=== PATIENT | male | born 1930 | race Caucasian/White ===

== ENCOUNTER 2016-06-29 11:18 | Observation (INO) ==
--- NOTE | 2016-06-29 11:38 | Emergency Department Note ---
Disposition Clinical Impression: REMEDIOS (acute kidney injury), Dizziness Disposition: Admitted As Inpatient Forms: ED Satisfaction Letter Time of Disposition: 14:41 Dizziness HPI - General Chief Complaint: ED Fall Stated Complaint: DIZZY/NEAR SYNCOPE. Time Seen by Provider: 06/29/16 11:21 Source: patient Mode of arrival: EMS Limitations: no limitations Nursing Notes Reviewed: Yes Vital Signs Reviewed: Yes - History of Present Illness HPI Narrative: 85-year-old male history of hypertension, hyperlipidemia, CAD status post CABG 1979 presents to the ED via EMS for fall secondary to dizziness. Reports getting up from his commode turning around to brush his teeth when he felt dizzy like the room is spinning and fell back landing in the top instructing the back of his head on the tube. Reports generalized weakness in his legs and was unable to get himself up from the tub. Reports taking a baby aspirin and states Eliquis sounds like a familiar drug. He has multiple abrasions to the upper extremity mostly on the right. No obvious signs of trauma to the head. He reports feeling dizzy like this a few days ago. He follows with a routing machine operator Dr. Ralph in [place]. Denies any loss of consciousness. Patient was alert through the entire event. Denies any prodromal symptoms such as chest pain, shortness of breath, nausea or vomiting. Denies any sudden headache. Denies history of seizures. Pt Subjective Complaint: dizziness, weakness - Related Data Home Medications Medication Instructions Recorded Confirmed Alprazolam [Xanax 0.25 MG Tablet] 0.25 mg PO DAILY PRN 02/18/16 06/29/16 Amiodarone HCl [Pacerone] 200 mg PO DAILY 02/18/16 06/29/16 Aspirin [Lo-Dose Aspirin EC] 81 mg PO DAILY 02/18/16 06/29/16 Atorvastatin Calcium [Lipitor] 80 mg PO HS 02/18/16 06/29/16 Finasteride [Proscar] 5 mg PO DAILY 02/18/16 06/29/16 Furosemide [Lasix] 40 mg PO DAILY 02/18/16 06/29/16 Levothyroxine Sodium [Levoxyl] 50 mcg PO QAM 02/18/16 06/29/16 Lisinopril [Zestril] 40 mg PO DAILY 02/18/16 06/29/16 Nitroglycerin [Nitrostat] 0.4 mg SL Q5M PRN 02/18/16 06/29/16 Oxybutynin Chloride [Ditropan Xl] 10 mg PO HS 02/18/16 06/29/16 Potassium Chloride [Klor-Con 10 meq PO TID 02/18/16 06/29/16 Sprinkle] TraMADol [Ultram] 50 mg PO TID 02/18/16 06/29/16 Cholecalciferol (Vitamin D3) 2,000 unit PO DAILY 06/29/16 06/29/16 [Vitamin D] Galantamine HBr [Razadyne] 4 mg PO QAM 06/29/16 06/29/16 Isosorbide MONOnitrate (24 HR) 60 mg PO BID 06/29/16 06/29/16 [Imdur] Vitamin E (Dl,Tocopheryl Acet) 400 unit PO DAILY 06/29/16 06/29/16 [Vitamin E] Allergies Allergy/AdvReac Type Severity Reaction Status Date / Time acetaminophen [From Percocet] AdvReac Hallucinati Verified 06/29/16 11:29 ng Oxycodone [From Percocet] AdvReac Hallucinati Verified 06/29/16 11:29 ng All systems ED: reviewed and negative except as stated. Constitutional: Denies: fever, chills Eyes: Denies: vision change Cardiovascular: Denies: chest pain, palpitations, dyspnea on exertion Respiratory: Denies: cough, dyspnea Gastrointestinal: Denies: abdominal pain, nausea, vomiting Musculoskeletal: Denies: neck pain Integumentary: Reports: abrasion. Denies: rash Neurological: Reports: weakness, vertigo. Denies: headache Past Medical History - Past Medical History Attestation: Yes The following information was validated with the patient. Source: patient Medical history: Reports: hyperlipidemia, hypertension Surgical history: Reports: coronary bypass (CABG) (1979) Psychiatric history: Reports: no psych history - Social History Smoking Status: Never smoker Smokeless Tobacco Status: No Alcohol use: Reports: none Drug use: Reports: none Physical Exam - General Limitations: no limitations General appearance: alert, in no apparent distress - Head Head exam: atraumatic, normocephalic, normal inspection - Expanded Head Exam Head exam physicial: Absent: laceration, contusion, hematoma, raccoon eyes, De La Cruz's sign - Eye Eye exam: Present: normal appearance, PERRL, EOMI. Absent: nystagmus - ENT ENT exam: normal exam, normal oropharynx, mucous membranes moist, TM's normal bilaterally - Neck Neck exam: Present: normal inspection, full ROM, trachea midline. Absent: tenderness - Expanded Neck Exam Neck exam focused ED: Absent: midline tenderness, paraspinal tenderness, anterior neck swelling - Chest Chest inspection: Present: normal inspection, symmetric chest wall rise, other ( midline stenotomy scar). Absent: tenderness, rash - Respiratory Respiratory exam: Present: normal lung sounds bilaterally. Absent: respiratory distress, wheezes - Cardiovascular Cardiovascular exam: Present: regular rate, normal rhythm, normal heart sounds, other (NO MURMUR ON VALSALVA). Absent: systolic murmur, diastolic murmur - Abdominal Exam Abdominal exam: Present: soft, Non-Tender, normal bowel sounds. Absent: tenderness, distention, guarding, rebound, rigidity - Extremities Exam Extremities exam: Present: full ROM, pedal edema (NON-PITTING, VENOUS STASIS), other (ABRASIONS TO RIGHT UPPER EXTREMITY (ELBOW AND HAND) AND LEFT ELBOW). Absent: tenderness - Back Exam Back exam: Present: normal inspection, full ROM. Absent: tenderness, vertebral tenderness - Neurological Exam Neurological exam: Present: alert, oriented X3, CN II-XII intact - Expanded Neurological Exam Patient oriented to: Present: person, place, time (SATURDAY, , INCORRECT = 2015, NOVEMBER) Speech: Present: fluid speech Cranial nerves: EOM function (II, III, IV, ): Normal, facial sensation (V): Normal, facial palsy (VII): Normal, gag reflex (IX): Normal, spinal accessory function (XI): Normal, tongue deviation (XII): Normal Motor strength - LUE: 5/5 Motor strength - RUE: 5/5 Motor strength - LLE: 5/5 Motor strength - RLE: 5/5 Upper motor neuron exam: nuno neglect: Absent bilaterally, pronator drift: Absent bilaterally Sensory exam upper extremity: light touch: Normal Sensory exam lower extremity: light touch: Normal - Psychiatric Psychiatric exam: Present: normal affect, normal mood - Skin Skin exam: Present: warm, dry, intact, normal color - Expanded Skin Exam Type of lesion: Present: abrasion (UPPER EXTREMITY) Course Course Narrative: 85-year-old male history of cardiac disease presents to the ED for dizziness and fall. Patient was unable to get up after falling due to weakness in his legs. This was after feeling dizzy while preparing to brush his teeth he felt back landing in the top. Denies any prodromal symptoms such a chest pain or shortness of breath. He is hypertensive on initial BP, will recheck. Patient appears in no acute distress. He is alert and oriented to person place and time. He does not have any neck tenderness. No acute signs of trauma to the head or face. There are no abrasions or contusions to the head. No hematomas or signs for basilar skull fracture. No facial instability. Neurologic exam is normal without any focal neural deficits. He has multiple abrasions to the upper extremity that do not need repair. Heart's regular rate and rhythm. He has of midline scar consistent with the bypass. Lungs are clear to auscultation bilaterally. Abdomen is soft nontender nondistended. We will get a cardiac workup and image his head and neck. Patient reports no pain at this time. Disposition pending results. May likely need admission as he lives alone at home. Reports his son is on his way. - Reevaluation(s) Reevaluation #1: His glucose is low at 66. He appears dehydrated on his labs. His creatinine functions 1.7. Will give him a meal to eat and reevaluate. His son Suhail is in the room and reports he has been told he has low blood sugars in the past. Confirms that patient does not take Eliquis and only a baby aspirin. Patient reports the medication Eliquis sounded familiar from the commercials. Time: 12:42 Reevaluation #2: Patient was able to tolerate a meal tray. He continues to report some dizziness but does feel much better than before. Orthostatics are negative. Repeat blood pressure 170/90. He has not had any active nausea or vomiting. He was able to keep everything down. EKG does not reveal any acute ischemic changes. Troponin is negative. CT images do not reveal any acute intracranial abnormality or fracture. Chest x-ray appears normal. Does appear dehydrated on labs with elevated BUN. Discussion with his son Suhail, would appreciate if he was admitted. Patient only eats frozen meals at home. Daughter lives in the same apartment complex as him and son lives 20 minutes away and prepares his medications. Has frequent episodes of dizziness but also low blood sugars they report. Would likely benefit with admission as he lives by himself. Impression is dizziness and REMEDIOS. Time: 14:35 - Consultations Consultation #1: Spoke with on-call hospitalist libertad Devi to admit for dizziness and REMEDIOS. No further orders at this time Time: 14:40 Vital Signs Temperature 97.4 F L 06/29/16 11:21 Pulse Rate 80 06/29/16 11:21 Respiratory Rate 16 06/29/16 11:21 Blood Pressure 201/98 06/29/16 11:21 O2 Sat by Pulse Oximetry 97 06/29/16 11:21 Temperature 98.5 F 06/29/16 15:56 Pulse Rate 58 06/29/16 15:56 Respiratory Rate 18 06/29/16 15:56 Blood Pressure 161/86 06/29/16 15:56 O2 Sat by Pulse Oximetry 98 06/29/16 15:56 Oxygen Delivery Oxygen Delivery Room Air Dizziness - Medical Records Medical records reviewed: Yes I reviewed the patient's medical records. - Lab Data Lab results reviewed: Yes I reviewed the patient's lab results. Result diagrams: 06/29/16 11:47 06/29/16 11:47 Lab Results 06/29/16 06/29/16 06/29/16 Range/Units 11:47 11:47 11:47 WBC 14.2 H (4.3-11.1) K/mcL RBC 4.21 (4.19-5.50) M/mcL Hgb 13.7 (12.9-16.9) g/dL Hct 42.9 (37.5-50.1) % MCV 101.9 H (83.0-100.0) fL MCH 32.5 (28.0-33.3) pg MCHC 31.9 (31.6-35.5) g/dL RDW 14.5 (11.5-14.5) % Plt Count 198 (140-400) K/mcL MPV 11.2 (9.4-12.4) fL Immature Gran % 0.6 (0-4) % Seg Neutrophils % 82.9 % Lymphocytes % 6.9 % Monocytes % 9.5 % Eosinophils % 0.0 % Basophils % 0.1 % Neutrophils # 11.8 H (1.6-8.9) K/mcL Lymphocytes # 1.0 (0.6-4.6) K/mcL Monocytes # 1.4 H (0.0-1.3) K/mcL Eosinophils # 0.0 (0.0-0.6) K/mcL Basophils # 0.0 (0.0-0.2) K/mcL Sodium 144 (136-145) mEq/L Potassium 3.3 L (3.5-4.5) mEq/L Chloride 104 (98-109) mEq/L Carbon Dioxide 31 H (19-29) mEq/L BUN 51 H (8-26) mg/dL Creatinine 1.70 H (0.72-1.25) mg/dL Est GFR ( Amer) 46 L (> 60) Est GFR (Non-Af Amer) 38 L (> 60) BUN/Creatinine Ratio 30 H (6-26) Glucose 66 L (70-99) mg/dL POC Glucose (58-89) Calculated Osmolality 310 H (280-300) Calcium 9.3 (8.6-10.8) mg/dL Troponin I 0.03 (0-0.03) ng/mL 06/29/16 Range/Units 15:58 WBC (4.3-11.1) K/mcL RBC (4.19-5.50) M/mcL Hgb (12.9-16.9) g/dL Hct (37.5-50.1) % MCV (83.0-100.0) fL MCH (28.0-33.3) pg MCHC (31.6-35.5) g/dL RDW (11.5-14.5) % Plt Count (140-400) K/mcL MPV (9.4-12.4) fL Immature Gran % (0-4) % Seg Neutrophils % % Lymphocytes % % Monocytes % % Eosinophils % % Basophils % % Neutrophils # (1.6-8.9) K/mcL Lymphocytes # (0.6-4.6) K/mcL Monocytes # (0.0-1.3) K/mcL Eosinophils # (0.0-0.6) K/mcL Basophils # (0.0-0.2) K/mcL Sodium (136-145) mEq/L Potassium (3.5-4.5) mEq/L Chloride (98-109) mEq/L Carbon Dioxide (19-29) mEq/L BUN (8-26) mg/dL Creatinine (0.72-1.25) mg/dL Est GFR ( Amer) (> 60) Est GFR (Non-Af Amer) (> 60) BUN/Creatinine Ratio (6-26) Glucose (70-99) mg/dL POC Glucose 90 H (58-89) Calculated Osmolality (280-300) Calcium (8.6-10.8) mg/dL Troponin I (0-0.03) ng/mL - Radiology Data Radiology results reviewed: Yes I reviewed the patient's radiology results. Chest X-Ray 06/29/16 11:33 IMPRESSION: Negative portable chest x-ray. No evidence of acute cardiopulmonary disease. D/ / Jorge Luis New MD / Jorge Luis New MD Interpreting Provider: Jorge Luis New MD Head CT 06/29/16 11:33 IMPRESSION: 1. No acute intracranial process identified. 2. Diffuse cerebral volume loss and chronic small vessel ischemic changes. D/ / Stu Rojas MD / Stu Rojas MD Interpreting Provider: Stu Rojas MD Cervical Spine CT 06/29/16 11:44 IMPRESSION: No acute abnormality of the cervical spine. Osteopenia with multilevel degenerative disc disease and facet arthropathy as outlined above. D/ / Yossi Hernandez MD / Yossi Hernandez MD Interpreting Provider: Yossi Hernandez MD - EKG Data EKG attestation: Yes I reviewed and interpreted this EKG. EKG results narrative: EKG performed 1123 normal sinus rhythm with first-degree AV block 69 bpm MD interval 228, left axis deviation, possible LVH from voltage in aVL >14 mm, there are no ST elevations or depressions, T-wave inversions seen in V2. Otherwise other intervals are within normal limits QRS 124 QT QTC 448 467. Compared to old EKG performed 02/18/2016 shows consistent findings T wave is upright in V2. No acute ischemic changes. Attestation Statement - Attestation Attestation: I examined this patient and my medical decision-making was reviewed with the RICE FARMWORKER/PA/Advanced Practice Nurse/Resident Physician. I agree with the documented findings, disposition and treatment plan as described except to the extent set forth below. Patient to the emergency department with a chief complaint of dizziness. Patient states he was brushing his teeth and he got dizzy. He fell backwards into the tub. Denies injury and states he feels better. History of similar episodes. He does have a history of heart disease. On exam he sitting up in bed awake alert in no distress. He has a few scattered abrasions. Lungs clear. Plan. Cardiac workup with imaging of the head and C-spine. Patient admitted for acute kidney injury and safety concerns.
[2016-06-29 12:05] LABS: Basophils % 0.1 %; Hematocrit 42.9 % (37.5-50.1); Hemoglobin 13.7 g/dL (12.9-16.9); Immature Granulocytes % 0.6 % (0-4); Lymphocytes % 6.9 %; Mean Corpuscular HGB Conc 31.9 g/dL (31.6-35.5); Mean Corpuscular Hemoglobin 32.5 pg (28.0-33.3); Mean Corpuscular Volume 101.9 fL (83.0-100.0); Mean Platelet Volume 11.2 fL (9.4-12.4); Monocytes # 1.4 K/mcL (0.0-1.3); Monocytes % 9.5 %; Neutrophils # 11.8 K/mcL (1.6-8.9); Platelet Count 198 K/mcL (140-400); Red Blood Count 4.21 M/mcL (4.19-5.50); Red Cell Distribution Width 14.5 % (11.5-14.5); Segmented Neutrophils % 82.9 %
[2016-06-29 12:16] LABS: Calcium 9.3 mg/dL (8.6-10.8); Potassium 3.3 mEq/L (3.5-4.5)
--- NOTE | 2016-06-29 15:08 | Electrocardiograph Report ---
[place] [id number] Test Date: 2016-06-29 Pat Name: Kelvin Ralph Department: 103 Room: 3B Gender: M Underwriting Account Representative: : 1930 Requested By: Ahmet Rivera Order Number: [id number] Reading MD: Rachel Medley Measurements Intervals [place] Rate: 69 P: 96 MA: 228 QRS: -48 QRSD: 124 T: 81 QT: 448 QTc: 467 Interpretive Statements SINUS RHYTHM WITH FIRST DEGREE AV BLOCK LEFT ANTERIOR FASCICULAR BLOCK LEFT VENTRICULAR HYPERTROPHY AND ST-T CHANGE POSSIBLE LATERAL MYOCARDIAL INFARCTION, OF INDETERMINATE AGE Electronically Signed On 06-29-2016 15:06:25 EDT by Rachel Medley
[2016-06-29] MEDS ORDERED: Ondansetron 4 MG/2 ML VIAL IVP PRN (15:44)
[2016-06-29] MEDS ORDERED: Naloxone 0.4 MG/ML INJ IVP PRN (15:44)
--- NOTE | 2016-06-29 16:01 | Internal Med History&Physical ---
<Enoc Santiago - Last Filed: 06/29/16 17:16> Date of Encounter: 06/29/16 Time of Encounter: 15:52 Assessment and Plan (1) Dizziness Current visit: Yes Status: Acute Patient is an 85 year old male with history of hypertension, hyperlipidemia, CAD s/p CABG, and OA who presented with complaint of dizziness resulting in fall. Family members reports history of low blood sugars and dehydration. EKG report revealed normal sinus rhythm with first degree AV block, left anterior fascicular block, LVH and st-t change, possible lateral NH or indeterminate age. Troponin at 11:47am was 0.03. CXR revealed no acute cardiopulomonary processes. CT head revealed no acute intracranial process, diffuse cerebral volume loss and chronic small vessel ischemic changes. CT cervical spine revealed no acute abnormality of cerval spine, osteopenia with multilevel degenerative disc disease and facet arthropathy. Calculated osmolality 310. Glucose 66. Orthostatic vitals: Lying Pulse 60, bp 177/78. Sitting Pulse 61, bp 183/93. Standing P63, bp 173/82. In the absence of current neurologic findings, dizziness may be secondary to mild dehydration with presence of REMEDIOS vs mild hypoglycemia vs possible infection with a leukocytosis of unknown origin vs due to polypharmacy vs cardiac related with a history of CAD s/p CABG. Though TIA is a possibility considering the reported history of lower extremity weakness and dizziness. Continue to monitor vitals IVF normal saline 125mL/hr Monitor I/O Encourage oral hydration. Continue following labs. UA pending. MRI head wo contrast. Echo ordered Hold tramadol, oxybutynin, lasix home medications. Fall precautions. Social work consulted for living situation (lives alone, no lifealert). (2) Leukocytosis Current visit: Yes Status: Acute Elevated WBC at 14.2. Vitals upon arrival to ED: Temp 97.4, Pulse 80, Resp 16, bp 201/98, 97% on room air. Repeat bp was 156/84. CXR revealed no acute cardiopulmonary processes. UA pending Qualifiers: Leukocytosis type: unspecified Qualified Code(s): D72.829 - Elevated white blood cell count, unspecified (3) REMEDIOS (acute kidney injury) Current visit: Yes Status: Acute Patient with no known history of kidney problems was determined to have a Cr of 1.70 and estimated GFR 38. IVF normal saline 125mL/hr Encourage oral hydration. UA pending. Hold Lasix. (4) Hypokalemia Current visit: Yes Status: Acute Potassium 3.3 Continue home medication Additional 40mEQ potassium chloride ordered. Continue to monitor labs. (5) Hypothyroid Current visit: Yes Status: Chronic Continue home medications for chronic disease management. Thyroid cascade ordered. Qualifiers: Hypothyroidism type: unspecified Qualified Code(s): E03.9 - Hypothyroidism , unspecified (6) Hypertension Current visit: Yes Status: Chronic Continue home medications for chronic disease management. Continue monitoring vitals. Qualifiers: Hypertension type: essential hypertension Qualified Code(s): I10 - Essential (primary) hypertension (7) CAD (coronary artery disease) Current visit: Yes Status: Chronic Continue per plan in assessments above. Qualifiers: Coronary Disease-Associated Artery/Lesion type: unspecified vessel or lesion type [place] vs. transplanted heart: unspecified whether [place] or transplanted heart Associated angina: without angina Qualified Code(s): I25.10 - Atherosclerotic heart disease of [place] coronary artery without angina pectoris (8) Hyperlipidemia Current visit: Yes Status: Chronic Continue home medications for chronic disease management. Lipid cascade ordered. Qualifiers: Hyperlipidemia type: unspecified Qualified Code(s): E78.5 - Hyperlipidemia , unspecified (9) DVT prophylaxis Current visit: Yes Status: Acute Lovenox sq for dvt ppx. Internal Medicine - H&P: HPI Chief complaint: Dizziness, REMEDIOS Admitted From: Emergency Dept History of present illness: Mr. 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 Patient reports that at about 0830am this morning he woke up and was doing his normal morning routine. He stood up from the commode, turned around to brush his teeth, and developed some dizziness further explained as the room spinning before falling backwards into his tub. Patient reported some bilateral lower extremity weakness when episode occurred and initially wasn't able to get out of the tub himself. Patient reports he did not hit his head and was conscious/aware throughout entire episode. Patient eventually regained his strength and crawled out of the tub to call his daughter who lives in the same apartment complex before EMS was called. Dizziness resolved within a couple seconds. Has had several episodes of similar dizziness without falls in the past week. Patient takes a daily baby aspirin, no other blood thinners. Patient denies fevers, chills, sweats, changes in vision or hearing, headaches, nausea, vomiting, changes in appetite, chest pain or pressure, shortness of breath, abdominal pain, changes in bowels or bladder, or loss of sensation. Patient reports he lives alone in an apartment and uses a walker for ambulation. Patient notes that he recently had a right hip steroid injection for his OA two days ago with much improvement in pain and mobility of his lower extremity. Review of ER notes indicates family members also report patient was told he has had previous low blood sugars and dehydration in the past. Past Med Surg Social Fam HX - Past Medical History Medical history: coronary artery disease (s/p CABG ), hyperlipidemia, hypertension Psychiatric history: no psych history - Past Surgical History Surgical History: coronary bypass (CABG), hip replacement - Social History Smoking Status: Never smoker Smokeless Tobacco Status: No Alcohol use: none Drug use: none Occupational status: retired Current living situation: Home - Independent Activity Level: Uses cane/walker Recent Out of Country Travel Within the Last 8 Weeks: No Exposure or Possible Exposure to Illness During Travel: No - Family History Mother Age at : 108 Hx Family Cardiac Disorders: No Hx Family Respiratory Disorders: No Hx Family Cancer: No Hx Family GI Disorders: Yes (stomach acid) Hx Family Genitourinary Disorders: No Hx Family Endocrine Disorder: No Hx Family Musculoskeletal Disorders: No Hx Family Neuromuscular Disorders: No Hx Family Neurologic Disorders: No Hx Family HEENT Disorders: No Hx Family Autoimmune Disorders: No Hx Family Reproductive Disorders: No Hx Family Psychosocial Disorders: No Hx Family Medical Disorders: No Father Age at : 67 Cause of : NH Hx Family Cardiac Disorders: Yes (NH) Hx Family Respiratory Disorders: No Hx Family Cancer: No Hx Family GI Disorders: No Hx Family Genitourinary Disorders: No Hx Family Endocrine Disorder: No Hx Family Musculoskeletal Disorders: No Hx Family Neuromuscular Disorders: No Hx Family Neurologic Disorders: No Hx Family HEENT Disorders: No Hx Family Autoimmune Disorders: No Hx Family Reproductive Disorders: No Hx Family Psychosocial Disorders: No Hx Family Medical Disorders: No Internal Medicine - H&P: Meds Alprazolam [Xanax 0.25 MG Tablet] 0.25 mg PO DAILY PRN 02/18/16 [History] Amiodarone HCl [Pacerone] 200 mg PO DAILY 02/18/16 [History] Aspirin [Lo-Dose Aspirin EC] 81 mg PO DAILY 02/18/16 [History] Atorvastatin Calcium [Lipitor] 80 mg PO HS 02/18/16 [History] Finasteride [Proscar] 5 mg PO DAILY 02/18/16 [History] Furosemide [Lasix] 40 mg PO DAILY 02/18/16 [History] Levothyroxine Sodium [Levoxyl] 50 mcg PO QAM 02/18/16 [History] Lisinopril [Zestril] 40 mg PO DAILY 02/18/16 [History] Nitroglycerin [Nitrostat] 0.4 mg SL Q5M PRN 02/18/16 [History] Oxybutynin Chloride [Ditropan Xl] 10 mg PO HS 02/18/16 [History] Potassium Chloride [Klor-Con Sprinkle] 10 meq PO TID 02/18/16 [History] TraMADol [Ultram] 50 mg PO TID 02/18/16 [History] Cholecalciferol (Vitamin D3) [Vitamin D] 2,000 unit PO DAILY 06/29/16 [History] Galantamine HBr [Razadyne] 4 mg PO QAM 06/29/16 [History] Isosorbide MONOnitrate (24 HR) [Imdur] 60 mg PO BID 06/29/16 [History] Vitamin E (Dl,Tocopheryl Acet) [Vitamin E] 400 unit PO DAILY 06/29/16 [History] Allergies acetaminophen [From Percocet] Adverse Reaction (Verified 06/29/16 11:29) Hallucinating Oxycodone [From Percocet] Adverse Reaction (Verified 06/29/16 11:29) Hallucinating All Systems PM: A 10-system review of systems was performed and is negative for pertinent findings except as documented above in the HPI. - Constitutional Constitutional: as per HPI, weakness, no chills, no excessive sweating, no fatigue, no fever(s) - EENT Eyes: as per HPI, no change in vision Ears: as per HPI Nose, mouth and throat: as per HPI, no dry mouth, no neck pain, no sore throat - Cardiovascular Cardiovascular ROS IM: as per HPI, no chest pain, no diaphoresis, no dyspnea, no dyspnea on exertion, no edema, no irregular heart rhythm, no palpitations, no syncope - Respiratory Respiratory: as per HPI, no cough, no dyspnea, no wheezing - Gastrointestinal Gastrointestinal: as per HPI, no abdominal pain, no change in bowel habits, no constipation, no diarrhea, no dysphagia, no heartburn, no nausea, no vomiting - Genitourinary Genitourinary ROS male: as per HPI, no dysuria, no flank pain, no hematuria - Musculoskeletal Musculoskeletal ROS IM: as per HPI, no back pain, no muscle cramps, no neck pain , no numbness, no tingling - Integumentary Integumentary IM: as per HPI, no erythema, no rash, no unusual bruising - Neurological Neurological ROS: as per HPI, dizziness, weakness, no abnormal speech, no behavioral changes, no confusion, no frequent falls, no headache(s), no lack of coordination, no numbness, no tingling - Constitutional Vitals: Temp Pulse Resp BP Pulse Ox 97.4 F L 65 16 173/82 97 06/29/16 11:21 06/29/16 13:43 06/29/16 15:09 06/29/16 15:09 06/29/16 13:43 General appearance: Present: cooperative, A&O X 3, pleasant, no acute distress, answers questions appropriately - Head Head exam: Present: atraumatic, normal inspection, normocephalic - Eye Eye exam: Present: EOMI, normal appearance, PERRL - ENT ENT exam: Present: mucous membranes moist, normal exam, normal external ear exam , normal oropharynx - Neck Neck exam general surgery: Present: full ROM, normal inspection, supple, trachea midline. Absent: tenderness - Respiratory Respiratory exam: Present: CTAB. Absent: rales, rhonchi, wheezes Additional comments: midline chest scar - Cardiovascular Cardiovascular exam: Present: RRR, +S1, +S2. Absent: diastolic murmur, JVD, systolic murmur - GI/Abdominal GI/Abdominal exam: Present: normal bowel sounds, soft. Absent: distended, guarding, tenderness - Extremities Exam Extremities exam: Present: full ROM, warm, radial pulses palpable and symetrical. Absent: calf tenderness, pedal edema, tenderness - Back Exam Back exam: Present: full ROM, normal inspection. Absent: paraspinal tenderness , tenderness, vertebral tenderness - Neurological Exam Neurological exam: Present: alert, CN II-XII intact, oriented X3, reflexes normal, no focal deficits, strengths equal and symetr throughout. Absent: motor sensory deficit, facial droop, speech deficit - Psychiatric Psychiatric exam: Present: normal affect, normal mood - Skin Skin exam: Present: abrasion (bilateral R>L upper extremity, and ecchymosis), dry, intact, normal color, warm. Absent: diaphoretic, erythema, pallor Internal Med - H&P Results - Labs CBC & Chem 7: 06/29/16 11:47 06/29/16 11:47 <Davon Graham - Last Filed: 06/29/16 17:47> Internal Medicine - H&P: HPI History of present illness: Mr. Ralph is a 85 year old male All Systems PM: A 10-system review of systems was performed and is negative for pertinent findings except as documented above in the HPI. - Constitutional Vitals: Temp Pulse Resp BP Pulse Ox 98.5 F 58 18 161/86 98 06/29/16 15:56 06/29/16 15:56 06/29/16 15:56 06/29/16 15:56 06/29/16 15:56 Internal Med - H&P Results - Labs CBC & Chem 7: 06/29/16 11:47 06/29/16 11:47 - Attending Attestation I examined this patient and my medical decision-making was reviewed with the SQE/PA/Advanced Practice Nurse/Resident Physician. I agree with the documented findings, disposition and treatment plan as described except to the extent set forth below. Patient seen at bedside independently 85-year-old M with hypertension , CAD s/p CABG in the past, HLD, hypothyroid Presented with presyncope and fall without head trauma patient denied preceding or current CP, SOB, Palpitations, dysuria, cough, abdominal discomfort, nausea/vomiting/diarrhea Physical exam revealed an elderly man AAOX3, not in distress, VSS. NO neurologic deficits, no speech or motor deficit, moves all limbs equally, chest is clear, HS S1, S2 only. Abdomen is bening, extremity with chronic venous stasis changes, and trace edema Labs and Imaging reviewed Leukocytosis with left shift, normal HB, Chem with hypokalemia and REMEDIOS. Head/C- spine CT and CXR unremarkable. EKG with sinus rhythm, 1st dgeree AV block and LAFB, LVH Initial trop negative A/P: Presyncope, REMEDIOS, Leukocytosis. R/O TIA, Obtain Brain MRI, Send UA, Hydrate patient, hole ACEI/Lasix/Sedating medications for now. Obtain ECHO. IVF hydration, Renal USS, monitor Chem. Check TSH. Fall precautions. Telemetry. Replace potassium Rest of details as in resident's documentation *
[2016-06-29] MEDS: 0.9 % Sodium Chloride 1,000 ML IVC SCH (16:30)
[2016-06-29] MEDS ORDERED: Nitroglycerin 0.4 MG TAB.SUBL SL PRN (17:08)
[2016-06-29] MEDS ORDERED: ALPRAZolam 0.25 MG TABLET PO PRN (17:08)
[2016-06-29] MEDS: Isosorbide MONOnitrate (24 HR) 60 MG TAB.ER.24H PO SCH (22:48)
[2016-06-30] MEDS: Loratadine 10 MG TABLET PO SCH ×2 (00:50→09:15)
[2016-06-30 01:58] LABS: Basophils % 0.2 %; Eosinophils # 0.1 K/mcL (0.0-0.6); Eosinophils % 0.5 %; Hemoglobin 14.9 g/dL (12.9-16.9); Immature Granulocytes % 0.5 % (0-4); Lymphocytes # 2.1 K/mcL (0.6-4.6); Lymphocytes % 16.7 %; Mean Corpuscular HGB Conc 32.4 g/dL (31.6-35.5); Mean Corpuscular Hemoglobin 32.7 pg (28.0-33.3); Mean Corpuscular Volume 100.9 fL (83.0-100.0); Mean Platelet Volume 11.2 fL (9.4-12.4); Monocytes # 1.1 K/mcL (0.0-1.3); Monocytes % 8.6 %; Neutrophils # 9.5 K/mcL (1.6-8.9); Platelet Count 190 K/mcL (140-400); Red Blood Count 4.56 M/mcL (4.19-5.50); Red Cell Distribution Width 14.1 % (11.5-14.5); Segmented Neutrophils % 73.5 %
[2016-06-30 02:03] LABS: Prothrombin Time 11.3 Seconds (9.4-12.1)
[2016-06-30 02:06] LABS: Activated Partial Thrombo Time 25.1 Seconds (26.0-36.0)
[2016-06-30 02:17] LABS: Calcium 8.8 mg/dL (8.6-10.8); Chol/HDL Ratio 3.7 (0-4.9); Potassium 3.8 mEq/L (3.5-4.5)
[2016-06-30] MEDS: 0.9 % Sodium Chloride 1,000 ML IVC SCH ×2 (03:14→09:13)
[2016-06-30 04:57] LABS: Bilirubin,Urine Negative (Negative); Blood,Urine Negative (Negative); Clarity,Urine Clear (Clear); Color,Urine Yellow (Yellow); Glucose,Urine (UA) Normal (Normal); Ketones,Urine Negative (Negative); Leukocyte Esterase,Urine Negative (Negative); Nitrite,Urine Negative (Negative); PH,Urine 6.5 pH Units (5.0-8.0); Protein,Urine Negative (Neg-Trace); Specific Gravity,Urine 1.011 (1.010-1.025); Urobilinogen,Urine Normal (Normal)
[2016-06-30] MEDS: *HR* Enoxaparin 40 MG/0.4 ML SYRINGE SQ SCH (06:50)
[2016-06-30] MEDS ORDERED: Lisinopril 20 MG TABLET PO SCH (09:00)
[2016-06-30] MEDS: Cholecalciferol (D-3) 1,000 UNIT TABLET PO SCH (09:14)
[2016-06-30] MEDS: Finasteride 5 MG TABLET PO SCH (09:14)
[2016-06-30] MEDS: amLODIPine 5 MG TABLET PO SCH (09:15)
[2016-06-30] MEDS: Isosorbide MONOnitrate (24 HR) 60 MG TAB.ER.24H PO SCH ×2 (09:15→22:09)
[2016-06-30] MEDS: *HR* Amiodarone 200 MG TABLET PO SCH (09:15)
[2016-06-30] MEDS: Aspirin Enteric Coated 81 MG Tablet PO SCH (09:15)
[2016-06-30] MEDS: Azelastine 0.1% Nasal Spray 30 ML BOTTLE NS SCH ×2 (09:16→22:09)
--- NOTE | 2016-06-30 09:26 | Internal Med Progress Note ---
Date of Encounter: 06/30/16 Time of Encounter: 09:25 - Assessment and plan (1) REMEDIOS (acute kidney injury) Current Visit: Yes Status: Acute Assessment and plan: Improving with hydration REMEDIOS is post-renal from Bladder USS findings Bedside bladder scan was 360cc [facility] [place] catheter eval prior to d/c (2) Dizziness Current Visit: Yes Status: Acute Assessment and plan: Possibly due to dehydration and REMEDIOS EKG report revealed normal sinus rhythm with first degree AV block, left anterior fascicular block, LVH and st-t change, possible lateral [place] or indeterminate age. Troponin 0.03/0.04/0.06. CXR revealed no acute cardiopulomonary processes. CT head revealed no acute intracranial process, diffuse cerebral volume loss and chronic small vessel ischemic changes. Brain MRI unremarkable CT cervical spine revealed no acute abnormality of cerval spine, osteopenia with multilevel degenerative disc disease and facet arthropathy. Orthostatics negative Continue to monitor vitals D/C IVF Monitor I/O Encourage oral hydration. Continue following labs. Hold tramadol, oxybutynin, lasix home medications. Fall precautions. Social work consult (3) DVT prophylaxis Current Visit: Yes Status: Acute Assessment and plan: Enoxaparin (4) Leukocytosis Current Visit: Yes Status: Acute Assessment and plan: Imrpoved slightly from 1 to 12 UA unremarkable No evidence of UTI Continue to monitor Qualifiers: Leukocytosis type: unspecified Qualified Code(s): D72.829 - Elevated white blood cell count, unspecified (5) Hypokalemia Current Visit: Yes Status: Acute Assessment and plan: Improved (6) Hypothyroid Current Visit: Yes Status: Chronic Assessment and plan: Chronic, stable, continue home meds Qualifiers: Hypothyroidism type: unspecified Qualified Code(s): E03.9 - Hypothyroidism , unspecified (7) Hypertension Current Visit: Yes Status: Chronic Assessment and plan: Uncontrolled BP this a.m Add Norvasc Will resume lasix and Lisinopril when renal function returns to baseline Qualifiers: Hypertension type: essential hypertension Qualified Code(s): I10 - Essential (primary) hypertension (8) Hyperlipidemia Current Visit: Yes Status: Chronic Assessment and plan: Chronic stable, continue home meds Qualifiers: Hyperlipidemia type: unspecified Qualified Code(s): E78.5 - Hyperlipidemia , unspecified (9) CAD (coronary artery disease) Current Visit: Yes Status: Chronic Assessment and plan: Chronic stable Elevated troponins are adynamic, EKG non-ischemic, ECHO with no WMA Continue home meds Qualifiers: Coronary Disease-Associated Artery/Lesion type: unspecified vessel or lesion type [place] vs. transplanted heart: unspecified whether [place] or transplanted heart Associated angina: without angina Qualified Code(s): I25.10 - Atherosclerotic heart disease of [place] coronary artery without angina pectoris - Subjective Interval history: 85 Y/O M on admission and being managed for presyncope and REMEDIOS He is seen at bedside with RN at the bedside He denies new complains, he denies CP, SOB, nausea, or abdominal symptoms Lab and Imaging reviewed: ECHO noted for LVEF 50-55%, mild LVDD, atypical septal motion, no significant valvular dysfunction, no pulm HTN, no WMA. Renal USS revealed evidence of MCGUIRE and post-void urine of 555cc Brain MRI -no acute abnormality, troponin slightly elevated - Constitutional Vitals: Temp Pulse Resp BP Pulse Ox 97.9 F 69 16 174/91 95 06/30/16 07:21 06/30/16 07:21 06/30/16 07:21 06/30/16 07:21 06/30/16 07:21 General appearance: Present: cooperative, A&O X 3, pleasant, no acute distress, answers questions appropriately - Head Head exam: Present: atraumatic, normocephalic - Eye Eye exam: Present: PERRL, conjuntiva pink, sclera anicteric Pupils: Present: PERRL - Neck Neck exam general surgery: Present: supple, trachea midline. Absent: lymphadenopathy - Respiratory Respiratory exam: Present: CTAB. Absent: accessory muscle use, rales, rhonchi, wheezes - Cardiovascular Cardiovascular exam: Present: RRR, +S1, +S2. Absent: diastolic murmur, gallop, rubs, systolic murmur - GI/Abdominal GI/Abdominal exam: Present: normal bowel sounds, soft, no peritoneal signs. Absent: distended, tenderness - Extremities Exam Extremities exam: Present: warm, radial pulses palpable and symetrical. Absent : calf tenderness, cyanotic, pedal edema - Neurological Exam Neurological exam: Present: CN II-XII intact, oriented X3, no focal deficits. Absent: pronater drift, facial droop, speech deficit - Skin Skin exam: Present: dry Internal Medicine: Result - Labs CBC & Chem 7: 06/30/16 01:40 06/30/16 01:40 Labs: Short CBC 06/30/16 Range/Units 01:40 WBC 12.9 H (4.3-11.1) K/mcL Hgb 14.9 (12.9-16.9) g/dL Hct 46.0 (37.5-50.1) % Plt Count 190 (140-400) K/mcL Neutrophils # 9.5 H (1.6-8.9) K/mcL BMP 06/30/16 01:40 Sodium 142 Potassium 3.8 Chloride 105 Carbon Dioxide 26 BUN 39 H D Creatinine 1.59 H Glucose 82 Calcium 8.8 Cardiac Enzymes 06/29/16 06/30/16 Range/Units 17:22 01:40 Troponin I 0.03 0.06 H* (0-0.03) ng/mL Urine 06/30/16 Range/Units 04:35 Urine Color Yellow (Yellow) Urine Clarity Clear (Clear) Urine pH 6.5 (5.0-8.0) pH Units Ur Specific [place] 1.011 (1.010-1.025) Urine Protein Negative (Neg-Trace) mg/dL Urine Glucose (UA) Normal (Normal) mg/dL - ABG Interpretation ABG results: PT/INR, D-dimer PT 11.3 Seconds (9.4-12.1) 06/30/16 01:40 - Impressions Impressions Brain MRI 06/29/16 17:04 IMPRESSION: Cerebral atrophy. Chronic small vessel ischemic changes. Stable findings when compared to 2011. No new or acute process appreciated. D/ / 06/29/2016 18:14:19 Yudelka Ralph MD / arlen Interpreting Provider: Yudelka Ralph MD Retroperitoneum Ultrasound 06/29/16 20:30 IMPRESSION: 1. Unremarkable ultrasound of the kidneys without hydronephrosis. 2. Increased postvoid bladder volume. Correlate for bladder outlet obstruction. D/ / 06/30/2016 07:05:37 Owen Hernandez MD / radha Interpreting Provider: Owen Hernandez MD Consult Discharge Plan - Plan Referrals: NO,PCP [Primary Care Provider] -
--- NOTE | 2016-06-30 15:21 | ECHO - Doppler Report ---
Echocardiogram Name: Kelvin Ralph Date of Study: 06/30/2016 Date: 1930 Ht: 60.0 in Medical Record#: [id number] Age: 85 Wt: 190.0 lb Gender: Male BSA: 1.83 Order #: [id number] Location: [facility] Room #: [id number] Reading Physician: Marylu Tena DO [employer] Apprentice: Aranza Thompson RVT, [facility] Ordering Physician: Enoc Santiago DO Primary Physician: None Indications: dizziness Impressions: LVEF 50-55%. There is evidence of mild diastolic dysfunction of the left ventricle. Atypical septal motion. Normal right ventricular size and function. No significant valvular dysfunction. No pulmonary hypertension. Left Ventricular Wall Motion: Rest Echo Findings All wall segments showed normal motion. Findings: Study Quality * Technically adequate exam. ECG Findings * Normal sinus rhythm. Left Ventricle * Atypical septal motion consistent with post-operative status. * LVEF 50-55%. * Mild left ventricular diastolic dysfunction. Left Atrium * Mildly dilated left atrium. Mitral Valve * No mitral stenosis. * Trace mitral regurgitation. * Mildly thickened mitral valve leaflets. Aortic Valve * No aortic regurgitation. * Trileaflet aortic valve. * No aortic stenosis. * Mildly thickened aortic valve leaflets. Tricuspid Valve * Tricuspid valve not well visualized. * Trace tricuspid regurgitation. Right Ventricle * Normal right ventricular structure and function. Right Atrium * Normal right atrial size. Pulmonary Artery * Pulmonary artery not well visualized. Pulmonic Valve * Pulmonic valve is not well visualized. * No pulmonic stenosis. * No pulmonic regurgitation. Interatrial Septum * No evidence of PFO by color Doppler. Pericardium * There is no pericardial effusion present. IVC * The IVC is not well evaluated. Aorta * Normally sized aortic root. History Hypertension Hypercholesteremia Family History of CAD History of CAD/PTCA Coronary Artery Bypass Graft 04/09/2012 a Previous Echo was performed. Measurements: BP: 174/ 91 2D Normal Values RVIDd: 2.91 cm <2.7 cm IVSd: 1.10 cm 0.6 - 1.0 cm LVIDd: 4.80 cm 3.7 - 5.6 cm LVPWd: 1.07 cm 0.6 - 1.1 cm LVIDs: 3.23 cm 1.5 - 3.6 cm AO: 3.30 cm < 4.0 cm LA: 3.90 cm 2.0 - 4.0cm %FS: 32.70 cm >25 % LVOT Diam: 2.20 cm LA volume: 63 Mitral Valve Peak E:.42 m/sec Peak A:.69 m/sec E/A Ratio:0.6 Peak E' Lat Jeremy:6.53 cm/s Peak E' Med Jeremy:4.46 cm/s E/E' Lat Ratio:6.4 E/E' Med Ratio:9.3 Tricuspid Valve TV Regurg Peak Grad: 20.00mmHg TV Regurg Peak Jeremy: 2.21m/sec Updated by Marylu Tena on 06/30/2016 3:16:46 PM electronically signed on 06/30/2016 3:17:28 PM with status of Final Wall Motion [place]: 1=Normal, 2=Hypokinesis, 3=Akinesis, 4=Dyskinesis, 5=Aneurysmal, 6=Hyperkinetic, X=Not Visualized (Blank)=Missing
[2016-06-30] MEDS ORDERED: Gabapentin 100 MG CAPSULE PO ONE (17:40)
[2016-06-30] MEDS: Fluticasone Propionate Nasal 50 MCG/SPRAY BOTTLE NS SCH (22:07)
[2016-07-01] MEDS: *HR* Enoxaparin 40 MG/0.4 ML SYRINGE SQ SCH (05:51)
[2016-07-01 08:46] LABS: Basophils % 0.3 %; Eosinophils # 0.3 K/mcL (0.0-0.6); Eosinophils % 2.5 %; Hematocrit 46.5 % (37.5-50.1); Hemoglobin 15.2 g/dL (12.9-16.9); Immature Granulocytes % 0.5 % (0-4); Lymphocytes # 1.8 K/mcL (0.6-4.6); Lymphocytes % 17.3 %; Mean Corpuscular HGB Conc 32.7 g/dL (31.6-35.5); Mean Corpuscular Hemoglobin 32.6 pg (28.0-33.3); Mean Corpuscular Volume 99.8 fL (83.0-100.0); Monocytes # 1.2 K/mcL (0.0-1.3); Neutrophils # 7.3 K/mcL (1.6-8.9); Platelet Count 186 K/mcL (140-400); Red Blood Count 4.66 M/mcL (4.19-5.50); Segmented Neutrophils % 68.4 %
[2016-07-01 08:57] LABS: BUN/Creatinine Ratio 19 (6-26); Calcium 8.6 mg/dL (8.6-10.8); Carbon Dioxide 31 mEq/L (19-29); Chloride 105 mEq/L (98-109); Glucose 112 mg/dL (70-99); Osmolality,Calculated 303 (280-300); Potassium 3.9 mEq/L (3.5-4.5); Sodium 144 mEq/L (136-145); eGFR For African Americans > 60 (> 60); eGFR For Non-African Americans 53 (> 60)
[2016-07-01 08:59] LABS: Blood Urea Nitrogen 25 mg/dL (8-26)
[2016-07-01] MEDS: Aspirin Enteric Coated 81 MG Tablet PO SCH (09:15)
[2016-07-01] MEDS: Finasteride 5 MG TABLET PO SCH (09:15)
[2016-07-01] MEDS: Cholecalciferol (D-3) 1,000 UNIT TABLET PO SCH (09:15)
[2016-07-01] MEDS: amLODIPine 5 MG TABLET PO SCH (09:15)
[2016-07-01] MEDS: *HR* Amiodarone 200 MG TABLET PO SCH (09:15)
[2016-07-01] MEDS: Loratadine 10 MG TABLET PO SCH (09:15)
[2016-07-01] MEDS: Isosorbide MONOnitrate (24 HR) 60 MG TAB.ER.24H PO SCH ×2 (09:15→21:05)
[2016-07-01] MEDS: Azelastine 0.1% Nasal Spray 30 ML BOTTLE NS SCH ×2 (09:20→21:06)
--- NOTE | 2016-07-01 10:53 | Discharge Summary ---
Date of Encounter: 07/01/16 Time of Encounter: 10:53 - Discharge Diagnosis (1) REMEDIOS (acute kidney injury) Status: Acute (2) Dizziness Status: Acute (3) DVT prophylaxis Status: Acute (4) Leukocytosis Status: Acute Qualifiers: Leukocytosis type: unspecified Qualified Code(s): D72.829 - Elevated white blood cell count, unspecified (5) Hypokalemia Status: Acute (6) Hypothyroid Status: Chronic Qualifiers: Hypothyroidism type: unspecified Qualified Code(s): E03.9 - Hypothyroidism , unspecified (7) Hypertension Status: Chronic Qualifiers: Hypertension type: essential hypertension Qualified Code(s): I10 - Essential (primary) hypertension (8) Hyperlipidemia Status: Chronic Qualifiers: Hyperlipidemia type: unspecified Qualified Code(s): E78.5 - Hyperlipidemia , unspecified (9) CAD (coronary artery disease) Status: Chronic Qualifiers: Coronary Disease-Associated Artery/Lesion type: unspecified vessel or lesion type [place] vs. transplanted heart: unspecified whether [place] or transplanted heart Associated angina: without angina Qualified Code(s): I25.10 - Atherosclerotic heart disease of [place] coronary artery without angina pectoris - Discharge Medications Prescriptions: Loratadine [Claritin] 10 mg PO DAILY #30 tablet Home Medications: Alprazolam [Xanax 0.25 MG Tablet] 0.25 mg PO DAILY PRN 02/18/16 [History] Amiodarone HCl [Pacerone] 200 mg PO DAILY 02/18/16 [History] Aspirin [Lo-Dose Aspirin EC] 81 mg PO DAILY 02/18/16 [History] Atorvastatin Calcium [Lipitor] 80 mg PO HS 02/18/16 [History] Finasteride [Proscar] 5 mg PO DAILY 02/18/16 [History] Furosemide [Lasix] 40 mg PO DAILY 02/18/16 [History] Levothyroxine Sodium [Levoxyl] 50 mcg PO QAM 02/18/16 [History] Lisinopril [Zestril] 40 mg PO DAILY 02/18/16 [History] Nitroglycerin [Nitrostat] 0.4 mg SL Q5M PRN 02/18/16 [History] Oxybutynin Chloride [Ditropan Xl] 10 mg PO HS 02/18/16 [History] Potassium Chloride [Klor-Con Sprinkle] 10 meq PO TID 02/18/16 [History] TraMADol [Ultram] 50 mg PO TID 02/18/16 [History] Cholecalciferol (Vitamin D3) [Vitamin D3] 2,000 unit PO DAILY 06/29/16 [History] Galantamine HBr [Razadyne] 4 mg PO QAM 06/29/16 [History] Isosorbide MONOnitrate (24 HR) [Imdur] 60 mg PO BID 06/29/16 [History] Vitamin E (Dl,Tocopheryl Acet) [Vitamin E] 400 unit PO DAILY 06/29/16 [History] Loratadine [Claritin] 10 mg PO DAILY #30 tablet 07/01/16 [Rx] Allergies/Adverse Reactions: Allergies acetaminophen [From Percocet] Adverse Reaction (Verified 06/29/16 11:29) Hallucinating Oxycodone [From Percocet] Adverse Reaction (Verified 06/29/16 11:29) Hallucinating Procedures/tests Complete & Pending: Procedures Performed prior 72 hours Category Date Time Status Retroperitoneal Ultrasound - Complete [US Exams 06/29/16 20:30 Draft retroperitoneal comp] [US] Routine MR head/brain wo con [MR] Stat MRI 06/29/16 17:04 Completed EV echocardiogram Routine Y 06/30/16 17:07 Completed Date of admission: 06/29/16 15:01 Primary care physician: PCP NO Consults: 06/29/16 15:51 Consult to Patient Resource Specialist [CONS] Routine Reason for SW Consult: lives at home alone, fell today - Patient Status Condition: Good - Discharge Instructions Follow Up With: NO,PCP [Primary Care Provider] - Forms: ED Satisfaction Letter Hospital course: Mr. Ralph is a 85 year old male - Time Spent with Patient Total time spent providing and/or coordinating discharge services: - Constitutional Vitals: Temp Pulse Resp BP Pulse Ox 98.3 F 78 16 148/96 98 07/01/16 08:14 07/01/16 08:14 07/01/16 08:14 07/01/16 08:14 07/01/16 08:14 General appearance: Present: cooperative, A&O X 3, pleasant, no acute distress, answers questions appropriately
--- NOTE | 2016-07-01 11:52 | Internal Med Progress Note ---
Date of Encounter: 07/01/16 Time of Encounter: 11:00 - Assessment and plan (1) REMEDIOS (acute kidney injury) Current Visit: Yes Status: Acute Assessment and plan: Resolved REMEDIOS is post-renal from Bladder USS findings Bedside bladder scan was 360cc Will be discharged home on Martin Spoke with Dr. Mendiola, will follow in clinic for voiding trial (2) Dizziness Current Visit: Yes Status: Acute Assessment and plan: Possibly due to dehydration and REMEDIOS EKG report revealed normal sinus rhythm with first degree AV block, left anterior fascicular block, LVH and st-t change, possible lateral DC or indeterminate age. Troponin 0.03/0.04/0.06. CXR revealed no acute cardiopulomonary processes. CT head revealed no acute intracranial process, diffuse cerebral volume loss and chronic small vessel ischemic changes. Brain MRI unremarkable CT cervical spine revealed no acute abnormality of cerval spine, osteopenia with multilevel degenerative disc disease and facet arthropathy. Orthostatics negative Work up negative PT/OT eval (3) DVT prophylaxis Current Visit: Yes Status: Acute Assessment and plan: Enoxaparin (4) Leukocytosis Current Visit: Yes Status: Acute Assessment and plan: Resolved Qualifiers: Leukocytosis type: unspecified Qualified Code(s): D72.829 - Elevated white blood cell count, unspecified (5) Hypokalemia Current Visit: Yes Status: Acute Assessment and plan: Improved (6) Hypothyroid Current Visit: Yes Status: Chronic Assessment and plan: Chronic, stable, continue home meds Qualifiers: Hypothyroidism type: unspecified Qualified Code(s): E03.9 - Hypothyroidism , unspecified (7) Hypertension Current Visit: Yes Status: Chronic Assessment and plan: Uncontrolled BP this a.m Resume home meds, renal function is normal now Qualifiers: Hypertension type: essential hypertension Qualified Code(s): I10 - Essential (primary) hypertension (8) Hyperlipidemia Current Visit: Yes Status: Chronic Assessment and plan: Chronic stable, continue home meds Qualifiers: Hyperlipidemia type: unspecified Qualified Code(s): E78.5 - Hyperlipidemia , unspecified (9) CAD (coronary artery disease) Current Visit: Yes Status: Chronic Assessment and plan: Chronic stable Elevated troponins are adynamic, EKG non-ischemic, ECHO with no WMA Continue home meds Qualifiers: Coronary Disease-Associated Artery/Lesion type: unspecified vessel or lesion type [place] vs. transplanted heart: unspecified whether [place] or transplanted heart Associated angina: without angina Qualified Code(s): I25.10 - Atherosclerotic heart disease of [place] coronary artery without angina pectoris - Subjective Interval history: 85 Y/O M on admission and being managed for presyncope and REMEDIOS He is seen at bedside No new complains CBC, Chem WNL, REMEDIOS resolved, troponin negative patient is yet to be seen by PT ECHO noted for LVEF 50-55%, mild LVDD, atypical septal motion, no significant valvular dysfunction, no pulm HTN, no WMA. Renal USS revealed evidence of MCGUIRE and post-void urine of 555cc Brain MRI -no acute abnormality, - Constitutional Vitals: Temp Pulse Resp BP Pulse Ox 98.3 F 78 16 148/96 98 07/01/16 08:14 07/01/16 08:14 07/01/16 08:14 07/01/16 08:14 07/01/16 08:14 General appearance: Present: cooperative, A&O X 3, pleasant, no acute distress, answers questions appropriately - Head Head exam: Present: atraumatic, normocephalic - Eye Eye exam: Present: PERRL, conjuntiva pink, sclera anicteric Pupils: Present: PERRL - Neck Neck exam general surgery: Present: supple, trachea midline. Absent: lymphadenopathy - Respiratory Respiratory exam: Present: CTAB. Absent: accessory muscle use, rales, rhonchi, wheezes - Cardiovascular Cardiovascular exam: Present: RRR, +S1, +S2. Absent: diastolic murmur, gallop, rubs, systolic murmur - GI/Abdominal GI/Abdominal exam: Present: normal bowel sounds, soft, no peritoneal signs. Absent: distended, tenderness - Additional comments: Martin draining clear urine - Extremities Exam Extremities exam: Present: warm, radial pulses palpable and symetrical. Absent : calf tenderness, cyanotic, pedal edema - Neurological Exam Neurological exam: Present: alert, CN II-XII intact, oriented X3, no focal deficits. Absent: pronater drift, facial droop, speech deficit - Skin Skin exam: Present: dry, intact Internal Medicine: Result - Labs CBC & Chem 7: 07/01/16 08:35 07/01/16 08:35 Labs: Short CBC 07/01/16 Range/Units 08:35 WBC 10.6 (4.3-11.1) K/mcL Hgb 15.2 (12.9-16.9) g/dL Hct 46.5 (37.5-50.1) % Plt Count 186 (140-400) K/mcL Neutrophils # 7.3 (1.6-8.9) K/mcL BMP 07/01/16 08:35 Sodium 144 Potassium 3.9 Chloride 105 Carbon Dioxide 31 H BUN 25 D Creatinine 1.29 H Glucose 112 H Calcium 8.6 Cardiac Enzymes 07/01/16 Range/Units 08:35 Troponin I 0.03 (0-0.03) ng/mL - ABG Interpretation ABG results: PT/INR, D-dimer PT 11.3 Seconds (9.4-12.1) 06/30/16 01:40 Consult Discharge Plan - Plan Referrals: NO,PCP [Primary Care Provider] - Prescriptions: Loratadine [Claritin] 10 mg PO DAILY #30 tablet
[2016-07-01] MEDS: Fluticasone Propionate Nasal 50 MCG/SPRAY BOTTLE NS SCH (21:05)
[2016-07-02] MEDS: *HR* Enoxaparin 40 MG/0.4 ML SYRINGE SQ SCH (05:56)
[2016-07-02 08:50] LABS: BUN/Creatinine Ratio 20 (6-26); Blood Urea Nitrogen 23 mg/dL (8-26); Carbon Dioxide 28 mEq/L (19-29); Chloride 104 mEq/L (98-109); Glucose 120 mg/dL (70-99); Osmolality,Calculated 299 (280-300); Potassium 3.9 mEq/L (3.5-4.5); Sodium 142 mEq/L (136-145); eGFR For African Americans > 60 (> 60); eGFR For Non-African Americans > 60 (> 60)
[2016-07-02] MEDS ORDERED: Furosemide 40 MG TABLET PO SCH (09:00)
--- NOTE | 2016-07-02 09:15 | Discharge Summary ---
<Enoc Santiago - Last Filed: 07/02/16 12:13> Date of Encounter: 07/02/16 Time of Encounter: 09:15 - Discharge Diagnosis (1) Dizziness Priority: Primary Status: Acute Comments: Possibly secondary to dehydration and REMEDIOS. EKG report revealed normal sinus rhythm with first degree AV block, left anterior fascicular block, LVH, and St-T change, possible lateral FL of indeterminate ae Troponin 0.03, 0.04, 0.06, 0.03 CXR revealed no acute cardiopulmonary processes. CT head revealed no acute intracranial process, diffuse cerebral volume loss and chronic small vessel ischemic changes. Brain MRI revealed cerebral atrophy, chronic small vessel ischemic changes, stable findings. No new or acute process appreciated. CT cervical spine revealed no acute abnormality of cervical spine, osteopenia with multilevel degenerative disc disease and facet arthropathy. Orthostatics was negative. Workup completed, negative. PT/OT evaluation pending, prior to discharge. (2) REMEDIOS (acute kidney injury) Priority: Primary Status: Acute Comments: Resolved. Cr 1.15, down from 1.29 yesterday. Urine output 750 + 900 mL/24 hours. REMEDIOS is post renal etiology. Bedside bladder scan was 360cc post void. Guzman in place, will be discharge with guzman. Dr. Mendiola, Urology, follow up for voiding trial (3) Leukocytosis Priority: Primary Status: Acute Comments: Resolved. WBC yesterday 10.6. Qualifiers: Leukocytosis type: unspecified Qualified Code(s): D72.829 - Elevated white blood cell count, unspecified (4) Hypokalemia Priority: Primary Status: Acute Comments: Resolved. Potassium 3.9. Continue monitoring electrolytes. (5) Hypothyroid Priority: Secondary Status: Chronic Comments: Continue home medications for chronic disease management. Qualifiers: Hypothyroidism type: unspecified Qualified Code(s): E03.9 - Hypothyroidism , unspecified (6) Hypertension Priority: Secondary Status: Chronic Comments: Uncontrolled. Bp 175/97, pulse 76. 127-175/80-97 past 24 hours. Continue home medications for chronic disease management. Amlodipine, Lisinopril, Metoprolol. Continue monitoring. Qualifiers: Hypertension type: essential hypertension Qualified Code(s): I10 - Essential (primary) hypertension (7) CAD (coronary artery disease) Priority: Secondary Status: Chronic Comments: Troponins adynamic. EKG negative for ischemia, ECHO revealed LVEF 50-55%, mild diastolic dysfunction of LV, atypical septal motion. Continue home medications for chronic disease management. Qualifiers: Coronary Disease-Associated Artery/Lesion type: unspecified vessel or lesion type [place] vs. transplanted heart: unspecified whether [place] or transplanted heart Associated angina: without angina Qualified Code(s): I25.10 - Atherosclerotic heart disease of [place] coronary artery without angina pectoris (8) Hyperlipidemia Priority: Secondary Status: Chronic Comments: Continue home medications for chronic disease management. Qualifiers: Hyperlipidemia type: unspecified Qualified Code(s): E78.5 - Hyperlipidemia , unspecified - Discharge Medications Home Medications: Alprazolam [Xanax 0.25 MG Tablet] 0.25 mg PO DAILY PRN 02/18/16 [History] Amiodarone HCl [Pacerone] 200 mg PO DAILY 02/18/16 [History] Aspirin [Lo-Dose Aspirin EC] 81 mg PO DAILY 02/18/16 [History] Atorvastatin Calcium [Lipitor] 80 mg PO HS 02/18/16 [History] Finasteride [Proscar] 5 mg PO DAILY 02/18/16 [History] Furosemide [Lasix] 40 mg PO DAILY 02/18/16 [History] Levothyroxine Sodium [Levoxyl] 50 mcg PO QAM 02/18/16 [History] Lisinopril [Zestril] 40 mg PO DAILY 02/18/16 [History] Nitroglycerin [Nitrostat] 0.4 mg SL Q5M PRN 02/18/16 [History] Oxybutynin Chloride [Ditropan Xl] 10 mg PO HS 02/18/16 [History] Potassium Chloride [Klor-Con Sprinkle] 10 meq PO TID 02/18/16 [History] TraMADol [Ultram] 50 mg PO TID 02/18/16 [History] Cholecalciferol (Vitamin D3) [Vitamin D3] 2,000 unit PO DAILY 06/29/16 [History] Galantamine HBr [Razadyne] 4 mg PO QAM 06/29/16 [History] Isosorbide MONOnitrate (24 HR) [Imdur] 60 mg PO BID 06/29/16 [History] Vitamin E (Dl,Tocopheryl Acet) [Vitamin E] 400 unit PO DAILY 06/29/16 [History] Allergies/Adverse Reactions: Allergies acetaminophen [From Percocet] Adverse Reaction (Verified 06/29/16 11:29) Hallucinating Oxycodone [From Percocet] Adverse Reaction (Verified 06/29/16 11:29) Hallucinating Procedures/tests Complete & Pending: Procedures Performed prior 72 hours Category Date Time Status Retroperitoneal Ultrasound - Complete [US Exams 06/29/16 20:30 Draft retroperitoneal comp] [US] Routine MR head/brain wo con [MR] Stat MRI 06/29/16 17:04 Completed EV echocardiogram Routine Y 06/30/16 17:07 Completed Date of admission: 06/29/16 15:01 Primary care physician: PCP NO Consults: 06/29/16 15:51 Consult to Char Conveyor Tender [CONS] Routine Reason for SW Consult: lives at home alone, fell today 07/01/16 11:18 Consult to Occupational Therapy [CONS] Routine Comment: Evaluate, develop and implement POC Consult to Physical Therapy [CONS] Routine Comment: Evaluate, develop and implement POC Discharging clinician: Davon Graham (Enoc Santiago) Anticipated date of discharge: 07/02/16 - Patient Status Disposition: Home, Self-Care Condition: Good Functional capacity at discharge: uses cane/walker Overall status at discharge: patient is progressing back to baseline - Discharge Instructions Follow Up With: ROYCE,PCP [Primary Care Provider] - Josue Mendiola MD [Partnered Physician] - 07/09/16 9:30 am Forms: ED Satisfaction Letter Additional Instructions: Follow up with Dr. Mendiola, Urology, regarding your urinary retention and guzman. Follow up with your Primary care physician withint 7-10 days regarding this hospital stay. - Diet and Activity Activity: ambulate only with your walker Diet: low fat, low cholesterol, low salt diet Interval History: Patient reports doing well this morning, no new complaints. Denies fevers, chills, sweats, changes in vision or hearing, headaches, dizziness, nausea, vomiting, chest pain, shortness of breath, abdominal pain, changes in bowels, changes in urination, dysuria, flank pain, hematuria, weakness, or loss of sensation. Pending PT evaluation prior to possible discharge. Hospital course: Mr. 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 Patient reports that at about 0830am this morning he woke up and was doing his normal morning routine. He stood up from the commode, turned around to brush his teeth, and developed some dizziness further explained as the room spinning before falling backwards into his tub. Patient reported some bilateral lower extremity weakness when episode occurred and initially wasn't able to get out of the tub himself. Patient reports he did not hit his head and was conscious/aware throughout entire episode. Patient eventually regained his strength and crawled out of the tub to call his daughter who lives in the same apartment complex before EMS was called. Dizziness resolved within a couple seconds. Has had several episodes of similar dizziness without falls in the past week. Patient takes a daily baby aspirin, no other blood thinners. Family members report the patient had previous low blood sugars and dehydration in the past. EKG report revealed normal sinus rhythm with first degree AV block, left anterior fascicular block, LVH and st-t change, possible lateral FL or indeterminate age. Troponins were 0.03, 0.04,0.06,0.03 CXR revealed no acute cardiopulomonary processes. CT head revealed no acute intracranial process, diffuse cerebral volume loss and chronic small vessel ischemic changes. Brain MRI revealed cerebral atrophy, chronic small vessel ischemic changes, stable findings. No new or acute process appreciated. CT cervical spine revealed no acute abnormality of cervical spine, osteopenia with multilevel degenerative disc disease and facet arthropathy. Orthostatics was negative. Patients labs revealed leukocytosis, acute kidney injury with Cr of 1.70, and hypokalemia. Bedside post void bladder ultrasound revealed 360cc of urine. Kidney function continued improving (Cr 1.15) following guzman placement. evaluated patient and recommended outpatient follow up. - Time Spent with Patient Total time spent providing and/or coordinating discharge services: - Constitutional Vitals: Temp Pulse Resp BP Pulse Ox 97.8 F 76 16 175/97 97 07/02/16 07:18 07/02/16 07:18 07/02/16 07:18 07/02/16 07:18 07/02/16 07:18 General appearance: Present: cooperative, A&O X 3, pleasant, no acute distress, answers questions appropriately - Head Head exam: Present: atraumatic, normal inspection, normocephalic - Eye Eye exam: Present: EOMI, normal appearance, PERRL - ENT ENT exam: Present: mucous membranes moist, normal exam, normal external ear exam , normal oropharynx - Neck Neck exam general surgery: Present: full ROM, normal inspection, supple, trachea midline. Absent: tenderness - Respiratory Respiratory exam: Present: CTAB. Absent: rales, rhonchi, wheezes - Cardiovascular Cardiovascular exam: Present: RRR, +S1, +S2. Absent: diastolic murmur, JVD, systolic murmur - GI/Abdominal GI/Abdominal exam: Present: normal bowel sounds, soft. Absent: distended, guarding, rebound, tenderness - Extremities Exam Extremities exam: Present: full ROM, normal inspection, warm. Absent: pedal edema, tenderness - Neurological Exam Neurological exam: Present: alert, CN II-XII intact, oriented X3, no focal deficits, strengths equal and symetr throughout. Absent: motor sensory deficit , facial droop, speech deficit - Psychiatric Psychiatric exam: Present: normal affect, normal mood - Skin Skin exam: Present: dry, intact, normal color, warm. Absent: diaphoretic, erythema, pallor <Davon Graham T - Last Filed: 07/02/16 14:33> - Discharge Diagnosis (1) REMEDIOS (acute kidney injury) Status: Resolved (2) Dizziness Status: Resolved (3) DVT prophylaxis Status: Acute (4) Leukocytosis Status: Resolved Qualifiers: Leukocytosis type: unspecified Qualified Code(s): D72.829 - Elevated white blood cell count, unspecified (5) Hypokalemia Status: Resolved (6) Hypothyroid Status: Chronic Qualifiers: Hypothyroidism type: unspecified Qualified Code(s): E03.9 - Hypothyroidism , unspecified (7) Hypertension Status: Chronic Qualifiers: Hypertension type: essential hypertension Qualified Code(s): I10 - Essential (primary) hypertension (8) Hyperlipidemia Status: Chronic Qualifiers: Hyperlipidemia type: unspecified Qualified Code(s): E78.5 - Hyperlipidemia , unspecified (9) CAD (coronary artery disease) Status: Chronic Qualifiers: Coronary Disease-Associated Artery/Lesion type: unspecified vessel or lesion type [place] vs. 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 Procedures/tests Complete & Pending: Procedures Performed prior 72 hours Category Date Time Status Retroperitoneal Ultrasound - Complete [US Exams 06/29/16 20:30 Draft retroperitoneal comp] [US] Routine MR head/brain wo con [MR] Stat MRI 06/29/16 17:04 Completed EV echocardiogram Routine Y 06/30/16 17:07 Completed Date of admission: 06/29/16 15:01 Primary care physician: PCP NO Consults: 06/29/16 15:51 Consult to Char Conveyor Tender [CONS] Routine Reason for SW Consult: lives at home alone, fell today 07/01/16 11:18 Consult to Occupational Therapy [CONS] Routine Comment: Evaluate, develop and implement POC Consult to Physical Therapy [CONS] Routine Comment: Evaluate, develop and implement POC Hospital course: Mr. Ralph is a 85 year old male - Time Spent with Patient Total time spent providing and/or coordinating discharge services: - Constitutional Vitals: Temp Pulse Resp BP Pulse Ox 97.7 F 77 16 108/67 96 07/02/16 10:40 07/02/16 10:40 07/02/16 10:40 07/02/16 10:40 07/02/16 10:40 - Attending Attestation patient seen independently, plan of care discussed with resident, whose documentation above reflect the plan of care for today Admitted for management of Presyncope, REMEDIOS (post-renal ) from [place]CG[place], Leukocytosis from dehydration and dizziness His symptoms have resolved His REMEDIOS has resolved after placement of Urethral Guzman catheter He is seen today , in no distress Discharge home on his home meds, his renal function remains stable PT/OT recommends nursing, PT/OT/neuropsychiatric aide Discharge with same Rest of details as in resident's documentation
[2016-07-02] MEDS: Cholecalciferol (D-3) 1,000 UNIT TABLET PO SCH (09:37)
[2016-07-02] MEDS: Aspirin Enteric Coated 81 MG Tablet PO SCH (09:37)
[2016-07-02] MEDS: Finasteride 5 MG TABLET PO SCH (09:38)
[2016-07-02] MEDS: amLODIPine 5 MG TABLET PO SCH (09:38)
[2016-07-02] MEDS: Isosorbide MONOnitrate (24 HR) 60 MG TAB.ER.24H PO SCH (09:38)
[2016-07-02] MEDS: *HR* Amiodarone 200 MG TABLET PO SCH (09:38)
[2016-07-02] MEDS: Loratadine 10 MG TABLET PO SCH (09:38)
[2016-07-02] MEDS: Azelastine 0.1% Nasal Spray 30 ML BOTTLE NS SCH (09:38)
[2016-07-02 10:40] VITALS: BP 108/67
--- NOTE | 2016-07-02 14:20 | Physician Discharge Referral ---
Home Health/Hosp Referral Info Transfer to: Home Health Attending Provider: Gladys Provider in Charge Post Discharge: PCP - Diagnosis (1) REMEDIOS (acute kidney injury) Priority: Primary Status: Resolved (2) Dizziness Priority: Primary Status: Resolved (3) DVT prophylaxis Priority: Primary Status: Acute (4) Leukocytosis Priority: Primary Status: Resolved (5) Hypokalemia Priority: Primary Status: Resolved (6) Hypothyroid Priority: Secondary Status: Chronic (7) Hypertension Priority: Secondary Status: Chronic (8) Hyperlipidemia Priority: Secondary Status: Chronic (9) CAD (coronary artery disease) Priority: Secondary Status: Chronic (10) Bladder outlet obstruction Priority: Secondary Status: Chronic - Respiratory Orders Smoking Cessation: Smoking cessation has been advised. For more information, call the [employer] Tobacco Quit Line at 6-684-JBQW-NOW. - Diet/Nutrition Diet/Nutrition Orders: Cardiac - Activity Activity Orders: Up ad mannie - Services Needed Following services are medically necessary services: Nursing, Home Health Aide, Physical Therapy, Occupational Therapy - Transfer Medications Home Medications: Alprazolam [Xanax 0.25 MG Tablet] 0.25 mg PO DAILY PRN 02/18/16 [History] Amiodarone HCl [Pacerone] 200 mg PO DAILY 02/18/16 [History] Aspirin [Lo-Dose Aspirin EC] 81 mg PO DAILY 02/18/16 [History] Atorvastatin Calcium [Lipitor] 80 mg PO HS 02/18/16 [History] Finasteride [Proscar] 5 mg PO DAILY 02/18/16 [History] Furosemide [Lasix] 40 mg PO DAILY 02/18/16 [History] Levothyroxine Sodium [Levoxyl] 50 mcg PO QAM 02/18/16 [History] Lisinopril [Zestril] 40 mg PO DAILY 02/18/16 [History] Nitroglycerin [Nitrostat] 0.4 mg SL Q5M PRN 02/18/16 [History] Oxybutynin Chloride [Ditropan Xl] 10 mg PO HS 02/18/16 [History] Potassium Chloride [Klor-Con Sprinkle] 10 meq PO TID 02/18/16 [History] TraMADol [Ultram] 50 mg PO TID 02/18/16 [History] Cholecalciferol (Vitamin D3) [Vitamin D3] 2,000 unit PO DAILY 06/29/16 [History] Galantamine HBr [Razadyne] 4 mg PO QAM 06/29/16 [History] Isosorbide MONOnitrate (24 HR) [Imdur] 60 mg PO BID 06/29/16 [History] Vitamin E (Dl,Tocopheryl Acet) [Vitamin E] 400 unit PO DAILY 06/29/16 [History] Allergies/Adverse Reactions: Allergies acetaminophen [From Percocet] Adverse Reaction (Verified 06/29/16 11:29) Hallucinating Oxycodone [From Percocet] Adverse Reaction (Verified 06/29/16 11:29) Hallucinating Certification: Further, I certify that my clinical findings support that this patient is homebound (i.e. absences from home require considerable and taxing effort and are for medical reasons or protestant services or infrequently or short duration when for other reasons) because: Homebound Reason: Patient requires assistance of a person or device to safely leave home Attestation: My signature below is to certify that this patient is under my care and that I, or nurse practitioner, or a physician's stylist assistant working with me, has a face-to -face encounter with this patient.
== END 2016-07-02 17:00 | disposition home health service (06) ==
LOC: 3BNU 11:18 → EMEROO 11:18 → SUATTDRO 15:01 → 3BNU 15:27
PROVIDERS: ADMIT Registered Nurse; ATTEND Internal Medicine

== ENCOUNTER 2016-09-01 08:37 | Inpatient (IN) ==
--- NOTE | 2016-09-01 08:46 | Emergency Department Note ---
Disposition Clinical Impression: Dizziness, Recurrent falls, Traumatic ecchymosis of left knee Disposition: Admitted As Inpatient Condition: Good General Adult HPI - General Chief complaint: ED General Medical Stated complaint: HTN Time Seen by Provider: 09/01/16 08:39 Source: patient, EMS Limitations: no limitations - History of Present Illness Pain Scale: 0 - Related Data Home Medications Medication Instructions Recorded Confirmed ALPRAZolam [Xanax 0.25 MG Tablet] 0.25 mg PO DAILY PRN 02/18/16 09/01/16 Amiodarone HCl [Pacerone] 200 mg PO DAILY 02/18/16 09/01/16 Aspirin [Lo-Dose Aspirin EC] 81 mg PO DAILY 02/18/16 09/01/16 Atorvastatin Calcium [Lipitor] 80 mg PO HS 02/18/16 09/01/16 Finasteride [Proscar] 5 mg PO DAILY 02/18/16 09/01/16 Furosemide [Lasix] 40 mg PO DAILY 02/18/16 09/01/16 Levothyroxine Sodium [Levoxyl] 50 mcg PO QAM 02/18/16 09/01/16 Lisinopril [Zestril] 40 mg PO DAILY 02/18/16 09/01/16 Nitroglycerin [Nitrostat] 0.4 mg SL Q5M PRN 02/18/16 09/01/16 Oxybutynin Chloride [Ditropan Xl] 10 mg PO HS 02/18/16 09/01/16 Potassium Chloride [Klor-Con 20 meq PO BID 02/18/16 09/01/16 Sprinkle] traMADol [Ultram] 50 mg PO TID 02/18/16 09/01/16 Cholecalciferol (Vitamin D3) 2,000 unit PO DAILY 06/29/16 09/01/16 [Vitamin D3] Isosorbide MONOnitrate (24 HR) 60 mg PO BID 06/29/16 09/01/16 [Imdur] Galantamine HBr [Razadyne ER] 24 mg PO DAILY 09/01/16 09/01/16 Loratadine [Allergy Relief] 10 mg PO DAILY 09/01/16 09/01/16 Allergies Allergy/AdvReac Type Severity Reaction Status Date / Time acetaminophen [From Percocet] AdvReac Hallucinati Verified 06/29/16 11:29 ng Oxycodone [From Percocet] AdvReac Hallucinati Verified 06/29/16 11:29 ng Past Medical History - Past Medical History Medical history: Reports: coronary artery disease, hyperlipidemia, hypertension Surgical history: Reports: coronary bypass (CABG) (1979) Psychiatric history: Reports: no psych history - Social History Smoking Status: Never smoker Smokeless Tobacco Status: No Alcohol use: Reports: none Drug use: Reports: none Physical Exam - General Limitations: no limitations General appearance: alert Course Vital Signs Temperature 97.7 F 09/01/16 08:39 Pulse Rate 81 09/01/16 08:39 Respiratory Rate 18 09/01/16 08:39 Blood Pressure 212/116 09/01/16 08:39 O2 Sat by Pulse Oximetry 97 09/01/16 08:39 Temperature 97.6 F 09/01/16 15:43 Pulse Rate 71 09/01/16 15:43 Respiratory Rate 16 09/01/16 15:43 Blood Pressure 134/72 09/01/16 15:43 O2 Sat by Pulse Oximetry 96 09/01/16 15:57 Oxygen Delivery Oxygen Delivery Room Air Medical Decision Making - Lab Data Result diagrams: 09/01/16 08:56 09/01/16 08:56 Lab Results 09/01/16 09/01/16 09/01/16 Range/Units 08:56 08:56 08:56 WBC 9.8 (4.3-11.1) K/mcL RBC 3.93 L (4.19-5.50) M/mcL Hgb 13.0 (12.9-16.9) g/dL Hct 39.6 (37.5-50.1) % MCV 100.8 H (83.0-100.0) fL MCH 33.1 (28.0-33.3) pg MCHC 32.8 (31.6-35.5) g/dL RDW 14.0 (11.5-14.5) % Plt Count 174 (140-400) K/mcL MPV 11.0 (9.4-12.4) fL Immature Gran % 0.2 (0-4) % Seg Neutrophils % 67.4 % Lymphocytes % 19.0 % Monocytes % 9.7 % Eosinophils % 3.1 % Basophils % 0.6 % Neutrophils # 6.6 (1.6-8.9) K/mcL Lymphocytes # 1.9 (0.6-4.6) K/mcL Monocytes # 1.0 (0.0-1.3) K/mcL Eosinophils # 0.3 (0.0-0.6) K/mcL Basophils # 0.1 (0.0-0.2) K/mcL Immature Plt Fraction 7.5 H (1.1-6.1) % Sodium 141 (136-145) mEq/L Potassium 3.7 (3.5-4.5) mEq/L Chloride 100 (98-109) mEq/L Carbon Dioxide 31 H (19-29) mEq/L BUN 24 (8-26) mg/dL Creatinine 1.21 (0.72-1.25) mg/dL Est GFR ( Amer) > 60 (> 60) Est GFR (Non-Af Amer) 57 L (> 60) BUN/Creatinine Ratio 20 (6-26) Glucose 120 H (70-99) mg/dL Calculated Osmolality 297 (280-300) Calcium 9.0 (8.6-10.8) mg/dL Troponin I 0.02 (0-0.03) ng/mL Urine Color (Yellow) Urine Clarity (Clear) Urine pH (5.0-8.0) pH Units Ur Specific Polo (1.010-1.025) Urine Protein (Neg-Trace) mg/dL Urine Glucose (UA) (Normal) mg/dL Urine Ketones (Negative) mg/dL Urine Blood (Negative) Urine Nitrite (Negative) Urine Bilirubin (Negative) Urine Urobilinogen (Normal) mg/dL Ur Leukocyte Esterase (Negative) Urine Microscopic RBC (0-3) per hpf Urine Microscopic WBC (0-3) per hpf Ur Squamous Epith Cells (None-Few) per lpf Urine Bacteria (None-Few) per hpf Hyaline Casts (None-Few) per lpf 09/01/16 Range/Units 10:10 WBC (4.3-11.1) K/mcL RBC (4.19-5.50) M/mcL Hgb (12.9-16.9) g/dL Hct (37.5-50.1) % MCV (83.0-100.0) fL MCH (28.0-33.3) pg MCHC (31.6-35.5) g/dL RDW (11.5-14.5) % Plt Count (140-400) K/mcL MPV (9.4-12.4) fL Immature Gran % (0-4) % Seg Neutrophils % % Lymphocytes % % Monocytes % % Eosinophils % % Basophils % % Neutrophils # (1.6-8.9) K/mcL Lymphocytes # (0.6-4.6) K/mcL Monocytes # (0.0-1.3) K/mcL Eosinophils # (0.0-0.6) K/mcL Basophils # (0.0-0.2) K/mcL Immature Plt Fraction (1.1-6.1) % Sodium (136-145) mEq/L Potassium (3.5-4.5) mEq/L Chloride (98-109) mEq/L Carbon Dioxide (19-29) mEq/L BUN (8-26) mg/dL Creatinine (0.72-1.25) mg/dL Est GFR ( Amer) (> 60) Est GFR (Non-Af Amer) (> 60) BUN/Creatinine Ratio (6-26) Glucose (70-99) mg/dL Calculated Osmolality (280-300) Calcium (8.6-10.8) mg/dL Troponin I (0-0.03) ng/mL Urine Color Yellow (Yellow) Urine Clarity Cloudy A (Clear) Urine pH 7.0 (5.0-8.0) pH Units Ur Specific Polo 1.017 (1.010-1.025) Urine Protein Negative (Neg-Trace) mg/dL Urine Glucose (UA) Normal (Normal) mg/dL Urine Ketones Negative (Negative) mg/dL Urine Blood Negative (Negative) Urine Nitrite Positive A (Negative) Urine Bilirubin Negative (Negative) Urine Urobilinogen Normal (Normal) mg/dL Ur Leukocyte Esterase Large H (Negative) Urine Microscopic RBC 5-15 H (0-3) per hpf Urine Microscopic WBC 50-100 H (0-3) per hpf Ur Squamous Epith Cells Few (None-Few) per lpf Urine Bacteria Moderate H (None-Few) per hpf Hyaline Casts None Seen (None-Few) per lpf Attestation Statement - Attestation Attestation: I examined this patient and my medical decision-making was reviewed with the CONCESSION SUPERVISOR/PA/Advanced Practice Nurse/Resident Physician. I agree with the documented findings, disposition and treatment plan as described except to the extent set forth below. [id number] time provided Patient presents feeling lightheaded, weak, dizzy. He fell. Knee is ecchymotic. Blood pressure markedly elevated. He is pleasant and appears in no acute distress. Patient seen and evaluated in conjunction with the resident physician Dr. Grewal
--- NOTE | 2016-09-01 08:52 | Emergency Department Note ---
Disposition Clinical Impression: Dizziness, Recurrent falls Traumatic ecchymosis of left knee Qualifiers: Encounter type: initial encounter Qualified Code(s): S80.02XA - Contusion of left knee, initial encounter Disposition: Admitted As Inpatient Condition: Good Referrals: Haroon Liriano MD [Primary Care Provider] - Forms: ED Satisfaction Letter, Work/School Release Dizziness HPI - General Chief Complaint: ED General Medical Stated Complaint: HTN Time Seen by Provider: 09/01/16 08:39 Source: patient, EMS Limitations: no limitations Nursing Notes Reviewed: Yes Vital Signs Reviewed: Yes - History of Present Illness HPI Narrative: 86-year-old male with a history of coronary artery disease status post bypass in 1979 presents to the emergency department with a chief complaint of intermittent dizziness and recent fall. He lives at home alone in an apartment but his son checks on him. Over the last week or so he has had intermittent dizziness particularly when he gets up and walks around. He reports that yesterday he stumbled and fell onto his left knee and it became very bruised. He states he hit the side of his head on the left but had no loss of consciousness and was able to get up. During this time he denies any chest pain or shortness of breath. Denies any recent illness, fevers or chills. Denies any abdominal pain, nausea or vomiting. Denies any numbness or weakness in the extremities. - Related Data Home Medications Medication Instructions Recorded Confirmed ALPRAZolam [Xanax 0.25 MG Tablet] 0.25 mg PO DAILY PRN 02/18/16 06/29/16 Amiodarone HCl [Pacerone] 200 mg PO DAILY 02/18/16 06/29/16 Aspirin [Lo-Dose Aspirin EC] 81 mg PO DAILY 02/18/16 06/29/16 Atorvastatin Calcium [Lipitor] 80 mg PO HS 02/18/16 06/29/16 Finasteride [Proscar] 5 mg PO DAILY 02/18/16 06/29/16 Furosemide [Lasix] 40 mg PO DAILY 02/18/16 06/29/16 Levothyroxine Sodium [Levoxyl] 50 mcg PO QAM 02/18/16 06/29/16 Lisinopril [Zestril] 40 mg PO DAILY 02/18/16 06/29/16 Nitroglycerin [Nitrostat] 0.4 mg SL Q5M PRN 02/18/16 06/29/16 Oxybutynin Chloride [Ditropan Xl] 10 mg PO HS 02/18/16 06/29/16 Potassium Chloride [Klor-Con 10 meq PO TID 02/18/16 06/29/16 Sprinkle] traMADol [Ultram] 50 mg PO TID 02/18/16 06/29/16 Cholecalciferol (Vitamin D3) 2,000 unit PO DAILY 06/29/16 06/29/16 [Vitamin D3] Galantamine HBr [Razadyne] 4 mg PO QAM 06/29/16 06/29/16 Isosorbide MONOnitrate (24 HR) 60 mg PO BID 06/29/16 06/29/16 [Imdur] Vitamin E (Dl,Tocopheryl Acet) 400 unit PO DAILY 06/29/16 06/29/16 [Vitamin E] Allergies Allergy/AdvReac Type Severity Reaction Status Date / Time acetaminophen [From Percocet] AdvReac Hallucinati Verified 06/29/16 11:29 ng Oxycodone [From Percocet] AdvReac Hallucinati Verified 06/29/16 11:29 ng All systems ED: reviewed and negative except as stated. Constitutional: Denies: fever Eyes: Denies: vision change Cardiovascular: Denies: chest pain, dyspnea on exertion Respiratory: Denies: cough Gastrointestinal: Denies: abdominal pain, nausea, vomiting Musculoskeletal: Denies: back pain, neck pain Neurological: Denies: headache, weakness, numbness Past Medical History - Past Medical History Medical history: Reports: coronary artery disease, hyperlipidemia, hypertension Surgical history: Reports: coronary bypass (CABG) (1979) Psychiatric history: Reports: no psych history - Social History Smoking Status: Never smoker Smokeless Tobacco Status: No Alcohol use: Reports: none Drug use: Reports: none Physical Exam General: Appears well, alert and oriented x 3 Cardiovascular: Regular rate and rhythm. S1, S2. No murmurs, rubs or gallops. Previous sternotomy scar Respiratory: Breath sounds clear bilaterally. No wheezing, rales or rhonchi. No resp distress Abdomen: Soft, nontender. No guarding, rebound or rigidity. Normal bowel sounds throughout. Eyes: Pupils equally round and reactive to light, extraocular muscles intact, conjunctiva clear HENT: There are some small areas of scabbing on the head but do not appear traumatic. No bruising or crepitus No oral mucosal lesions. Moist mucous membranes Neuro: Cranial nerves intact. No motor or sensory deficit. Musculoskeletal: Bilateral lower extremity edema involving the legs and shins. No calf tenderness. Left knee particularly on the medial aspect there is a large area of ecchymosis and swelling approximately 15 cm across. Skin: No other bruising or signs of injury Back/neck: No midline tenderness, no step-off or deformity. No bruising Psych: Appropriate - General Limitations: no limitations General appearance: alert Course Course Narrative: Presents to the emergency department with dizziness and recurrent falls. This is mostly positional in nature. EKG shows no acute ischemic changes. Labs including CBC, BMP, troponin are unremarkable. Chest x-ray clear. CT scan of the head shows no evidence of acute injury. We did stand the patient which required assistance and patient was off balance even standing in place. Orthostatics were unremarkable. His blood pressure was initially elevated around 210/115. This came down to 178/95 without intervention. Patient did not take any of his home medications today and I will give him his 40 mg lisinopril and Lasix. It is unclear what is causing the patient's symptoms at this time but feel it safest to admit the patient for further evaluation of his ongoing dizziness. Discussed with the on-call hospitals, Dr. Oropeza who accepts for admission. Vital Signs Temperature 97.7 F 09/01/16 08:39 Pulse Rate 81 09/01/16 08:39 Respiratory Rate 18 09/01/16 08:39 Blood Pressure 212/116 09/01/16 08:39 O2 Sat by Pulse Oximetry 97 09/01/16 08:39 Temperature 97.7 F 09/01/16 08:39 Pulse Rate 70 09/01/16 08:46 Respiratory Rate 16 09/01/16 08:46 Blood Pressure 179/98 09/01/16 09:00 O2 Sat by Pulse Oximetry 96 09/01/16 08:46 Oxygen Delivery Oxygen Delivery Room Air Dizziness - Lab Data Result diagrams: 09/01/16 08:56 09/01/16 08:56 Lab Results 09/01/16 09/01/16 09/01/16 Range/Units 08:56 08:56 08:56 WBC 9.8 (4.3-11.1) K/mcL RBC 3.93 L (4.19-5.50) M/mcL Hgb 13.0 (12.9-16.9) g/dL Hct 39.6 (37.5-50.1) % MCV 100.8 H (83.0-100.0) fL MCH 33.1 (28.0-33.3) pg MCHC 32.8 (31.6-35.5) g/dL RDW 14.0 (11.5-14.5) % Plt Count 174 (140-400) K/mcL MPV 11.0 (9.4-12.4) fL Immature Gran % 0.2 (0-4) % Seg Neutrophils % 67.4 % Lymphocytes % 19.0 % Monocytes % 9.7 % Eosinophils % 3.1 % Basophils % 0.6 % Neutrophils # 6.6 (1.6-8.9) K/mcL Lymphocytes # 1.9 (0.6-4.6) K/mcL Monocytes # 1.0 (0.0-1.3) K/mcL Eosinophils # 0.3 (0.0-0.6) K/mcL Basophils # 0.1 (0.0-0.2) K/mcL Immature Plt Fraction 7.5 H (1.1-6.1) % Sodium 141 (136-145) mEq/L Potassium 3.7 (3.5-4.5) mEq/L Chloride 100 (98-109) mEq/L Carbon Dioxide 31 H (19-29) mEq/L BUN 24 (8-26) mg/dL Creatinine 1.21 (0.72-1.25) mg/dL Est GFR ( Amer) > 60 (> 60) Est GFR (Non-Af Amer) 57 L (> 60) BUN/Creatinine Ratio 20 (6-26) Glucose 120 H (70-99) mg/dL Calculated Osmolality 297 (280-300) Calcium 9.0 (8.6-10.8) mg/dL Troponin I 0.02 (0-0.03) ng/mL - EKG Data EKG results narrative: EKG shows an irregular rhythm without definite P waves. No significant ST changes. Left axis deviation. Left bundle branch block pattern. Previous EKG on 06/29/2016 shows similar wave morphology was similar ill-defined P waves and bundle branch block pattern.
[2016-09-01 09:02] LABS: Basophils # 0.1 K/mcL (0.0-0.2); Basophils % 0.6 %; Eosinophils # 0.3 K/mcL (0.0-0.6); Eosinophils % 3.1 %; Hematocrit 39.6 % (37.5-50.1); Immature Granulocytes % 0.2 % (0-4); Immature Platelets 7.5 % (1.1-6.1); Lymphocytes # 1.9 K/mcL (0.6-4.6); Mean Corpuscular HGB Conc 32.8 g/dL (31.6-35.5); Mean Corpuscular Hemoglobin 33.1 pg (28.0-33.3); Mean Corpuscular Volume 100.8 fL (83.0-100.0); Monocytes % 9.7 %; Neutrophils # 6.6 K/mcL (1.6-8.9); Platelet Count 174 K/mcL (140-400); Red Blood Count 3.93 M/mcL (4.19-5.50); Segmented Neutrophils % 67.4 %
[2016-09-01 09:12] LABS: BUN/Creatinine Ratio 20 (6-26); Blood Urea Nitrogen 24 mg/dL (8-26); Carbon Dioxide 31 mEq/L (19-29); Chloride 100 mEq/L (98-109); Glucose 120 mg/dL (70-99); Osmolality,Calculated 297 (280-300); Potassium 3.7 mEq/L (3.5-4.5); Sodium 141 mEq/L (136-145); eGFR For African Americans > 60 (> 60); eGFR For Non-African Americans 57 (> 60)
[2016-09-01] MEDS ORDERED: Furosemide 40 MG TABLET PO ONE (10:10)
[2016-09-01] MEDS ORDERED: Lisinopril 20 MG TABLET PO SCH (10:15)
[2016-09-01 10:21] LABS: Bilirubin,Urine Negative (Negative); Blood,Urine Negative (Negative); Clarity,Urine Cloudy (Clear); Color,Urine Yellow (Yellow); Glucose,Urine (UA) Normal (Normal); Ketones,Urine Negative (Negative); Leukocyte Esterase,Urine Large (Negative); Nitrite,Urine Positive (Negative); Protein,Urine Negative (Neg-Trace); Specific Gravity,Urine 1.017 (1.010-1.025); Urobilinogen,Urine Normal (Normal)
[2016-09-01 10:23] LABS: Bacteria,Urine Moderate per hpf (None-Few); Hyaline Casts,Urine None Seen per lpf (None-Few); Squamous Epithelial Cell,Urine Few per lpf (None-Few); WBC,Urine 50-100 per hpf (0-3)
[2016-09-01] MEDS ORDERED: Naloxone 0.4 MG/ML INJ IVP PRN (10:36)
[2016-09-01] MEDS ORDERED: Ondansetron 4 MG/2 ML VIAL IVP PRN (10:36)
--- NOTE | 2016-09-01 10:39 | Internal Med History&Physical ---
Date of Encounter: 09/01/16 Time of Encounter: 11:00 Assessment and Plan (1) CVA (cerebral vascular accident) Current visit: Yes Status: Acute 86-year-old male with a history of coronary artery disease status post CABG in the 1980s and stent placement about 5-10 years ago. Presents with sudden onset vertigo that started 2 days ago which he had after he woke up from sleep. Examination does not reveal focal neurological deficits or nystagmus. Patient does have elevated blood pressure on exam. Benign labs and negative CT head. Suspicion for posterior circulation cerebral vascular accident as a cause of his vertigo. Patient be placed under observation on telemetry We will obtain an MRI of his brain without contrast to evaluate for an acute CVA. Patient is on aspirin and statin. We will continue the same. Physical therapy and occupational therapy. Meclizine when necessary. Qualifiers: CVA mechanism: unspecified Qualified Code(s): I63.9 - Cerebral infarction, unspecified (2) Hemarthrosis, left knee Current visit: Yes Status: Suspected Patient underwent knee replacement in the past. He sustained a fall due to his vertigo and injured his left knee which has become swollen and painful. Exam reveals a swollen left knee with bruising and tenderness to palpation and active and passive range of motion. Suspicion for knee effusion versus hemarthrosis. Will hold off on heparin for DVT prophylaxis. Use SCDs. Orthopedics consult for evaluation. PT and OT consults. (3) Hyperlipidemia Current visit: Yes Status: Chronic Continue statin Qualifiers: Hyperlipidemia type: unspecified Qualified Code(s): E78.5 - Hyperlipidemia , unspecified (4) CAD (coronary artery disease) Current visit: Yes Status: Chronic Status post CABG and 2 stents about 5 years ago. Patient is on aspirin and statin. Continue the same. Does not have any symptoms of angina. Stable for now. Qualifiers: Coronary Disease-Associated Artery/Lesion type: [place] artery [place] vs. transplanted heart: [place] heart Associated angina: without angina Qualified Code(s): I25.10 - Atherosclerotic heart disease of [place] coronary artery without angina pectoris (5) Vertigo Current visit: Yes Status: Acute As mentioned above under CVA (6) Hypertension Current visit: Yes Status: Chronic Will permit permissive hypertension due to suspicion of acute CVA. Continue to monitor blood pressure and adjust medications accordingly. Qualifiers: Hypertension type: essential hypertension Qualified Code(s): I10 - Essential (primary) hypertension Internal Medicine - H&P: HPI Chief complaint: Weakness and vertigo Admitted From: Emergency Dept Plans for Post Hospital Care: Home History of present illness: Mr. Ralph is a 86 year old male who has been brought to the emergency department by his son due to sudden onset vertigo over the past 2 days. At baseline, the patient lives independently at home and uses his cane and walker for ambulation. According to the son and the patient, the patient was doing well and ambulating with his walker without any problems until about 2 days ago. About 2 days ago, the patient started having dizziness when he woke up from sleep. He describes the dizziness as a sensation of room spinning around him. He denies feeling lightheaded or a sensation of passing out. He denies any nausea or vomiting associated with the vertigo. He denies any fever or chills. He denies any headache, chest pain, palpitations, shortness of breath, cough or wheezing. Denies any abdominal pain, diarrhea or constipation. As the vertigo was getting worse, the patient was brought to the emergency department by his son. The patient is accompanied by son in the emergency room also provided part of the history. The patient denies any weakness in his arms or legs. The patient also sustained a fall today due to his vertigo where he fell on his left side of the body and hit his left knee. The patient underwent a left knee replacement in the past. Currently, he reports 6/10 pain in his left knee that is worsened with movement and relieved with rest. Pain is throbbing in nature without any radiation. He also reports swelling over the left knee and bruising over the left knee. He also reports that he hit the left side of his face and sustained minor injury to his eye due to his glasses. Past Med Surg Social Fam HX - Past Medical History Medical history: coronary artery disease, hyperlipidemia, hypertension Psychiatric history: no psych history - Past Surgical History Surgical History: coronary bypass (CABG) (1979) - Social History Smoking Status: Never smoker Smokeless Tobacco Status: No Alcohol use: none Drug use: none - Family History Mother Hx Family Cardiac Disorders: No Hx Family Respiratory Disorders: No Hx Family Cancer: No Hx Family GI Disorders: Yes (stomach acid) Hx Family Endocrine Disorder: No Hx Family Neuromuscular Disorders: No Hx Family Neurologic Disorders: No Hx Family HEENT Disorders: No Hx Family Autoimmune Disorders: No Father Hx Family Cardiac Disorders: Yes (CA) Hx Family Respiratory Disorders: No Hx Family Cancer: No Hx Family GI Disorders: No Hx Family Endocrine Disorder: No Hx Family Neuromuscular Disorders: No Hx Family Neurologic Disorders: No Hx Family HEENT Disorders: No Hx Family Autoimmune Disorders: No Internal Medicine - H&P: Meds ALPRAZolam [Xanax 0.25 MG Tablet] 0.25 mg PO DAILY PRN 02/18/16 [History] Amiodarone HCl [Pacerone] 200 mg PO DAILY 02/18/16 [History] Aspirin [Lo-Dose Aspirin EC] 81 mg PO DAILY 02/18/16 [History] Atorvastatin Calcium [Lipitor] 80 mg PO HS 02/18/16 [History] Finasteride [Proscar] 5 mg PO DAILY 02/18/16 [History] Furosemide [Lasix] 40 mg PO DAILY 02/18/16 [History] Levothyroxine Sodium [Levoxyl] 50 mcg PO QAM 02/18/16 [History] Lisinopril [Zestril] 40 mg PO DAILY 02/18/16 [History] Nitroglycerin [Nitrostat] 0.4 mg SL Q5M PRN 02/18/16 [History] Oxybutynin Chloride [Ditropan Xl] 10 mg PO HS 02/18/16 [History] Potassium Chloride [Klor-Con Sprinkle] 20 meq PO BID 02/18/16 [History] traMADol [Ultram] 50 mg PO TID 02/18/16 [History] Cholecalciferol (Vitamin D3) [Vitamin D3] 2,000 unit PO DAILY 06/29/16 [History] Isosorbide MONOnitrate (24 HR) [Imdur] 60 mg PO BID 06/29/16 [History] Galantamine HBr [Razadyne ER] 24 mg PO DAILY 09/01/16 [History] Loratadine [Allergy Relief] 10 mg PO DAILY 09/01/16 [History] Allergies acetaminophen [From Percocet] Adverse Reaction (Verified 06/29/16 11:29) Hallucinating Oxycodone [From Percocet] Adverse Reaction (Verified 06/29/16 11:29) Hallucinating All Systems PM: A 10-system review of systems was performed and is negative for pertinent findings except as documented above in the HPI. Review of systems: 10 systems have been reviewed and are negative except as mentioned in the history of present illness - Constitutional Vitals: Temp Pulse Resp BP Pulse Ox 97.7 F 67 16 177/99 96 09/01/16 08:39 09/01/16 10:08 09/01/16 08:46 09/01/16 10:08 09/01/16 08:46 Exam: Gen.: Lying in bed. Mild distress. Eyes: Pupils equal, round and reactive to light. Extraocular muscles intact. Subconjunctival hemorrhage on the medial aspect of the pupil in the left eye. ENT: Moist mucous membranes. No oropharyngeal erythema or discharge. Chest: Bilateral basal crepitations present. No wheezing present. Not using accessory muscles of respiration. CVS: First and second heart sounds present. No murmurs, rubs or gallops. Abdomen: Soft, nontender, obese. Bowel sounds present. Skin: No decubitus ulcers appreciated. Bruising noted over the left knee joint. [employer]: Cranial loss to 12 grossly intact. Power 5/5 all over. No sensory deficits. No nystagmus appreciated. Psychiatric: Alert, awake and oriented to time, place and person. Lymphatic system: No lymphadenopathy appreciated Musculoskeletal: Tenderness to palpation of the left knee joint. Pain on passive and active flexion of the left knee joint. Inability to completely flex the left knee joint. Swelling in the left knee joint Internal Med - H&P Results - Labs CBC & Chem 7: 09/01/16 08:56 09/01/16 08:56 Labs: Short CBC 09/01/16 Range/Units 08:56 WBC 9.8 (4.3-11.1) K/mcL Hgb 13.0 (12.9-16.9) g/dL Hct 39.6 (37.5-50.1) % Plt Count 174 (140-400) K/mcL Neutrophils # 6.6 (1.6-8.9) K/mcL BMP 09/01/16 08:56 Sodium 141 Potassium 3.7 Chloride 100 Carbon Dioxide 31 H BUN 24 Creatinine 1.21 Glucose 120 H Calcium 9.0 Cardiac Enzymes 09/01/16 Range/Units 08:56 Troponin I 0.02 (0-0.03) ng/mL Urine 09/01/16 Range/Units 10:10 Urine Color Yellow (Yellow) Urine Clarity Cloudy A (Clear) Urine pH 7.0 (5.0-8.0) pH Units Ur Specific [place] 1.017 (1.010-1.025) Urine Protein Negative (Neg-Trace) mg/dL Urine Glucose (UA) Normal (Normal) mg/dL - EKG Data -: EKG Interpreted by Myself EKG shows normal: sinus rhythm, QRS complexes (Left anterior fascicular block present) Rate: normal - EKG Data Prior EKG available for review: yes When compared to previous EKG: there is no significant change - Impressions ITS Impressions Chest X-Ray 09/01/16 08:45 IMPRESSION: No acute abnormality. D/ / Erwin Maya MD / Erwin Maya MD Interpreting Provider: Erwin Maya MD Head CT 09/01/16 08:46 IMPRESSION: No acute intracranial abnormality. D/ / Erwin Maya MD / Erwin Maya MD Interpreting Provider: Erwin Maya MD Knee X-Ray 09/01/16 08:46 IMPRESSION: No acute fracture status post left total knee arthroplasty. Extensive prepatellar soft tissue swelling. Small knee joint effusion. D/ / 09/01/2016 09:53:57 Erwin Maya MD / marisol Interpreting Provider: Erwin Myaa MD - Diagnostic Studies Other Images Additional comments: Echo 2 months ago-50-55% ejection fraction with mild left and her diastolic dysfunction. Chest x-ray Status: image reviewed by me (Status post CABG. No acute abnormalities detected.) CT scan - head Additional comments: No acute abnormalities noted
[2016-09-02] MEDS ORDERED: Saline Nasal Spray 44 ML BOTTLE NS PRN (00:53)
[2016-09-02 03:56] LABS: Basophils # 0.1 K/mcL (0.0-0.2); Basophils % 0.5 %; Eosinophils # 0.3 K/mcL (0.0-0.6); Hematocrit 40.7 % (37.5-50.1); Hemoglobin 13.5 g/dL (12.9-16.9); Immature Granulocytes % 0.4 % (0-4); Lymphocytes # 2.2 K/mcL (0.6-4.6); Lymphocytes % 19.8 %; Mean Corpuscular HGB Conc 33.2 g/dL (31.6-35.5); Mean Corpuscular Hemoglobin 33.1 pg (28.0-33.3); Mean Corpuscular Volume 99.8 fL (83.0-100.0); Mean Platelet Volume 11.8 fL (9.4-12.4); Monocytes # 1.1 K/mcL (0.0-1.3); Monocytes % 9.7 %; Neutrophils # 7.4 K/mcL (1.6-8.9); Platelet Count 188 K/mcL (140-400); Red Blood Count 4.08 M/mcL (4.19-5.50); Red Cell Distribution Width 13.8 % (11.5-14.5); Segmented Neutrophils % 66.6 %
[2016-09-02 04:11] LABS: Albumin 3.4 g/dL (3.5-5.0); Albumin/Globulin Ratio 0.9 (1.1-2.2); Bilirubin,Total 0.7 mg/dL (0.2-1.2); Globulin 3.8 g/dL (2.4-3.5); Potassium 3.4 mEq/L (3.5-4.5); Total Protein 7.2 g/dL (6.0-8.3)
--- NOTE | 2016-09-02 06:42 | Orthopedics Progress Note ---
Date of Encounter: 09/02/16 Time of Encounter: 06:40 Subjective Interval history: patient seen today resting comfortably. History of a fall with left knee swellingand ecchymosis.The patientwith a history of left total knee r Physical exam Left knee Well-healed incision Small abrasion anterior medial Significant ecchymosis and swellin Tenderness MCL origin xx-rays reviewed no acute fracture components well aligned and well fFixed plan nonoperative knee immobilizer and weightbearing as tolerated follow up as outpatient Objective Vital signs: Vital Signs Temp Pulse Resp BP Pulse Ox 09/02/16 03:36 98.1 F 73 15 179/70 96 09/01/16 23:56 98.4 F 72 15 158/91 95 09/01/16 20:15 98.1 F 73 15 152/78 93 09/01/16 15:57 96 09/01/16 15:43 97.6 F 71 16 134/72 96 09/01/16 13:10 97.7 F 78 16 188/96 97 Intake and Output 09/01/16 09/01/16 09/02/16 15:59 23:59 07:59 Intake Total 200 / 200 Output Total 700 / 700 300 / 300 Balance -500 / -500 -300 / -300 Intake: Oral 200 / 200 Output: Urine 700 / 700 300 / 300 Other: Meal Dinner Percent of Meal Consumed 75% Weight 191 kg 88.2 kg Patient Weight 09/02/16 23:59 Weight 88.2 kg - Labs CBC & BMP: 09/02/16 03:34 09/02/16 03:34 Labs: Abnormal lab results RBC 4.08 M/mcL (4.19-5.50) L 09/02/16 03:34 Immature Plt Fraction 7.5 % (1.1-6.1) H 09/01/16 08:56 Potassium 3.4 mEq/L (3.5-4.5) L 09/02/16 03:34 Creatinine 1.43 mg/dL (0.72-1.25) H 09/02/16 03:34 Est GFR ( Amer) 57 (> 60) L 09/02/16 03:34 Est GFR (Non-Af Amer) 47 (> 60) L 09/02/16 03:34 Glucose 115 mg/dL (70-99) H 09/02/16 03:34 Albumin 3.4 g/dL (3.5-5.0) L 09/02/16 03:34 Globulin 3.8 g/dL (2.4-3.5) H 09/02/16 03:34 Albumin/Globulin Ratio 0.9 (1.1-2.2) L 09/02/16 03:34 Urine Clarity Cloudy (Clear) A 09/01/16 10:10 Urine Nitrite Positive (Negative) A 09/01/16 10:10 Ur Leukocyte Esterase Large (Negative) H 09/01/16 10:10 Urine Microscopic RBC 5-15 per hpf (0-3) H 09/01/16 10:10 Urine Microscopic WBC 50-100 per hpf (0-3) H 09/01/16 10:10 Urine Bacteria Moderate per hpf (None-Few) H 09/01/16 10:10 Consult Discharge Plan - Plan Referrals: Haroon Liriano MD [Primary Care Provider] -
[2016-09-02] MEDS: Finasteride 5 MG TABLET PO SCH (08:53)
[2016-09-02] MEDS: *HR* Amiodarone 200 MG TABLET PO SCH (08:55)
[2016-09-02] MEDS: Aspirin Enteric Coated 81 MG Tablet PO SCH (08:55)
[2016-09-02] MEDS: Isosorbide MONOnitrate (24 HR) 60 MG TAB.ER.24H PO SCH ×2 (08:55→22:09)
[2016-09-02] MEDS: Loratadine 10 MG TABLET PO SCH (08:56)
--- NOTE | 2016-09-02 12:27 | Internal Med Progress Note ---
Date of Encounter: 09/02/16 Time of Encounter: 09:00 - Assessment and plan (1) Vertigo Current Visit: Yes Status: Acute Assessment and plan: Unclear causation at this time. Acute CVA ruled out. Blood pressure now improved with the resumption of his home medications. He is eating well. He does have a urinary tract infection which could be contributing. Chest x-ray negative. Head CT negative. Knee x-ray revealing soft tissue swelling with a small joint effusion. MRI negative for acute processes are revealing tiny old infarcts. Patient continues to have symptoms, meclizine 3 times a day. OT and PT are pending. Fall precautions. ITS Impressions Chest X-Ray 09/01/16 08:45 IMPRESSION: No acute abnormality. D/ / Erwin Maya MD / Erwin Maya MD Interpreting Provider: Erwin Maya MD Head CT 09/01/16 08:46 IMPRESSION: No acute intracranial abnormality. D/ / Erwin Maya MD / Erwin Maya MD Interpreting Provider: Erwin Maya MD Knee X-Ray 09/01/16 08:46 IMPRESSION: No acute fracture status post left total knee arthroplasty. Extensive prepatellar soft tissue swelling. Small knee joint effusion. D/ / 09/01/2016 09:53:57 Erwin Maya MD / marisol Interpreting Provider: Erwin Maya MD Brain MRI 09/01/16 11:22 IMPRESSION: Stable exam. No acute intracranial abnormality. 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 Mild to moderate parenchymal volume loss. Mild chronic microvascular disease. D/ / Fred Vee MD / Fred Vee MD Interpreting Provider: Fred Vee MD (2) Dizziness Current Visit: No Status: Acute (3) UTI (urinary tract infection) Current Visit: Yes Status: Acute Assessment and plan: Urinalysis with positive nitrites and large leuks, started on ceftriaxone. Culture pending. (4) Hemarthrosis, left knee Current Visit: Yes Status: Acute Assessment and plan: Plain films without acute fractures and revealing soft tissue swelling with small joint effusion. Edema and ecchymosis have improved since yesterday, remains with considerable size and tenderness. Knee immobilizer per orthopedic recommendations. Orthopedics have recommended weightbearing as tolerated and follow up outpatient. OT and PT consultations are pending. ITS Impressions Knee X-Ray 09/01/16 08:46 IMPRESSION: No acute fracture status post left total knee arthroplasty. Extensive prepatellar soft tissue swelling. Small knee joint effusion. D/ / 09/01/2016 09:53:57 Erwin Maya MD / marisol Interpreting Provider: Erwin Maya MD (5) CVA (cerebral vascular accident) Current Visit: Yes Status: Ruled-out Assessment and plan: Ruled out. MRI negative for acute processes. (6) Recurrent falls Current Visit: Yes Status: Acute Assessment and plan: OT/PT pending. (7) CKD (chronic kidney disease) stage 3, GFR 30-59 ml/min Current Visit: Yes Status: Chronic Assessment and plan: Currently at the low end of his normal, will monitor (8) DVT prophylaxis Current Visit: No Status: Acute Assessment and plan: SCD's ordered. Pharmacologic prophylaxis contraindicated secondary to knee injury (9) Hypokalemia Current Visit: No Status: Acute Assessment and plan: Very mild at 3.4, will trend (10) Hypothyroid Current Visit: No Status: Chronic Assessment and plan: TSH checked in June, normal (11) Hypertension Current Visit: Yes Status: Chronic Assessment and plan: Uncontrolled upon admission, now controlled that his home medications have been resumed. Acute CVA has been ruled out, no indication for permissive hypertension at this time, home medications have been resumed except for his lisinopril, monitoring renal functioning. Qualifiers: Hypertension type: essential hypertension Qualified Code(s): I10 - Essential (primary) hypertension (12) CAD (coronary artery disease) Current Visit: Yes Status: Chronic Assessment and plan: Patient denies chest pain or shortness of breath Qualifiers: Coronary Disease-Associated Artery/Lesion type: [place] artery [place] vs. transplanted heart: [place] heart Associated angina: without angina Qualified Code(s): I25.10 - Atherosclerotic heart disease of [place] coronary artery without angina pectoris - Subjective Interval history: Patient seen and examined. On examination, patient sitting upright in bed. He states he is not doing well and states that he continues to feel very dizzy. He states his left knee is not bothering him a whole lot right now that his main complaint is that he is dizzy. - Constitutional Vitals: Temp Pulse Resp BP Pulse Ox 98.1 F 72 16 112/67 93 09/02/16 10:57 09/02/16 10:57 09/02/16 10:57 09/02/16 10:57 09/02/16 10:57 General appearance: Present: A&O X 3, pleasant, no acute distress, answers questions appropriately - Head Head exam: Present: atraumatic, normocephalic - Eye Eye exam: Present: PERRL, conjuntiva pink, sclera anicteric Pupils: Present: PERRL - Neck Neck exam general surgery: Present: supple, trachea midline. Absent: lymphadenopathy - Respiratory Respiratory exam: Present: CTAB. Absent: accessory muscle use, rales, respiratory distress, rhonchi, wheezes - Cardiovascular Cardiovascular exam: Present: RRR, +S1, +S2. Absent: diastolic murmur, gallop, rubs, systolic murmur - GI/Abdominal GI/Abdominal exam: Present: normal bowel sounds, soft, no peritoneal signs. Absent: distended, tenderness - Extremities Exam Extremities exam: Present: pedal edema, warm, radial pulses palpable and symetrical. Absent: calf tenderness, cyanotic - Expanded Lower Extremities Exam Knee exam: Present: ecchymosis, swelling, tenderness Lower Leg exam: Present: ecchymosis, swelling, tenderness Ankle exam: Present: ecchymosis, swelling, tenderness Foot/Toe exam: Present: swelling Neuro vascular tendon exam: Present: no vascular compromise Gait: Present: not tested/not observed - Neurological Exam Neurological exam: Present: alert, CN II-XII intact, oriented X3, no focal deficits, strengths equal and symetr throughout. Absent: pronater drift, facial droop, speech deficit - Skin Skin exam: Present: dry, intact, pallor, warm Internal Medicine: Result - Labs CBC & Chem 7: 09/02/16 03:34 09/02/16 03:34 Labs: Short CBC 09/02/16 Range/Units 03:34 WBC 11.1 (4.3-11.1) K/mcL Hgb 13.5 (12.9-16.9) g/dL Hct 40.7 (37.5-50.1) % Plt Count 188 (140-400) K/mcL Neutrophils # 7.4 (1.6-8.9) K/mcL BMP 09/02/16 03:34 Sodium 141 Potassium 3.4 L Chloride 101 Carbon Dioxide 29 BUN 23 Creatinine 1.43 H Glucose 115 H Calcium 9.0 Liver Function 09/02/16 Range/Units 03:34 Total Bilirubin 0.7 (0.2-1.2) mg/dL AST 24 (5-34) Units/L ALT 19 (0-55) Units/L Alkaline Phosphatase 54 (38-126) Units/L Albumin 3.4 L (3.5-5.0) g/dL Consult Discharge Plan - Plan Referrals: Haroon Liriano MD [Primary Care Provider] -
[2016-09-02] MEDS ORDERED: Ondansetron 4 MG/2 ML VIAL IVP PRN (12:37)
[2016-09-02] MEDS: ALPRAZolam 0.25 MG TABLET PO PRN (14:17)
--- NOTE | 2016-09-02 20:13 | Electrocardiograph Report ---
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
[2016-09-03 06:14] LABS: BUN/Creatinine Ratio 21 (6-26); Blood Urea Nitrogen 26 mg/dL (8-26); Calcium 9.1 mg/dL (8.6-10.8); Carbon Dioxide 27 mEq/L (19-29); Chloride 103 mEq/L (98-109); Glucose 118 mg/dL (70-99); Osmolality,Calculated 298 (280-300); Potassium 3.3 mEq/L (3.5-4.5); Sodium 141 mEq/L (136-145); eGFR For African Americans > 60 (> 60); eGFR For Non-African Americans 55 (> 60)
[2016-09-03] MEDS: *HR* Amiodarone 200 MG TABLET PO SCH (09:07)
[2016-09-03] MEDS: Loratadine 10 MG TABLET PO SCH (09:07)
[2016-09-03] MEDS: Finasteride 5 MG TABLET PO SCH (09:08)
[2016-09-03] MEDS: Aspirin Enteric Coated 81 MG Tablet PO SCH (09:08)
[2016-09-03] MEDS: Isosorbide MONOnitrate (24 HR) 60 MG TAB.ER.24H PO SCH ×2 (09:08→20:51)
--- NOTE | 2016-09-03 17:26 | Internal Med Progress Note ---
Date of Encounter: 09/03/16 Time of Encounter: 17:00 - Assessment and plan (1) Vertigo Current Visit: Yes Status: Acute Assessment and plan: Patient currently denies vertigo. Unclear causation at this time. Acute CVA ruled out. Blood pressure now improved with the resumption of his home medications. He is eating well. He does have a urinary tract infection which could be contributing. Chest x-ray negative. Head CT negative. Knee x-ray revealing soft tissue swelling with a small joint effusion. MRI negative for acute processes are revealing tiny old infarcts. Patient continues to have symptoms, meclizine 3 times a day. PT has recommended ECF placement, awaiting placement possibly to [facility]. Fall precautions. ITS Impressions Chest X-Ray 09/01/16 08:45 IMPRESSION: No acute abnormality. D/ / Erwin Maya MD / Erwin Maya MD Interpreting Provider: Erwin Maya MD Head CT 09/01/16 08:46 IMPRESSION: No acute intracranial abnormality. D/ / Erwin Maya MD / Erwin Maya MD Interpreting Provider: Erwin Maya MD Knee X-Ray 09/01/16 08:46 IMPRESSION: No acute fracture status post left total knee arthroplasty. Extensive prepatellar soft tissue swelling. Small knee joint effusion. D/ / 09/01/2016 09:53:57 Erwin Maya MD / marisol Interpreting Provider: Erwin Maya MD Brain MRI 09/01/16 11:22 IMPRESSION: Stable exam. No acute intracranial abnormality. 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 Mild to moderate parenchymal volume loss. Mild chronic microvascular disease. D/ / Fred Vee MD / Fred Vee MD Interpreting Provider: Fred Vee MD (2) Dizziness Current Visit: No Status: Acute (3) UTI (urinary tract infection) Current Visit: Yes Status: Acute Assessment and plan: Urinalysis with positive nitrites and large leuks, started on ceftriaxone. I spoke to [facility] and they will not have a preliminary urine culture back until tomorrow. We will await culture prior to sending to ECF. (4) Hemarthrosis, left knee Current Visit: Yes Status: Acute Assessment and plan: Plain films without acute fractures and revealing soft tissue swelling with small joint effusion. Edema and ecchymosis have improved since yesterday, remains with considerable size and tenderness. Knee immobilizer per orthopedic recommendations. Orthopedics have recommended weightbearing as tolerated and follow up outpatient. OTC as he has no needs. PT has recommended ECF placement. Awaiting placement possibly at [facility]. Need urine culture back prior to sending. Likely tomorrow pending clinical outcomes. ITS Impressions Knee X-Ray 09/01/16 08:46 IMPRESSION: No acute fracture status post left total knee arthroplasty. Extensive prepatellar soft tissue swelling. Small knee joint effusion. D/ / 09/01/2016 09:53:57 Erwin Maya MD / marisol Interpreting Provider: Erwin Maya MD (5) CVA (cerebral vascular accident) Current Visit: Yes Status: Ruled-out Assessment and plan: Ruled out. MRI negative for acute processes. (6) Recurrent falls Current Visit: Yes Status: Acute Assessment and plan: Awaiting placement. (7) CKD (chronic kidney disease) stage 3, GFR 30-59 ml/min Current Visit: Yes Status: Chronic Assessment and plan: Stable and consistent with his baseline. Creatinine normal today. (8) DVT prophylaxis Current Visit: No Status: Acute Assessment and plan: SCD's ordered. Pharmacologic prophylaxis contraindicated secondary to knee injury (9) Hypokalemia Current Visit: No Status: Acute Assessment and plan: Mild, will replete and check in the morning. Magnesium normal. (10) Hypothyroid Current Visit: No Status: Chronic Assessment and plan: TSH checked in June, normal (11) Hypertension Current Visit: Yes Status: Chronic Assessment and plan: Uncontrolled upon admission, now controlled that his home medications have been resumed. Acute CVA has been ruled out, no indication for permissive hypertension at this time, home medications have been resumed except for his lisinopril, monitoring renal functioning. Qualifiers: Hypertension type: essential hypertension Qualified Code(s): I10 - Essential (primary) hypertension (12) CAD (coronary artery disease) Current Visit: Yes Status: Chronic Assessment and plan: Patient denies chest pain or shortness of breath Qualifiers: Coronary Disease-Associated Artery/Lesion type: [place] artery [place] vs. transplanted heart: [place] heart Associated angina: without angina Qualified Code(s): I25.10 - Atherosclerotic heart disease of [place] coronary artery without angina pectoris - Subjective Interval history: Patient seen and examined. On examination, patient resting supine in bed. I helped him to the bedside commode and he states that his pain was controlled. He denied shortness of breath or concerns at this time. - Constitutional Vitals: Temp Pulse Resp BP Pulse Ox 98.6 F 78 16 109/68 93 09/03/16 16:01 09/03/16 16:01 09/03/16 16:01 09/03/16 16:01 09/03/16 16:01 General appearance: Present: A&O X 3, pleasant, no acute distress, answers questions appropriately - Head Head exam: Present: atraumatic, normocephalic - Eye Eye exam: Present: PERRL, conjuntiva pink, sclera anicteric Pupils: Present: PERRL - Neck Neck exam general surgery: Present: supple, trachea midline. Absent: lymphadenopathy - Respiratory Respiratory exam: Present: CTAB. Absent: accessory muscle use, rales, respiratory distress, rhonchi, wheezes - Cardiovascular Cardiovascular exam: Present: RRR, +S1, +S2. Absent: diastolic murmur, gallop, rubs, systolic murmur - GI/Abdominal GI/Abdominal exam: Present: normal bowel sounds, soft, no peritoneal signs. Absent: distended, tenderness - Extremities Exam Extremities exam: Present: warm, radial pulses palpable and symetrical. Absent : calf tenderness, cyanotic, pedal edema - Expanded Lower Extremities Exam Knee exam: Present: ecchymosis, erythema, swelling, tenderness Lower Leg exam: Present: ecchymosis, erythema, swelling, tenderness Ankle exam: Present: swelling Foot/Toe exam: Present: swelling Neuro vascular tendon exam: Present: no vascular compromise Gait: Present: observed and limited by pain - Neurological Exam Neurological exam: Present: alert, CN II-XII intact, oriented X3, no focal deficits, strengths equal and symetr throughout. Absent: pronater drift, facial droop, speech deficit - Skin Skin exam: Present: dry, intact, pallor, warm Internal Medicine: Result - Labs CBC & Chem 7: 09/02/16 03:34 09/03/16 04:54 Labs: BMP 09/03/16 04:54 Sodium 141 Potassium 3.3 L Chloride 103 Carbon Dioxide 27 BUN 26 Creatinine 1.25 Glucose 118 H Calcium 9.1 Consult Discharge Plan - Plan Referrals: Haroon Liriano MD [Primary Care Provider] -
[2016-09-03] MEDS ORDERED: Potassium Chloride Elixir 20 MEQ/15 ML UDC PO ONE (17:28)
[2016-09-04] MEDS: ALPRAZolam 0.25 MG TABLET PO PRN (01:30)
[2016-09-04 07:07] LABS: BUN/Creatinine Ratio 25 (6-26); Blood Urea Nitrogen 26 mg/dL (8-26); Carbon Dioxide 25 mEq/L (19-29); Chloride 108 mEq/L (98-109); Glucose 109 mg/dL (70-99); Osmolality,Calculated 303 (280-300); Potassium 3.6 mEq/L (3.5-4.5); Sodium 144 mEq/L (136-145); eGFR For African Americans > 60 (> 60); eGFR For Non-African Americans > 60 (> 60)
[2016-09-04] MEDS: Finasteride 5 MG TABLET PO SCH (08:26)
[2016-09-04] MEDS: *HR* Amiodarone 200 MG TABLET PO SCH (08:27)
[2016-09-04] MEDS: Aspirin Enteric Coated 81 MG Tablet PO SCH (08:27)
[2016-09-04] MEDS: Isosorbide MONOnitrate (24 HR) 60 MG TAB.ER.24H PO SCH ×2 (08:27→20:21)
[2016-09-04] MEDS: Loratadine 10 MG TABLET PO SCH (08:27)
--- NOTE | 2016-09-04 13:11 | Internal Med Progress Note ---
Date of Encounter: 09/04/16 Time of Encounter: 08:45 - Assessment and plan (1) Vertigo Current Visit: Yes Status: Acute Assessment and plan: Stable currently being treated with meclizine. Awaiting placement to skilled rehabilitation. (2) Dizziness Current Visit: Yes Status: Acute Assessment and plan: Improving. (3) Hemarthrosis, left knee Current Visit: Yes Status: Acute Assessment and plan: Stable. Continue supportive care. Orthopedics recommendations are being followed. PTOT. Placement to skilled rehabilitation. (4) UTI (urinary tract infection) Current Visit: Yes Status: Acute Assessment and plan: Urine culture growing gram-positive cocci. We will await final cultures prior to sending to [facility] AT [facility]. Qualifiers: Urinary tract infection type: site unspecified Hematuria presence: without hematuria Qualified Code(s): N39.0 - Urinary tract infection, site not specified - Subjective Interval history: Patient is awake and alert. Doing well overall. Pain in his left leg is fairly controlled. Denies any new complaints at this time. Having good urine output. No dysuria. - Constitutional Vitals: Temp Pulse Resp BP Pulse Ox 98.3 F 67 15 125/69 96 09/04/16 11:18 09/04/16 11:18 09/04/16 11:18 09/04/16 11:18 09/04/16 11:18 General appearance: Present: A&O X 3, pleasant, no acute distress, answers questions appropriately - Respiratory Respiratory exam: Present: CTAB. Absent: accessory muscle use, rales, rhonchi, wheezes - Cardiovascular Cardiovascular exam: Present: RRR, +S1, +S2. Absent: diastolic murmur, gallop, rubs, systolic murmur - GI/Abdominal GI/Abdominal exam: Present: normal bowel sounds, soft, no peritoneal signs. Absent: distended, tenderness - Extremities Exam Extremities exam: Present: warm, radial pulses palpable and symetrical. Absent : calf tenderness, cyanotic, pedal edema Additional comments: Ecchymosis present over left knee - Neurological Exam Neurological exam: Present: alert, oriented X3, no focal deficits. Absent: pronater drift, facial droop, speech deficit - Skin Skin exam: Present: dry, intact Internal Medicine: Result - Labs CBC & Chem 7: 09/02/16 03:34 09/04/16 06:05 Labs: BMP 09/04/16 06:05 Sodium 144 Potassium 3.6 Chloride 108 Carbon Dioxide 25 BUN 26 Creatinine 1.03 Glucose 109 H Calcium 9.0 Consult Discharge Plan - Plan Referrals: Haroon Liriano MD [Primary Care Provider] - - Attending Attestation This document has been at least partially created by [employer] recognition technology by Dr. Markham. Errors in grammar, wording or other phrases may exist. If errors are found after the documentation is signed, they will be addressed individually in the addendum section of this document when appropriate.
[2016-09-05 06:59] VITALS: BP 155/73
[2016-09-05] MEDS: Aspirin Enteric Coated 81 MG Tablet PO SCH (08:48)
[2016-09-05] MEDS: *HR* Amiodarone 200 MG TABLET PO SCH (08:48)
[2016-09-05] MEDS: Loratadine 10 MG TABLET PO SCH (08:48)
[2016-09-05] MEDS: Isosorbide MONOnitrate (24 HR) 60 MG TAB.ER.24H PO SCH (08:48)
[2016-09-05] MEDS: Finasteride 5 MG TABLET PO SCH (08:49)
--- NOTE | 2016-09-05 09:33 | Discharge Summary ---
Date of Encounter: 09/05/16 Time of Encounter: 08:45 - Discharge Diagnosis (1) Vertigo Priority: Primary Status: Acute (2) Dizziness Priority: Secondary Status: Acute (3) Hemarthrosis, left knee Priority: Secondary Status: Acute (4) UTI (urinary tract infection) Priority: Secondary Status: Acute Qualifiers: Urinary tract infection type: acute cystitis Hematuria presence: without hematuria Qualified Code(s): N30.00 - Acute cystitis without hematuria - Discharge Medications Prescriptions: ALPRAZolam [Xanax 0.25 MG Tablet] 0.25 mg PO DAILY PRN #10 tablet PRN Reason: Anxiety cephALEXin [Keflex] 500 mg PO BID 2 Days Tramadol HCl [Ultram] 50 mg PO TID PRN #14 tab PRN Reason: moderate pain Home Medications: Amiodarone HCl [Pacerone] 200 mg PO DAILY 02/18/16 [History] Aspirin [Lo-Dose Aspirin EC] 81 mg PO DAILY 02/18/16 [History] Atorvastatin Calcium [Lipitor] 80 mg PO HS 02/18/16 [History] Finasteride [Proscar] 5 mg PO DAILY 02/18/16 [History] Furosemide [Lasix] 40 mg PO DAILY 02/18/16 [History] Levothyroxine Sodium [Levoxyl] 50 mcg PO QAM 02/18/16 [History] Lisinopril [Zestril] 40 mg PO DAILY 02/18/16 [History] Nitroglycerin [Nitrostat] 0.4 mg SL Q5M PRN 02/18/16 [History] Oxybutynin Chloride [Ditropan Xl] 10 mg PO HS 02/18/16 [History] Potassium Chloride [Klor-Con Sprinkle] 20 meq PO BID 02/18/16 [History] Cholecalciferol (Vitamin D3) [Vitamin D3] 2,000 unit PO DAILY 06/29/16 [History] Isosorbide MONOnitrate (24 HR) [Imdur] 60 mg PO BID 06/29/16 [History] Galantamine HBr [Razadyne ER] 24 mg PO DAILY 09/01/16 [History] Loratadine [Allergy Relief] 10 mg PO DAILY 09/01/16 [History] ALPRAZolam [Xanax 0.25 MG Tablet] 0.25 mg PO DAILY PRN #10 tablet 09/05/16 [Rx] Meclizine [Antivert] 12.5 mg PO TID PRN tablet 09/05/16 [Rx] Tramadol HCl [Ultram] 50 mg PO TID PRN #14 tab 09/05/16 [Rx] cephALEXin [Keflex] 500 mg PO BID 2 Days 09/05/16 [Rx] Allergies/Adverse Reactions: Allergies acetaminophen [From Percocet] Adverse Reaction (Verified 06/29/16 11:29) Hallucinating Oxycodone [From Percocet] Adverse Reaction (Verified 06/29/16 11:29) Hallucinating Date of admission: 09/01/16 12:31 Primary care physician: Haroon Liriano MD Consults: 09/03/16 14:22 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 [CONS] Routine Reason for SW Consult: possible ecf placement Discharging clinician: Sammi Markham Anticipated date of discharge: 09/05/16 - Patient Status Disposition: Transfer SNF Condition: Good Functional capacity at discharge: uses cane/walker Overall status at discharge: patient is progressing back to baseline - Discharge Instructions Instructions: Urinary Tract Infection in Men (DC) Follow Up With: Haroon Liriano MD [Primary Care Provider] - (In 1-2 weeks) Additional Instructions: Follow-up with orthopedics in 2-3 weeks - Diet and Activity Activity: as per physical therapy, other (nonoperative knee immobilizer and weightbearing as tolerated) Diet: advance to your usual diet, low fat, low cholesterol, low salt diet Hospital course: Mr. Ralph is a 86 year old male patient who was admitted here with sudden onset of vertigo With suspicion for acute CVA along with left knee hemarthrosis. Patient was monitored closely and evaluated for acute CVA and underwent MRI of the brain which did not show any acute infarct but the patient had tiny old infarcts. Patient was treated for his vertigo symptomatically with meclizine with improvement in his symptoms. He was evaluated by orthopedics for his left knee hemarthrosis and recommended knee immobilizer and outpatient follow-up. He was not placed on anticoagulation for DVT prophylaxis during this stay because of his hemarthrosis. He was evaluated by physical therapy and recommended placement to skilled rehabilitation. Patient was also diagnosed with acute UTI and was treated with IV Rocephin. His urine culture is positive for staph epidermidis. This could be a contaminant or could be an infection. However as the patient's condition has improved with treatment, we will complete antibiotic treatment with Cephalexin. Patient is feeling much better now and is stable for discharge from the hospital. He will be placed to skilled rehabilitation and has a bed available for him. - Time Spent with Patient Total time spent providing and/or coordinating discharge services: Greater than 30 minutes (40 min) - Constitutional Vitals: Temp Pulse Resp BP Pulse Ox 98 F 74 20 155/73 96 09/05/16 06:58 09/05/16 06:58 09/05/16 06:58 09/05/16 06:58 09/05/16 06:58 General appearance: Present: A&O X 3, pleasant, no acute distress, answers questions appropriately - Respiratory Respiratory exam: Present: CTAB. Absent: accessory muscle use, rales, rhonchi, wheezes - Cardiovascular Cardiovascular exam: Present: RRR, +S1, +S2. Absent: diastolic murmur, gallop, rubs, systolic murmur - GI/Abdominal GI/Abdominal exam: Present: normal bowel sounds, soft, no peritoneal signs. Absent: distended, tenderness - Extremities Exam Extremities exam: Present: warm, radial pulses palpable and symetrical. Absent : calf tenderness, cyanotic, pedal edema Additional comments: Ecchymosis noted over left knee which is improving - Attending Attestation This document has been at least partially created by [employer] recognition technology by Dr. Markham. Errors in grammar, wording or other phrases may exist. If errors are found after the documentation is signed, they will be addressed individually in the addendum section of this document when appropriate.
--- NOTE | 2016-09-05 09:45 | Physician Discharge Referral ---
ExtendedCare Referral Info Provider in Charge after Transfer: PCP Institutional Level of Care: Skilled - Diagnosis (1) Vertigo Priority: Primary Status: Acute (2) Dizziness Priority: Secondary Status: Acute (3) Hemarthrosis, left knee Priority: Secondary Status: Acute (4) UTI (urinary tract infection) Priority: Secondary Status: Acute Prognosis: Good Aware of Diagnosis: Patient Aware of Prognosis: Patient - Transfer Medications Prescriptions: cephALEXin [Keflex] 500 mg PO BID 2 Days Home Medications: ALPRAZolam [Xanax 0.25 MG Tablet] 0.25 mg PO DAILY PRN 02/18/16 [History] Amiodarone HCl [Pacerone] 200 mg PO DAILY 02/18/16 [History] Aspirin [Lo-Dose Aspirin EC] 81 mg PO DAILY 02/18/16 [History] Atorvastatin Calcium [Lipitor] 80 mg PO HS 02/18/16 [History] Finasteride [Proscar] 5 mg PO DAILY 02/18/16 [History] Furosemide [Lasix] 40 mg PO DAILY 02/18/16 [History] Levothyroxine Sodium [Levoxyl] 50 mcg PO QAM 02/18/16 [History] Lisinopril [Zestril] 40 mg PO DAILY 02/18/16 [History] Nitroglycerin [Nitrostat] 0.4 mg SL Q5M PRN 02/18/16 [History] Oxybutynin Chloride [Ditropan Xl] 10 mg PO HS 02/18/16 [History] Potassium Chloride [Klor-Con Sprinkle] 20 meq PO BID 02/18/16 [History] traMADol [Ultram] 50 mg PO TID 02/18/16 [History] Cholecalciferol (Vitamin D3) [Vitamin D3] 2,000 unit PO DAILY 06/29/16 [History] Isosorbide MONOnitrate (24 HR) [Imdur] 60 mg PO BID 06/29/16 [History] Galantamine HBr [Razadyne ER] 24 mg PO DAILY 09/01/16 [History] Loratadine [Allergy Relief] 10 mg PO DAILY 09/01/16 [History] Meclizine [Antivert] 12.5 mg PO TID PRN tablet 09/05/16 [Rx] cephALEXin [Keflex] 500 mg PO BID 2 Days 09/05/16 [Rx] Allergies/Adverse Reactions: Allergies acetaminophen [From Percocet] Adverse Reaction (Verified 06/29/16 11:29) Hallucinating Oxycodone [From Percocet] Adverse Reaction (Verified 06/29/16 11:29) Hallucinating - Respiratory Orders Oxygen / L per min (keep sats >90%) Smoking Cessation: Smoking cessation has been advised. For more information, call the [place] Tobacco Quit Line at 8-403-RMAE-NOW. - Advance Directives Code Status: Full Code - Mobility Orders Ambulate (with PT) - Rehabiliation Orders Rehab Potential: Good Rehab Orders: Evaluation for Physical Therapy, Evaluation for Occupational Therapy Other: Knee immobilizer and weightbearing as tolerated - Diet Orders No Added Salt (EVELYN), Cardiac CERTIFICATION: I certify that the transfer of the above named patient to an Extended Care Facility is necessary for the continuing treatment of the diagnosis listed. The above information is true and accurate reflection of patient's current condition. Confidential - Redisclosure prohibited without a patient's written consent.
--- NOTE | 2016-09-05 16:38 | Electrocardiograph Report ---
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
== END 2016-09-05 11:03 | DRG 149 ==
LOC: EMEROO 08:37 → 3BNU 08:37 → SUATTDRO 12:31
PROVIDERS: ADMIT Internal Medicine Sleep Medicine; ATTEND Internal Medicine

== ENCOUNTER 2016-10-06 09:27 | Inpatient (IN) ==
--- NOTE | 2016-10-06 09:52 | Emergency Department Note ---
Disposition Clinical Impression: Near syncope Pulmonary embolism Qualifiers: Pulmonary embolism type: other Chronicity: acute Acute cor pulmonale presence: without acute cor pulmonale Qualified Code(s): I26.99 - Other pulmonary embolism without acute cor pulmonale DVT (deep venous thrombosis) Qualifiers: DVT location: lower extremity Affected thrombotic vein of extremity: tibial Laterality: left Chronicity: acute Qualified Code(s): I82.442 - Acute embolism and thrombosis of left tibial vein Disposition: Admitted As Inpatient Condition: Undetermined Referrals: Heri,Haroon Silva MD [Primary Care Provider] - Forms: ED Satisfaction Letter Time of Disposition: 12:26 Dizziness HPI - General Chief Complaint: ED Dizziness Stated Complaint: " Dizzy" Time Seen by Provider: 10/06/16 09:33 Source: patient, EMS Mode of arrival: EMS Limitations: no limitations Nursing Notes Reviewed: Yes Vital Signs Reviewed: Yes - History of Present Illness HPI Narrative: 86-year-old male with history of CHF arrives to [facility] emergency department after stating that while he was getting dressed this morning he felt severe dizziness with it felt as though the room was spinning. The patient states that he cannot catch his balance. The patient says this lasted roughly 10 minutes. The patient had no other associated symptoms with this including chest pain, difficulty breathing, abdominal pain, focalized weakness, headache, fever, chills. Patient denies any other complaints at this time. He does have bilateral lower extremity swelling with a worse on the left. The patient denies any previous history of CVA. 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 Timing: sudden onset Description: "room spinning" History of similar episodes: Yes History of trauma: No Severity: moderate Improves with: nothing Worsens with: nothing Associated symptoms: Reports: denies other symptoms - Related Data Home Medications Medication Instructions Recorded Confirmed Amiodarone HCl [Pacerone] 200 mg PO DAILY 02/18/16 09/01/16 Aspirin [Lo-Dose Aspirin EC] 81 mg PO DAILY 02/18/16 09/01/16 Atorvastatin Calcium [Lipitor] 80 mg PO HS 02/18/16 09/01/16 Finasteride [Proscar] 5 mg PO DAILY 02/18/16 09/01/16 Furosemide [Lasix] 40 mg PO DAILY 02/18/16 09/01/16 Levothyroxine Sodium [Levoxyl] 50 mcg PO QAM 02/18/16 09/01/16 Lisinopril [Zestril] 40 mg PO DAILY 02/18/16 09/01/16 Nitroglycerin [Nitrostat] 0.4 mg SL Q5M PRN 02/18/16 09/01/16 Oxybutynin Chloride [Ditropan Xl] 10 mg PO HS 02/18/16 09/01/16 Potassium Chloride [Klor-Con 20 meq PO BID 02/18/16 09/01/16 Sprinkle] Cholecalciferol (Vitamin D3) 2,000 unit PO DAILY 06/29/16 09/01/16 [Vitamin D3] Isosorbide MONOnitrate (24 HR) 60 mg PO BID 06/29/16 09/01/16 [Imdur] Galantamine HBr [Razadyne ER] 24 mg PO DAILY 09/01/16 09/01/16 Loratadine [Allergy Relief] 10 mg PO DAILY 09/01/16 09/01/16 Previous Rx's Medication Instructions Recorded ALPRAZolam [Xanax 0.25 MG Tablet] 0.25 mg PO DAILY PRN #10 tablet 09/05/16 Meclizine [Antivert] 12.5 mg PO TID PRN tablet 09/05/16 Tramadol HCl [Ultram] 50 mg PO TID PRN #14 tab 09/05/16 cephALEXin [Keflex] 500 mg PO BID 2 Days 09/05/16 Allergies Allergy/AdvReac Type Severity Reaction Status Date / Time acetaminophen [From Percocet] AdvReac Hallucinati Verified 10/06/16 09:29 ng Oxycodone [From Percocet] AdvReac Hallucinati Verified 10/06/16 09:29 ng All systems ED: reviewed and negative except as stated. Constitutional: Denies: fever, chills, weakness, weight change Cardiovascular: Denies: chest pain, palpitations, dyspnea on exertion, edema, syncope Respiratory: Denies: cough, dyspnea, wheezes, hemoptysis, stridor Gastrointestinal: Denies: abdominal pain, nausea, vomiting, diarrhea, constipation, hematemesis, melena, hematochezia Genitourinary: Denies: urgency, dysuria, frequency, hematuria Musculoskeletal: Denies: back pain, neck pain, arthralgia, myalgia Neurological: Reports: vertigo. Denies: headache, weakness, numbness, paresthesias, confusion, abnormal gait Past Medical History - Past Medical History Attestation: Yes The following information was validated with the patient. Source: patient Medical history: Reports: CHF, coronary artery disease, hyperlipidemia, hypertension Surgical history: Reports: coronary bypass (CABG) (1979) Psychiatric history: Reports: no psych history - Social History Smoking Status: Never smoker Smokeless Tobacco Status: No Alcohol use: Reports: none Drug use: Reports: none Physical Exam - General Limitations: no limitations General appearance: alert, in no apparent distress - Head Head exam: atraumatic, normocephalic, normal inspection - Neck Neck exam: Present: normal inspection, full ROM, trachea midline - Chest Chest inspection: Present: normal inspection, symmetric chest wall rise - Respiratory Respiratory exam: Present: normal lung sounds bilaterally - Cardiovascular Cardiovascular exam: Present: regular rate, normal rhythm, systolic murmur ( Grade 1-2) - Abdominal Exam Abdominal exam: Present: soft, Non-Tender. Absent: tenderness, distention, guarding, rebound, rigidity - Extremities Exam Extremities exam: Present: pedal edema (Worse on left, 3-4+ pitting) - Neurological Exam Neurological exam: Present: alert, oriented X3 - Skin Skin exam: Present: warm, dry, intact, normal color, other (Chronic venous stasis changes.) Course - Reevaluation(s) Reevaluation #1: Radiologist notified about right lower lobe segmental pulmonary embolus that is acute. Time: 11:56 Vital Signs Temperature 99.0 F 10/06/16 09:29 Pulse Rate 68 10/06/16 09:29 Respiratory Rate 16 10/06/16 09:29 Blood Pressure 198/89 10/06/16 09:29 O2 Sat by Pulse Oximetry 97 10/06/16 09:29 Temperature 99.0 F 10/06/16 09:29 Pulse Rate 62 10/06/16 12:25 Respiratory Rate 18 10/06/16 12:25 Blood Pressure 188/99 10/06/16 12:25 O2 Sat by Pulse Oximetry 98 10/06/16 12:25 Oxygen Delivery Oxygen Delivery Room Air Dizziness - MDM Narrative Medical decision making narrative: Patient noted to have left lower extremity DVT in the tibial vein. In addition the patient has a right lower lobe segmental PE that is acute. The patient denies any black or bloody stools, bloody emesis. We will begin the patient on heparin. The patient will be admitted to the hospital for further workup. The patient does take Plavix and aspirin daily. Patient agrees to plan. We will admit to the hospitalist service. Accepted by Dr. Markham. - Lab Data Lab results reviewed: Yes I reviewed the patient's lab results. Result diagrams: 10/06/16 10:24 10/06/16 10:24 Lab Results 10/06/16 10/06/16 10/06/16 Range/Units 09:36 10:24 10:24 WBC 7.5 (4.3-11.1) K/mcL RBC 4.08 L (4.19-5.50) M/mcL Hgb 13.6 (12.9-16.9) g/dL Hct 42.4 (37.5-50.1) % MCV 103.9 H (83.0-100.0) fL MCH 33.3 (28.0-33.3) pg MCHC 32.1 (31.6-35.5) g/dL RDW 13.7 (11.5-14.5) % Plt Count 210 (140-400) K/mcL MPV 11.4 (9.4-12.4) fL Immature Gran % 0.3 (0-4) % Seg Neutrophils % 68.5 % Lymphocytes % 17.4 % Monocytes % 8.8 % Eosinophils % 4.2 % Basophils % 0.8 % Neutrophils # 5.2 (1.6-8.9) K/mcL Lymphocytes # 1.3 (0.6-4.6) K/mcL Monocytes # 0.7 (0.0-1.3) K/mcL Eosinophils # 0.3 (0.0-0.6) K/mcL Basophils # 0.1 (0.0-0.2) K/mcL D-Dimer 2147 H (0-500) ng/mLFEU Sodium (136-145) mEq/L Potassium (3.5-4.5) mEq/L Chloride (98-109) mEq/L Carbon Dioxide (19-29) mEq/L BUN (8-26) mg/dL Creatinine (0.72-1.25) mg/dL Est GFR ( Amer) (> 60) Est GFR (Non-Af Amer) (> 60) BUN/Creatinine Ratio (6-26) Glucose (70-99) mg/dL POC Glucose 95 H (58-89) Calculated Osmolality (280-300) Calcium (8.6-10.8) mg/dL Troponin I (0-0.03) ng/mL Urine Color (Yellow) Urine Clarity (Clear) Urine pH (5.0-8.0) pH Units Ur Specific [place] (1.010-1.025) Urine Protein (Neg-Trace) mg/dL Urine Glucose (UA) (Normal) mg/dL Urine Ketones (Negative) mg/dL Urine Blood (Negative) Urine Nitrite (Negative) Urine Bilirubin (Negative) Urine Urobilinogen (Normal) mg/dL Ur Leukocyte Esterase (Negative) Ur Culture Indicated? (NO) 10/06/16 10/06/16 10/06/16 Range/Units 10:24 10:24 12:13 WBC (4.3-11.1) K/mcL RBC (4.19-5.50) M/mcL Hgb (12.9-16.9) g/dL Hct (37.5-50.1) % MCV (83.0-100.0) fL MCH (28.0-33.3) pg MCHC (31.6-35.5) g/dL RDW (11.5-14.5) % Plt Count (140-400) K/mcL MPV (9.4-12.4) fL Immature Gran % (0-4) % Seg Neutrophils % % Lymphocytes % % Monocytes % % Eosinophils % % Basophils % % Neutrophils # (1.6-8.9) K/mcL Lymphocytes # (0.6-4.6) K/mcL Monocytes # (0.0-1.3) K/mcL Eosinophils # (0.0-0.6) K/mcL Basophils # (0.0-0.2) K/mcL D-Dimer (0-500) ng/mLFEU Sodium 143 (136-145) mEq/L Potassium 4.4 (3.5-4.5) mEq/L Chloride 103 (98-109) mEq/L Carbon Dioxide 30 H (19-29) mEq/L BUN 18 (8-26) mg/dL Creatinine 1.17 (0.72-1.25) mg/dL Est GFR ( Amer) > 60 (> 60) Est GFR (Non-Af Amer) 59 L (> 60) BUN/Creatinine Ratio 15 (6-26) Glucose 110 H (70-99) mg/dL POC Glucose (58-89) Calculated Osmolality 299 (280-300) Calcium 9.5 (8.6-10.8) mg/dL Troponin I 0.02 (0-0.03) ng/mL Urine Color Yellow (Yellow) Urine Clarity Clear (Clear) Urine pH 7.5 (5.0-8.0) pH Units Ur Specific [place] 1.019 (1.010-1.025) Urine Protein Negative (Neg-Trace) mg/dL Urine Glucose (UA) Normal (Normal) mg/dL Urine Ketones Negative (Negative) mg/dL Urine Blood Negative (Negative) Urine Nitrite Negative (Negative) Urine Bilirubin Negative (Negative) Urine Urobilinogen Normal (Normal) mg/dL Ur Leukocyte Esterase Negative (Negative) Ur Culture Indicated? NO (NO) - Radiology Data Radiology results reviewed: Yes I reviewed the patient's radiology results. - EKG Data EKG attestation: Yes I reviewed and interpreted this EKG. EKG results narrative: Heart rate 62 bpm. QTC 393 ms. Left axis deviation. No ST elevation or ST depression noted. Normal sinus rhythm. EKG similar to EKG from 09/04/2016. No acute changes noted. Critical Care Time Critical Care Time: Yes Total Critical Care Time: 35 Attestation: Care time 35 minutes managing PE and DVT. Attestation Statement - Attestation Attestation: Patient was seen with resident physician. I reviewed the history, physical, assessment and plan, and agree with the findings. I also personally evaluated this patient and had [id number] time with this patient. He-year-old male who comes to the emergency department today with a chief complaint of dizziness. Patient states that he bent over as she was going to the shower got very dizzy said the room was spinning in a brace himself, thinking that he was going to fall. He said he took some time getting to a seated position and then called EMS. He did not fall. He does have a history of recent falls for which she is being seen by occupational therapy specifically for a left knee injury. Patient is not a chest pain shortness of breath abdominal pain or other complaints. Currently he does not feel dizzy. On examination vital signs are stable. ENT is unremarkable. Heart lungs normal. Abdomen is soft and nontender. Extremities patient has 4+ edema on the left lower extremity 1-2+ in the right lower extremity with significant difference between the 2. ED course we will do workup for syncope and dizziness. We will also treat patient' s symptoms. With the patient's symptoms and felt that a CT scan of the chest as well as a ultrasound of the leg were indicated. Additionally had a d-dimer greater than 2000. CT scan of chest revealed a PE, and ultrasound of the left lower extremity revealed DVT. Per hospitalist request he was started on Lovenox. We will admit to the hospital for additional treatment, hospitalist was notified. While in the emergency department he remained hemodynamically stable and oxygenating well. Critical care time for this patient was 35 minutes. I agree with the resident physician assessment and plan.
[2016-10-06 10:31] LABS: Basophils # 0.1 K/mcL (0.0-0.2); Basophils % 0.8 %; Eosinophils # 0.3 K/mcL (0.0-0.6); Eosinophils % 4.2 %; Hematocrit 42.4 % (37.5-50.1); Hemoglobin 13.6 g/dL (12.9-16.9); Immature Granulocytes % 0.3 % (0-4); Lymphocytes # 1.3 K/mcL (0.6-4.6); Lymphocytes % 17.4 %; Mean Corpuscular HGB Conc 32.1 g/dL (31.6-35.5); Mean Corpuscular Hemoglobin 33.3 pg (28.0-33.3); Mean Corpuscular Volume 103.9 fL (83.0-100.0); Mean Platelet Volume 11.4 fL (9.4-12.4); Monocytes # 0.7 K/mcL (0.0-1.3); Monocytes % 8.8 %; Neutrophils # 5.2 K/mcL (1.6-8.9); Platelet Count 210 K/mcL (140-400); Red Blood Count 4.08 M/mcL (4.19-5.50); Red Cell Distribution Width 13.7 % (11.5-14.5); Segmented Neutrophils % 68.5 %
[2016-10-06 10:44] LABS: BUN/Creatinine Ratio 15 (6-26); Blood Urea Nitrogen 18 mg/dL (8-26); Calcium 9.5 mg/dL (8.6-10.8); Carbon Dioxide 30 mEq/L (19-29); Chloride 103 mEq/L (98-109); Glucose 110 mg/dL (70-99); Osmolality,Calculated 299 (280-300); Potassium 4.4 mEq/L (3.5-4.5); Sodium 143 mEq/L (136-145); eGFR For African Americans > 60 (> 60); eGFR For Non-African Americans 59 (> 60)
[2016-10-06] MEDS ORDERED: 0.9 % Sodium Chloride 500 ML IVC ONE (10:54)
[2016-10-06] MEDS ORDERED: *HR* Heparin 5,000 UNIT/ML VIAL IVP ONE (12:17)
[2016-10-06] MEDS ORDERED: *HR* Heparin 5,000 UNIT/ML VIAL IVP PRN ×2 (12:17)
[2016-10-06 12:24] LABS: Bilirubin,Urine Negative (Negative); Blood,Urine Negative (Negative); Clarity,Urine Clear (Clear); Color,Urine Yellow (Yellow); Glucose,Urine (UA) Normal (Normal); Ketones,Urine Negative (Negative); Leukocyte Esterase,Urine Negative (Negative); Nitrite,Urine Negative (Negative); PH,Urine 7.5 pH Units (5.0-8.0); Protein,Urine Negative (Neg-Trace); Specific Gravity,Urine 1.019 (1.010-1.025); Urobilinogen,Urine Normal (Normal)
[2016-10-06] MEDS ORDERED: *HR* Enoxaparin 80 MG/0.8 ML SYRINGE SQ STA (12:24)
[2016-10-06] MEDS ORDERED: Heparin 25,000 UNIT/500 ML D5W 25,000 UNIT/500 ML MLS IVC SCH (12:30)
[2016-10-06 13:07] LABS: INR 1.1; Prothrombin Time 12.2 Seconds (9.4-12.1)
[2016-10-06] MEDS ORDERED: Naloxone 0.4 MG/ML INJ IVP PRN (14:14)
[2016-10-06] MEDS ORDERED: Nitroglycerin 0.4 MG TAB.SUBL SL PRN (14:15)
[2016-10-06] MEDS ORDERED: ALPRAZolam 0.25 MG TABLET PO PRN (14:15)
[2016-10-06] MEDS ORDERED: traMADol 50 MG TABLET PO PRN (14:15)
--- NOTE | 2016-10-06 14:29 | Internal Med History&Physical ---
Date of Encounter: 10/06/16 Time of Encounter: 14:26 Assessment and Plan (1) Pulmonary embolism Current visit: Yes Status: Acute Acute PE involving the right pulmonary arterial system in the right lower lobe. We will treat with anticoagulation with Lovenox and Coumadin. He will need to be on anticoagulation for at least 6 months. This could have probably brought on his symptoms of presyncope today. Qualifiers: Pulmonary embolism type: other Chronicity: acute Acute cor pulmonale presence: without acute cor pulmonale Qualified Code(s): I26.99 - Other pulmonary embolism without acute cor pulmonale (2) DVT (deep venous thrombosis) Current visit: Yes Status: Acute involving the leg. Treat with anticoagulation as described above. Qualifiers: DVT location: lower extremity Affected thrombotic vein of extremity: tibial Laterality: left Chronicity: acute Qualified Code(s): I82.442 - Acute embolism and thrombosis of left tibial vein (3) Dizziness Current visit: Yes Status: Acute Patient with bouts of dizziness have been going on for past several weeks to months. Review of patient's MRI shows that he is had old cerebellar infarcts. These could be contributing to his recurrent dizzy spells. We will consult physical therapy for evaluation. (4) Hypertension Current visit: Yes Status: Chronic Monitor blood pressure. Currently elevated. We will continue home medications and adjust accordingly. Qualifiers: Hypertension type: essential hypertension Qualified Code(s): I10 - Essential (primary) hypertension (5) CKD (chronic kidney disease) stage 3, GFR 30-59 ml/min Current visit: Yes Status: Chronic Renal function is currently much better. GFR 59. Creatinine 1.17. We will follow closely. (6) Near syncope Current visit: Yes Status: Acute Monitor vital signs. Check orthostatics. Most likely related to PE. Internal Medicine - H&P: HPI Chief complaint: Dizziness Admitted From: Emergency Dept Plans for Post Hospital Care: Home History of present illness: Mr. Ralph is a 86 year old male patient with a history of CHF, coronary artery disease, CVA, hyperlipidemia, hypertension presented to the ER complaining of episodes of dizziness. He has had multiple episodes of dizziness in the past when he had symptoms of the room spinning around him. He had been diagnosed and was placed on meclizine. However today his current episode began when he had completed dressing up and suddenly felt an episode of falling forwards and he had to hold onto the doorknob to keep himself from falling down. He has never had an episode of this kind before. He denies any chest pain or palpitations. No dyspnea or shortness of breath. He had been admitted to the hospital last month following an episode of fall resulting in hematoma involving his left knee. He had been discharged to skilled rehabilitation after that for physical therapy. Patient was discharged home just last week after completing physical therapy. Past Med Surg Social Fam HX - Past Medical History Attestation: Yes The following information was validated with the patient. Source: patient Medical history: CHF, coronary artery disease, hyperlipidemia, hypertension Psychiatric history: no psych history - Past Surgical History Surgical History: coronary bypass (CABG) (1979) - Social History Smoking Status: Never smoker Smokeless Tobacco Status: No Alcohol use: none Drug use: none - Family History Mother Hx Family Cardiac Disorders: No Hx Family Respiratory Disorders: No Hx Family Cancer: No Hx Family GI Disorders: Yes (stomach acid) Hx Family Endocrine Disorder: No Hx Family Neuromuscular Disorders: No Hx Family Neurologic Disorders: No Hx Family HEENT Disorders: No Hx Family Autoimmune Disorders: No Father Hx Family Cardiac Disorders: Yes (ID) Hx Family Respiratory Disorders: No Hx Family Cancer: No Hx Family GI Disorders: No Hx Family Endocrine Disorder: No Hx Family Neuromuscular Disorders: No Hx Family Neurologic Disorders: No Hx Family HEENT Disorders: No Hx Family Autoimmune Disorders: No Internal Medicine - H&P: Meds Amiodarone HCl [Pacerone] 200 mg PO DAILY 02/18/16 [History] Aspirin [Lo-Dose Aspirin EC] 81 mg PO DAILY 02/18/16 [History] Atorvastatin Calcium [Lipitor] 80 mg PO HS 02/18/16 [History] Finasteride [Proscar] 5 mg PO DAILY 02/18/16 [History] Furosemide [Lasix] 40 mg PO DAILY 02/18/16 [History] Levothyroxine Sodium [Levoxyl] 50 mcg PO QAM 02/18/16 [History] Lisinopril [Zestril] 40 mg PO DAILY 02/18/16 [History] Nitroglycerin [Nitrostat] 0.4 mg SL Q5M PRN 02/18/16 [History] Oxybutynin Chloride [Ditropan Xl] 10 mg PO HS 02/18/16 [History] Potassium Chloride [Klor-Con Sprinkle] 20 meq PO BID 02/18/16 [History] Cholecalciferol (Vitamin D3) [Vitamin D3] 2,000 unit PO DAILY 06/29/16 [History] Isosorbide MONOnitrate (24 HR) [Imdur] 60 mg PO BID 06/29/16 [History] Galantamine HBr [Razadyne ER] 24 mg PO DAILY 09/01/16 [History] Loratadine [Allergy Relief] 10 mg PO DAILY 09/01/16 [History] ALPRAZolam [Xanax 0.25 MG Tablet] 0.25 mg PO DAILY PRN #10 tablet 09/05/16 [Rx] Meclizine [Antivert] 12.5 mg PO TID PRN tablet 09/05/16 [Rx] Tramadol HCl [Ultram] 50 mg PO TID PRN #14 tab 09/05/16 [Rx] Vitamin E Acid Succinate [Vitamin E] 400 units PO DAILY 10/06/16 [History] Allergies acetaminophen [From Percocet] Adverse Reaction (Verified 10/06/16 09:29) Hallucinating Oxycodone [From Percocet] Adverse Reaction (Verified 10/06/16 09:29) Hallucinating All Systems PM: A 10-system review of systems was performed and is negative for pertinent findings except as documented above in the HPI. - Constitutional Constitutional: no chills, no fever(s), no night sweats - EENT Eyes: no change in vision, no discharge, no pain, no photophobia Ears: no ear discharge, no ear pain, no tinnitus Nose, mouth and throat: no dysphagia, no nasal discharge, no neck pain, no sore throat - Cardiovascular Cardiovascular ROS IM: no chest pain, no diaphoresis, no dyspnea, no lightheadedness, no palpitations, no syncope - Respiratory Respiratory: no cough, no dyspnea, no wheezing, no excessive phlegm production - Gastrointestinal Gastrointestinal: no abdominal pain, no diarrhea, no hematemesis, no hematochezia, no melena, no nausea, no vomiting - Musculoskeletal Musculoskeletal ROS IM: no numbness, no tingling - Integumentary Integumentary IM: no rash, no unusual bruising - Neurological Neurological ROS: no confusion, no convulsions, no focal weakness, no numbness, no tingling, no tremor(s) - Hematologic/Lymphatic Hematologic/Lymphatic: no easy bruising - Constitutional Vitals: Temp Pulse Resp BP Pulse Ox 99.0 F 62 18 188/99 98 10/06/16 09:29 10/06/16 12:25 10/06/16 13:06 10/06/16 13:06 10/06/16 12:25 General appearance: Present: cooperative, mild distress, A&O X 3, answers questions appropriately - Eye Eye exam: Present: EOMI, PERRL - ENT ENT exam: Present: mucous membranes moist - Neck Neck exam general surgery: Present: supple, trachea midline. Absent: lymphadenopathy - Respiratory Respiratory exam: Present: CTAB. Absent: accessory muscle use, rales, rhonchi, wheezes - Cardiovascular Cardiovascular exam: Present: RRR, +S1, +S2. Absent: diastolic murmur, gallop, rubs, systolic murmur - GI/Abdominal GI/Abdominal exam: Present: normal bowel sounds, soft, no peritoneal signs. Absent: distended, tenderness - Extremities Exam Extremities exam: Present: warm, radial pulses palpable and symetrical. Absent : calf tenderness, cyanotic, pedal edema Additional comments: Tenderness in left leg - Neurological Exam Neurological exam: Present: CN II-XII intact, oriented X3, no focal deficits. Absent: facial droop, speech deficit - Skin Skin exam: Present: dry, intact Internal Med - H&P Results - Labs CBC & Chem 7: 10/06/16 10:24 10/06/16 10:24
[2016-10-06] MEDS ORDERED: Warfarin perPT PO PRN (18:00)
[2016-10-06] MEDS ORDERED: *HR* Warfarin 1 MG TABLET PO ONE (18:00)
[2016-10-06] MEDS: Isosorbide MONOnitrate (24 HR) 60 MG TAB.ER.24H PO SCH (19:46)
[2016-10-06] MEDS ORDERED: Saline Nasal Spray 44 ML BOTTLE NS PRN (22:24)
[2016-10-06] MEDS: *HR* Enoxaparin 100 MG/ML SYRINGE SQ SCH (22:55)
[2016-10-07 06:55] LABS: Basophils # 0.1 K/mcL (0.0-0.2); Basophils % 0.6 %; Eosinophils # 0.4 K/mcL (0.0-0.6); Eosinophils % 4.6 %; Hemoglobin 12.8 g/dL (12.9-16.9); Immature Granulocytes % 0.2 % (0-4); Lymphocytes # 1.8 K/mcL (0.6-4.6); Lymphocytes % 22.5 %; Mean Corpuscular HGB Conc 32.8 g/dL (31.6-35.5); Mean Corpuscular Hemoglobin 33.3 pg (28.0-33.3); Mean Corpuscular Volume 101.6 fL (83.0-100.0); Mean Platelet Volume 11.4 fL (9.4-12.4); Monocytes # 0.8 K/mcL (0.0-1.3); Platelet Count 201 K/mcL (140-400); Red Blood Count 3.84 M/mcL (4.19-5.50); Red Cell Distribution Width 13.6 % (11.5-14.5); Segmented Neutrophils % 62.1 %
[2016-10-07 07:03] LABS: INR 1.2; Prothrombin Time 13.3 Seconds (9.4-12.1)
[2016-10-07 07:11] LABS: BUN/Creatinine Ratio 13 (6-26); Blood Urea Nitrogen 15 mg/dL (8-26); Calcium 8.9 mg/dL (8.6-10.8); Carbon Dioxide 27 mEq/L (19-29); Chloride 103 mEq/L (98-109); Glucose 88 mg/dL (70-99); Osmolality,Calculated 290 (280-300); Potassium 3.6 mEq/L (3.5-4.5); Sodium 140 mEq/L (136-145); eGFR For African Americans > 60 (> 60); eGFR For Non-African Americans > 60 (> 60)
[2016-10-07] MEDS: GALANTAMINE HBR 24 MG PO SCH (08:01)
[2016-10-07] MEDS: Cholecalciferol (D-3) 1,000 UNIT TABLET PO SCH (08:07)
[2016-10-07] MEDS: Finasteride 5 MG TABLET PO SCH (08:07)
[2016-10-07] MEDS: Isosorbide MONOnitrate (24 HR) 60 MG TAB.ER.24H PO SCH ×2 (08:08→20:10)
[2016-10-07] MEDS: Furosemide 40 MG TABLET PO SCH (08:08)
[2016-10-07] MEDS: Loratadine 10 MG TABLET PO SCH (08:08)
[2016-10-07] MEDS: Aspirin Enteric Coated 81 MG Tablet PO SCH (08:08)
[2016-10-07] MEDS: *HR* Amiodarone 200 MG TABLET PO SCH (08:08)
[2016-10-07] MEDS: Lisinopril 20 MG TABLET PO SCH (08:08)
--- NOTE | 2016-10-07 12:16 | Internal Med Progress Note ---
Date of Encounter: 10/07/16 Time of Encounter: 12:12 - Assessment and plan (1) Pulmonary embolism Current Visit: Yes Status: Acute Assessment and plan: PESI score 108 Troponin Negative ECHO and BNP pending Saturating well to 94-95% on room air Plan: Continue Lovenox We will start Coumadin Possible home in 1-2 days Qualifiers: Pulmonary embolism type: other Chronicity: acute Acute cor pulmonale presence: without acute cor pulmonale Qualified Code(s): I26.99 - Other pulmonary embolism without acute cor pulmonale (2) DVT (deep venous thrombosis) Current Visit: Yes Status: Acute Assessment and plan: Patient has lower limb DVT. Presently on anticoagulation Qualifiers: DVT location: lower extremity Affected thrombotic vein of extremity: tibial Laterality: left Chronicity: acute Qualified Code(s): I82.442 - Acute embolism and thrombosis of left tibial vein (3) Hypertension Current Visit: Yes Status: Chronic Assessment and plan: Likely essential hypertension We will resume home medication. Close follow-up. Qualifiers: Hypertension type: essential hypertension Qualified Code(s): I10 - Essential (primary) hypertension (4) Hypothyroid Current Visit: No Status: Chronic Assessment and plan: We will continue replacement therapy Qualifiers: Hypothyroidism type: unspecified Qualified Code(s): E03.9 - Hypothyroidism , unspecified (5) REEMDIOS (acute kidney injury) Current Visit: No Status: Resolved Assessment and plan: Kidney function back to baseline (6) DVT prophylaxis Current Visit: No Status: Acute Assessment and plan: Coumadin/Lovenox Medical decision making: This patient has a moderate to severe risk of worsening in view of underlying medical condition. - Subjective Interval history: seen and examined. chart reviewed, denies shortness of breath, chest pain and dizziness. sitting comfortably and eating break fast. - Constitutional Vitals: Temp Pulse Resp BP Pulse Ox 97.8 F 53 16 155/74 95 10/07/16 12:08 10/07/16 12:08 10/07/16 12:08 10/07/16 12:08 10/07/16 12:08 General appearance: Present: cooperative, mild distress, A&O X 3, answers questions appropriately - Head Head exam: Present: atraumatic, normocephalic - Eye Eye exam: Present: PERRL, conjuntiva pink, sclera anicteric Pupils: Present: PERRL - Neck Neck exam general surgery: Present: supple, trachea midline. Absent: lymphadenopathy - Respiratory Respiratory exam: Present: CTAB. Absent: accessory muscle use, rales, rhonchi, wheezes - Cardiovascular Cardiovascular exam: Present: RRR, +S1, +S2. Absent: diastolic murmur, gallop, rubs, systolic murmur - GI/Abdominal GI/Abdominal exam: Present: normal bowel sounds, soft, no peritoneal signs. Absent: distended, tenderness - Extremities Exam Extremities exam: Present: warm, radial pulses palpable and symetrical. Absent : calf tenderness, cyanotic, pedal edema - Neurological Exam Neurological exam: Present: CN II-XII intact, oriented X3, no focal deficits. Absent: pronater drift, facial droop, speech deficit - Skin Skin exam: Present: dry, intact Internal Medicine: Result - Labs CBC & Chem 7: 10/07/16 06:18 10/07/16 06:18 Labs: Short CBC 10/07/16 Range/Units 06:18 WBC 8.0 (4.3-11.1) K/mcL Hgb 12.8 L (12.9-16.9) g/dL Hct 39.0 (37.5-50.1) % Plt Count 201 (140-400) K/mcL Neutrophils # 5.0 (1.6-8.9) K/mcL BMP 10/07/16 06:18 Sodium 140 Potassium 3.6 Chloride 103 Carbon Dioxide 27 BUN 15 Creatinine 1.14 Glucose 88 Calcium 8.9 - ABG Interpretation ABG results: PT/INR, D-dimer PT 13.3 Seconds (9.4-12.1) H 10/07/16 06:18 D-Dimer 2147 ng/mLFEU (0-500) H 10/06/16 10:24 Consult Discharge Plan - Plan Referrals: Heri,Haroon Silva MD [Primary Care Provider] -
--- NOTE | 2016-10-07 12:16 | Electrocardiograph Report ---
[address] [address] Test Date: 2016-10-06 Pat Name: Kelvin Ralph Department: 102 Room: [facility] Gender: M [employer] Marker: Maximo : 1930 Requested By: Leon Lock Order Number: [id number] Reading MD: Marylu Tena Measurements Intervals [place] Rate: 62 P: MA: 0 QRS: -43 QRSD: 120 T: 97 QT: 388 QTc: 393 Interpretive Statements ATRIAL FIBRILLATION LEFT AXIS DEVIATION INTRAVENTRICULAR CONDUCTION DELAY MODERATE VOLTAGE CRITERIA FOR LVH NONSPECIFIC DIFFUSE ST-T ABNORMALITIES Electronically Signed On 10-07-2016 12:14:46 EDT by Marylu Tena
[2016-10-07] MEDS: *HR* Enoxaparin 100 MG/ML SYRINGE SQ SCH ×2 (12:50→23:18)
[2016-10-07] MEDS ORDERED: *HR* Warfarin 5 MG TABLET PO ONE (18:00)
[2016-10-08 03:52] LABS: Basophils # 0.1 K/mcL (0.0-0.2); Basophils % 0.7 %; Eosinophils # 0.4 K/mcL (0.0-0.6); Eosinophils % 4.4 %; Hematocrit 40.4 % (37.5-50.1); Hemoglobin 13.1 g/dL (12.9-16.9); Immature Granulocytes % 0.2 % (0-4); Lymphocytes # 1.7 K/mcL (0.6-4.6); Mean Corpuscular HGB Conc 32.4 g/dL (31.6-35.5); Mean Corpuscular Hemoglobin 32.7 pg (28.0-33.3); Mean Corpuscular Volume 100.7 fL (83.0-100.0); Mean Platelet Volume 11.2 fL (9.4-12.4); Monocytes # 0.8 K/mcL (0.0-1.3); Monocytes % 10.2 %; Neutrophils # 5.3 K/mcL (1.6-8.9); Platelet Count 212 K/mcL (140-400); Red Blood Count 4.01 M/mcL (4.19-5.50); Red Cell Distribution Width 13.3 % (11.5-14.5); Segmented Neutrophils % 63.5 %
[2016-10-08 04:01] LABS: INR 1.3; Prothrombin Time 13.9 Seconds (9.4-12.1)
[2016-10-08 04:09] LABS: Alanine Aminotransferase 11 Units/L (0-55); Albumin 3.3 g/dL (3.5-5.0); Alkaline Phosphatase 57 Units/L (38-126); Aspartate Amino Transferase 19 Units/L (5-34); BUN/Creatinine Ratio 14 (6-26); Bilirubin,Total 0.9 mg/dL (0.2-1.2); Blood Urea Nitrogen 18 mg/dL (8-26); Calcium 9.1 mg/dL (8.6-10.8); Carbon Dioxide 28 mEq/L (19-29); Chloride 103 mEq/L (98-109); Globulin 3.3 g/dL (2.4-3.5); Glucose 100 mg/dL (70-99); Osmolality,Calculated 292 (280-300); Potassium 3.7 mEq/L (3.5-4.5); Sodium 140 mEq/L (136-145); Total Protein 6.6 g/dL (6.0-8.3); eGFR For African Americans > 60 (> 60); eGFR For Non-African Americans 53 (> 60)
[2016-10-08] MEDS: Aspirin Enteric Coated 81 MG Tablet PO SCH (07:55)
[2016-10-08] MEDS: Lisinopril 20 MG TABLET PO SCH (07:55)
[2016-10-08] MEDS: GALANTAMINE HBR 24 MG PO SCH ×2 (07:55→15:10)
[2016-10-08] MEDS: Cholecalciferol (D-3) 1,000 UNIT TABLET PO SCH (07:55)
[2016-10-08] MEDS: Isosorbide MONOnitrate (24 HR) 60 MG TAB.ER.24H PO SCH ×2 (07:55→20:43)
[2016-10-08] MEDS: *HR* Amiodarone 200 MG TABLET PO SCH (07:55)
[2016-10-08] MEDS: Finasteride 5 MG TABLET PO SCH (07:55)
[2016-10-08] MEDS: Furosemide 40 MG TABLET PO SCH (07:55)
[2016-10-08] MEDS: Loratadine 10 MG TABLET PO SCH (07:55)
[2016-10-08] MEDS: *HR* Enoxaparin 100 MG/ML SYRINGE SQ SCH ×2 (12:51→23:07)
--- NOTE | 2016-10-08 13:19 | Internal Med Progress Note ---
<JamesFernandez Donnelly - Last Filed: 10/08/16 13:17> Date of Encounter: 10/08/16 Time of Encounter: 08:30 - Assessment and plan (1) Pulmonary embolism Current Visit: Yes Status: Acute Assessment and plan: Confirmed via CTA, secondary to left lower extremity DVT. Patient has been started on Lovenox with bridging to Coumadin. Echocardiogram pending. Asymptomatic at this time. Continue to monitor. Qualifiers: Pulmonary embolism type: other Chronicity: acute Acute cor pulmonale presence: without acute cor pulmonale Qualified Code(s): I26.99 - Other pulmonary embolism without acute cor pulmonale (2) DVT (deep venous thrombosis) Current Visit: Yes Status: Acute Assessment and plan: Preliminary results show positive left lower extremity DVT. Likely source of the patient's PE. Anticoagulation has been initiated with Lovenox bridging to Coumadin. Qualifiers: DVT location: lower extremity Affected thrombotic vein of extremity: tibial Laterality: left Chronicity: acute Qualified Code(s): I82.442 - Acute embolism and thrombosis of left tibial vein (3) Hypothyroid Current Visit: No Status: Chronic Assessment and plan: Continue home medication. Qualifiers: Hypothyroidism type: unspecified Qualified Code(s): E03.9 - Hypothyroidism , unspecified (4) Hypertension Current Visit: Yes Status: Chronic Assessment and plan: Blood pressure under good control. Continue to monitor. Qualifiers: Hypertension type: essential hypertension Qualified Code(s): I10 - Essential (primary) hypertension (5) CKD (chronic kidney disease) stage 3, GFR 30-59 ml/min Current Visit: Yes Status: Chronic Assessment and plan: Previous records reveal that patient likely has chronic kidney disease right on the line between stage II and stage III. Patient has good urine output. We will continue to monitor renal function. (6) DVT prophylaxis Current Visit: No Status: Acute Assessment and plan: Patient is on therapeutic anticoagulation as discussed above. - Subjective Interval history: Patient seen and examined at bedside. Patient states that he feels a little unsteady on his feet but otherwise has no complaints at this time. Denies chest pain, shortness of breath, diaphoresis, syncope. - Constitutional Vitals: Temp Pulse Resp BP Pulse Ox 97.4 F L 58 16 114/61 97 10/08/16 11:52 10/08/16 11:52 10/08/16 11:52 10/08/16 11:52 10/08/16 12:10 General appearance: Present: cooperative, A&O X 3, answers questions appropriately - Respiratory Respiratory exam: Present: CTAB. Absent: rales, rhonchi, wheezes - Cardiovascular Cardiovascular exam: Present: RRR. Absent: gallop, rubs, systolic murmur - GI/Abdominal GI/Abdominal exam: Present: normal bowel sounds, soft. Absent: distended, tenderness - Extremities Exam Extremities exam: Present: warm. Absent: pedal edema, tenderness - Neurological Exam Neurological exam: Present: alert, CN II-XII intact, oriented X3, no focal deficits Internal Medicine: Result - Labs CBC & Chem 7: 10/08/16 03:19 10/08/16 03:19 Labs: Short CBC 10/08/16 Range/Units 03:19 WBC 8.3 (4.3-11.1) K/mcL Hgb 13.1 (12.9-16.9) g/dL Hct 40.4 (37.5-50.1) % Plt Count 212 (140-400) K/mcL Neutrophils # 5.3 (1.6-8.9) K/mcL BMP 10/08/16 03:19 Sodium 140 Potassium 3.7 Chloride 103 Carbon Dioxide 28 BUN 18 Creatinine 1.29 H Glucose 100 H Calcium 9.1 Liver Function 10/08/16 Range/Units 03:19 Total Bilirubin 0.9 (0.2-1.2) mg/dL AST 19 (5-34) Units/L ALT 11 (0-55) Units/L Alkaline Phosphatase 57 (38-126) Units/L Albumin 3.3 L (3.5-5.0) g/dL - ABG Interpretation ABG results: PT/INR, D-dimer PT 13.9 Seconds (9.4-12.1) H 10/08/16 03:19 D-Dimer 2147 ng/mLFEU (0-500) H 10/06/16 10:24 - Impressions Impressions Head CT 10/08/16 10:51 IMPRESSION: Stable CT scan of the head without acute abnormality. This was discussed with Dr. Simmons in person in the Radiology department at 11:11 a.m. on 10/08/2016. D/ / Yossi Taylor MD / Yossi Taylor MD Interpreting Provider: Yossi Taylor MD Consult Discharge Plan - Plan Referrals: Haroon Liriano MD [Primary Care Provider] - (office is having computer problems can not make an appointment at this time) <Sarthak Simmons - Last Filed: 10/08/16 17:32> Date of Encounter: 10/08/16 - Assessment and plan (1) Pulmonary embolism Current Visit: Yes Status: Acute Qualifiers: Pulmonary embolism type: other Chronicity: acute Acute cor pulmonale presence: without acute cor pulmonale Qualified Code(s): I26.99 - Other pulmonary embolism without acute cor pulmonale (2) DVT (deep venous thrombosis) Current Visit: Yes Status: Acute Qualifiers: DVT location: lower extremity Affected thrombotic vein of extremity: tibial Laterality: left Chronicity: acute Qualified Code(s): I82.442 - Acute embolism and thrombosis of left tibial vein (3) Hypertension Current Visit: Yes Status: Chronic Qualifiers: Hypertension type: essential hypertension Qualified Code(s): I10 - Essential (primary) hypertension (4) Hypothyroid Current Visit: No Status: Chronic Qualifiers: Hypothyroidism type: unspecified Qualified Code(s): E03.9 - Hypothyroidism , unspecified (5) REMEDIOS (acute kidney injury) Current Visit: No Status: Resolved (6) DVT prophylaxis Current Visit: No Status: Acute - Constitutional Vitals: Temp Pulse Resp BP Pulse Ox 98 F 60 18 113/60 95 10/08/16 15:28 10/08/16 15:28 10/08/16 15:28 10/08/16 15:28 10/08/16 15:28 Internal Medicine: Result - Labs CBC & Chem 7: 10/08/16 03:19 10/08/16 03:19 Labs: Short CBC 10/08/16 Range/Units 03:19 WBC 8.3 (4.3-11.1) K/mcL Hgb 13.1 (12.9-16.9) g/dL Hct 40.4 (37.5-50.1) % Plt Count 212 (140-400) K/mcL Neutrophils # 5.3 (1.6-8.9) K/mcL BMP 10/08/16 03:19 Sodium 140 Potassium 3.7 Chloride 103 Carbon Dioxide 28 BUN 18 Creatinine 1.29 H Glucose 100 H Calcium 9.1 Liver Function 10/08/16 Range/Units 03:19 Total Bilirubin 0.9 (0.2-1.2) mg/dL AST 19 (5-34) Units/L ALT 11 (0-55) Units/L Alkaline Phosphatase 57 (38-126) Units/L Albumin 3.3 L (3.5-5.0) g/dL - ABG Interpretation ABG results: PT/INR, D-dimer PT 13.9 Seconds (9.4-12.1) H 10/08/16 03:19 D-Dimer 2147 ng/mLFEU (0-500) H 10/06/16 10:24 - Impressions Impressions Head CT 10/08/16 10:51 IMPRESSION: Stable CT scan of the head without acute abnormality. This was discussed with Dr. Simmons in person in the Radiology department at 11:11 a.m. on 10/08/2016. D/ / Yossi Taylor MD / Yossi Taylor MD Interpreting Provider: Yossi Taylor MD - Attending Attestation I examined this patient and my medical decision-making was reviewed with the MACHINE CERAMIC COATER/PA/Advanced Practice Nurse/Resident Physician. I agree with the documented findings, disposition and treatment plan as described except to the extent set forth below.
--- NOTE | 2016-10-08 13:26 | Event Note ---
<Fernandez Ramirez G - Last Filed: 10/08/16 13:23> Date of Encounter: 10/08/16 Time of Encounter: 11:30 Patient was seen again on rounds and on reevaluation the patient had significant slurred speech which was not present when I saw the patient initially had approximately 8:30am. Given that the patient is on anticoagulation for concern was for CVA therefore the patient was taken urgently to CT scan which did not reveal a hemorrhagic stroke. Stroke alert was then called and the patient was transported to the emergency department where he was evaluated by [facility] neurology via teleneurology. They felt that the patient was not a candidate for TPA given that his symptoms seem to be improving and TPA would be risky given his current anticoagulation status. The patient was transferred back to the floor. Echo is pending, will obtain bilateral carotid ultrasound, MRI of the brain. Neurology has been consulted. We will continue with anticoagulation at this time. <Sarthak Simmons P - Last Filed: 10/08/16 17:31> Date of Encounter: 10/08/16 I examined this patient and my medical decision-making was reviewed with the PROJECTION CAMERA OPERATOR/PA/Advanced Practice Nurse/Resident Physician. I agree with the documented findings, disposition and treatment plan as described except to the extent set forth below.
--- NOTE | 2016-10-08 15:02 | Neurology - Consult Note ---
Date of Encounter: 10/08/16 Time of Encounter: 14:10 Assessment and Plan (1) CVA (cerebral vascular accident) Current Visit: No Status: Ruled-out Patient is currently under assessment for CVA-stroke. Patient presented earlier today with dysarthric speech. Patient slurring his words and exhibited confusion. CT head showed no hemorrhage. Patient currently not TPA candidate secondary to treatment for PE and DVT. Patient currently on Coumadin and Lovenox. Plan: MRI brain. More recommendations to follow once imaging is completed. Continue medical management Qualifiers: CVA mechanism: unspecified Qualified Code(s): I63.9 - Cerebral infarction, unspecified History of Present Illness Chief complaint: Slurred speech HPI: Mr. Ralph is a 86 year old male with a past medical history for coronary artery disease, CHF, HLD, HTN who was admitted for PE and DVTs in the setting of near syncope. Patient is undergoing treatment and was placed on Coumadin and Lovenox. On reexamination by hospitalist today patient had acute onset of slurred speech. Concern for hemorrhagic stroke prompted admission to the emergency department. CT head was negative for hemorrhage. Given patient's current medications patient is not a candidate for TPA and has transitioned for further in-hospital medical treatment. Patient complains of difficulty formulating thoughts and denies any problems with his speech but family members at bedside states that speech is a little different though not currently slurring. Past Med Surg Social Fam HX - Past Medical History Attestation: Yes The following information was validated with the patient. Source: patient Medical history: CHF, coronary artery disease, hyperlipidemia, hypertension Psychiatric history: no psych history - Past Surgical History Surgical History: coronary bypass (CABG) - Social History Smoking Status: Never smoker Smokeless Tobacco Status: No Alcohol use: none Drug use: none - Family History Mother Hx Family Cardiac Disorders: No Hx Family Respiratory Disorders: No Hx Family Cancer: No Hx Family GI Disorders: Yes (stomach acid) Hx Family Endocrine Disorder: No Hx Family Neuromuscular Disorders: No Hx Family Neurologic Disorders: No Hx Family HEENT Disorders: No Hx Family Autoimmune Disorders: No Father Hx Family Cardiac Disorders: Yes ([place]) Hx Family Respiratory Disorders: No Hx Family Cancer: No Hx Family GI Disorders: No Hx Family Endocrine Disorder: No Hx Family Neuromuscular Disorders: No Hx Family Neurologic Disorders: No Hx Family HEENT Disorders: No Hx Family Autoimmune Disorders: No Medications and Allergies Amiodarone HCl [Pacerone] 200 mg PO DAILY 02/18/16 [History] Aspirin [Lo-Dose Aspirin EC] 81 mg PO DAILY 02/18/16 [History] Atorvastatin Calcium [Lipitor] 80 mg PO HS 02/18/16 [History] Finasteride [Proscar] 5 mg PO DAILY 02/18/16 [History] Furosemide [Lasix] 40 mg PO DAILY 02/18/16 [History] Levothyroxine Sodium [Levoxyl] 50 mcg PO QAM 02/18/16 [History] Lisinopril [Zestril] 40 mg PO DAILY 02/18/16 [History] Nitroglycerin [Nitrostat] 0.4 mg SL Q5M PRN 02/18/16 [History] Oxybutynin Chloride [Ditropan Xl] 10 mg PO HS 02/18/16 [History] Potassium Chloride [Klor-Con Sprinkle] 20 meq PO BID 02/18/16 [History] Cholecalciferol (Vitamin D3) [Vitamin D3] 2,000 unit PO DAILY 06/29/16 [History] Isosorbide MONOnitrate (24 HR) [Imdur] 60 mg PO BID 06/29/16 [History] Galantamine HBr [Razadyne ER] 24 mg PO DAILY 09/01/16 [History] Loratadine [Allergy Relief] 10 mg PO DAILY 09/01/16 [History] ALPRAZolam [Xanax 0.25 MG Tablet] 0.25 mg PO DAILY PRN #10 tablet 09/05/16 [Rx] Meclizine [Antivert] 12.5 mg PO TID PRN tablet 09/05/16 [Rx] Tramadol HCl [Ultram] 50 mg PO TID PRN #14 tab 09/05/16 [Rx] Vitamin E Acid Succinate [Vitamin E] 400 units PO DAILY 10/06/16 [History] Allergies acetaminophen [From Percocet] Adverse Reaction (Verified 10/06/16 09:29) Hallucinating Oxycodone [From Percocet] Adverse Reaction (Verified 10/06/16 09:29) Hallucinating All Systems: A 10-system review of systems was performed and is negative for pertinent findings except as documented above in the HPI. Review of Systems: Patient denies headache, dizziness, vision changes, vertigo, tinnitus, upper extremity weakness, new lower extremity weakness, chest pain or pain anywhere, numbness and tingling in extremities or other paresthesias, bowel or urinary incontinence - Constitutional Constitutional ROS IM: weakness - Neurological Neurological ROS: abnormal speech, confusion Physical Examination - Vital Signs Vital Signs: Initial Vital Signs Temp Pulse Resp BP Pulse Ox 99.0 F 68 16 198/89 97 10/06/16 09:29 10/06/16 09:29 10/06/16 09:29 10/06/16 09:29 10/06/16 09:29 - Constitutional General appearance: comfortable - Neurologic Sensorimotor examination: intact Detailed motor examination: grossly full strength in all extremities, full strength in all major muscle groups Motor examination - right side: 5/5: deltoids, biceps, triceps, wrist flexion, wrist extension, charter boat captain, hip flexors, tibialis Anterior, quadriceps, toe extension (EHL), plantarflexion Motor examination - left side: 5/5: deltoids, biceps, triceps, wrist flexion, wrist extension, hip flexors, charter boat captain, quadriceps, tibialis Anterior, toe extension (EHL), plantarflexion Detailed sensory examination: intact, light touch Reflex and gait examination: intact Reflexes: Biceps: 2+, Triceps: 2+, Brachioradialis: 2+, Patella: 2+, Achilles: 2 + Mental Status Examination: awake, alert, oriented to person, oriented to place, oriented to time, follows commands appropriately, answers questions appropriately, no agnosia, no aproxia, expressive aphasia Cranial nerve examination: PERRL, EOMI, visual owens intact, corneal reflexes brisk symmetrically, sensory to face intact, mastication intact, no facial asymmetry is present, no dysarthria, hearing is intact symmetrically, soft palate elevates bilaterally upon phonation, gag reflex intact, flexes SCM and trapezius muscles symmetrically with full power, tongue protrudes midline, no atrophy or facial fasiculations present Cerebellar examination: no dysmetria, performs finger to nose and heel to tripathi symmetrically without ataxia, no gait ataxia, no truncal ataxia, no difficulty with rapid alternating movements Ocular dysmotility: gaze-evoked nystagmus (Right beating nystagmus) Results - Laboratory Findings CBC and BMP: 10/08/16 03:19 10/08/16 03:19 Abnormal lab findings: Abnormal lab results RBC 4.01 M/mcL (4.19-5.50) L 10/08/16 03:19 MCV 100.7 fL (83.0-100.0) H 10/08/16 03:19 PT 13.9 Seconds (9.4-12.1) H 10/08/16 03:19 D-Dimer 2147 ng/mLFEU (0-500) H 10/06/16 10:24 Creatinine 1.29 mg/dL (0.72-1.25) H 10/08/16 03:19 Est GFR (Non-Af Amer) 53 (> 60) L 10/08/16 03:19 Glucose 100 mg/dL (70-99) H 10/08/16 03:19 POC Glucose 95 (58-89) H 10/06/16 09:36 B-Natriuretic Peptide 367 pg/mL (0-100) H 10/08/16 03:19 Albumin 3.3 g/dL (3.5-5.0) L 10/08/16 03:19 Albumin/Globulin Ratio 1.0 (1.1-2.2) L 10/08/16 03:19 - Diagnostic Findings Additional findings: Chest X-Ray 10/06/16 09:33 IMPRESSION: Coarse parenchymal markings likely representing chronic interstitial lung disease. D/ / Kelvin Ca MD / Kelvin Ca MD Interpreting Provider: Kelvin Ca MD Chest CTA 10/06/16 10:54 IMPRESSION: 1. Acute pulmonary thromboembolus within the right lower lobe. 2. UIP pattern of IPF. Critical results were called by Dr. Boston Anaya MD to Leon Lock on 10/06/2016 at 11:36. D/ / Boston Anaya MD / Boston Anaya MD Interpreting Provider: Boston Anaya MD Head CT 10/08/16 10:51 IMPRESSION: Stable CT scan of the head without acute abnormality. This was discussed with Dr. Simmons in person in the Radiology department at 11:11 a.m. on 10/08/2016. D/ / Yossi Taylor MD / Yossi Taylor MD Interpreting Provider: Yossi Taylor MD Consult Discharge Plan - Plan Referrals: Haroon Liriano MD [Primary Care Provider] - (office is having computer problems can not make an appointment at this time)
--- NOTE | 2016-10-08 15:39 | Venous Imaging Report ---
LE Venous Duplex Patient Name:Kelvin Ralph Order Number:[id number] Procedure Date:10/06/2016 Date:1930ge:86 yrs Gender:Male Location:[facility] ED Room #: ER24 Family And Divorce Legal Assistant:Yudy Stone Referring MD:Leon Lock DO crossbar switch adjuster:Haroon Liriano MD Reading MD:Terry Gómez MD Primary Indications:Swelling, near syncope Secondary Indications: Risk Factors Yes/No Anticoagulants Yes Recent fall Yes Impressions: Acute deep venous thrombosis is present in the left posterior tibial vein. Normal left lower extremity suprficial venous exam. Normal contralateral common femoral vein. Recommendations: After imaging the patient returned to their room. Gave vascular preliminary results to Leon Lock DO in emergency department on 10/06/2016 at 12:07. Test completed on 10/06/2016 at 11:59:00 am. Critical findings reported to Leon Lock DO in person at 12:07:00 pm on 10/06/2016 by Yudy Stone. Findings Venous Duplex Results: Right: Venous imaging of the lower extremity reveals full patency and normal vessel compressibility of the right common femoral. Doppler signals in the evaluated veins were normal. Left: Venous imaging of the lower extremity reveals full patency and normal vessel compressibility of the left distal iliac, left common femoral, left superficial femoral, left popliteal, left peroneal, left proximal great saphenous and left lesser saphenous. Doppler signals in the evaluated veins were normal. The left posterior tibial demonstrates an incompressible vein. Flow was absent and it did not augment. The left mid great saphenous has been striped. Prior Study: No prior study available for comparison. Lower Extremity Venous Duplex Side Vein Compress Spontaneous Flow Augment Diameter (cm) Depth (cm) Left Distal Iliac Normal yes Phasic yes Left Common Femoral Normal yes Phasic yes Left Superficial Femoral Normal yes Phasic yes Left Popliteal Normal yes Phasic yes Left Posterior Tibial None no Absent no Left Peroneal Normal yes Phasic yes Left Great Saphenous Normal yes Phasic yes Left Lesser Saphenous Normal yes Phasic yes Right Common Femoral Normal yes Phasic yes Updated by Terry Gómez MD on 10/08/2016 3:33:55 PM electronically signed on 10/08/2016 3:34:16 PM with status of Final
[2016-10-08] MEDS ORDERED: *HR* Warfarin 3 MG TABLET PO ONE (18:00)
--- NOTE | 2016-10-08 19:27 | Neurology - Consult Note ---
Date of Encounter: 10/08/16 Time of Encounter: 19:22 Assessment and Plan (1) TIA (transient ischemic attack) Current Visit: Yes Status: Acute Patient developed an episode of TIA characterized by slurred speech without focal weakness lasting 1-2 hours without focal muscle weakness. Totally resolved. This patient is currently being treated with coumadin and this AM INR was 1.3. He is also on Aspirin 81mg daily. Differential consideration could be TIA, confusion secondary to renal insufficiency, or less likely partial seizures. Agree with getting an MRI of brain. EEG in AM. In terms of treatment, he is already on coumadin and aspirin and would simply continue on those. Please continue medical and supportive care Qualifiers: Transient cerebral ischemia type: unspecified Qualified Code(s): G45.9 - Transient cerebral ischemic attack, unspecified History of Present Illness Chief complaint: slurred speech and confusion HPI: Mr. Ralph is a 86 year old male with PMH significant for HTN, spondylosis, squamous cell carcinoma of nose, stomach ulcers, artificial joints who developed acute dizziness two days ago and was found to have PE. Patient was started coumadin. This AM patient developed slurred speech lasting about 1-2 hours. He was trying to get up per medical staff. Called Tele stroke teat at [facility] and he was not considered tPA due to being treated with coumadin. The symptoms resolved. Patient has few episodes of dizziness in the past. He does have some mild cognitive impairment with word finding difficulty. Past Med Surg Social Fam HX - Past Medical History Medical history: CHF, coronary artery disease, hyperlipidemia, hypertension Psychiatric history: no psych history - Past Surgical History Surgical History: coronary bypass (CABG) - Social History Smoking Status: Never smoker Smokeless Tobacco Status: No Alcohol use: none Drug use: none - Family History Mother Hx Family Cardiac Disorders: No Hx Family Respiratory Disorders: No Hx Family Cancer: No Hx Family GI Disorders: Yes (stomach acid) Hx Family Endocrine Disorder: No Hx Family Neuromuscular Disorders: No Hx Family Neurologic Disorders: No Hx Family HEENT Disorders: No Hx Family Autoimmune Disorders: No Father Hx Family Cardiac Disorders: Yes (SD) Hx Family Respiratory Disorders: No Hx Family Cancer: No Hx Family GI Disorders: No Hx Family Endocrine Disorder: No Hx Family Neuromuscular Disorders: No Hx Family Neurologic Disorders: No Hx Family HEENT Disorders: No Hx Family Autoimmune Disorders: No Medications and Allergies Amiodarone HCl [Pacerone] 200 mg PO DAILY 02/18/16 [History] Aspirin [Lo-Dose Aspirin EC] 81 mg PO DAILY 02/18/16 [History] Atorvastatin Calcium [Lipitor] 80 mg PO HS 02/18/16 [History] Finasteride [Proscar] 5 mg PO DAILY 02/18/16 [History] Furosemide [Lasix] 40 mg PO DAILY 02/18/16 [History] Levothyroxine Sodium [Levoxyl] 50 mcg PO QAM 02/18/16 [History] Lisinopril [Zestril] 40 mg PO DAILY 02/18/16 [History] Nitroglycerin [Nitrostat] 0.4 mg SL Q5M PRN 02/18/16 [History] Oxybutynin Chloride [Ditropan Xl] 10 mg PO HS 02/18/16 [History] Potassium Chloride [Klor-Con Sprinkle] 20 meq PO BID 02/18/16 [History] Cholecalciferol (Vitamin D3) [Vitamin D3] 2,000 unit PO DAILY 06/29/16 [History] Isosorbide MONOnitrate (24 HR) [Imdur] 60 mg PO BID 06/29/16 [History] Galantamine HBr [Razadyne ER] 24 mg PO DAILY 09/01/16 [History] Loratadine [Allergy Relief] 10 mg PO DAILY 09/01/16 [History] ALPRAZolam [Xanax 0.25 MG Tablet] 0.25 mg PO DAILY PRN #10 tablet 09/05/16 [Rx] Meclizine [Antivert] 12.5 mg PO TID PRN tablet 09/05/16 [Rx] Tramadol HCl [Ultram] 50 mg PO TID PRN #14 tab 09/05/16 [Rx] Vitamin E Acid Succinate [Vitamin E] 400 units PO DAILY 10/06/16 [History] Allergies acetaminophen [From Percocet] Adverse Reaction (Verified 10/06/16 09:29) Hallucinating Oxycodone [From Percocet] Adverse Reaction (Verified 10/06/16 09:29) Hallucinating All Systems: A 10-system review of systems was performed and is negative for pertinent findings except as documented above in the HPI. Physical Examination - Vital Signs Vital Signs: Initial Vital Signs Temp Pulse Resp BP Pulse Ox 99.0 F 68 16 198/89 97 10/06/16 09:29 10/06/16 09:29 10/06/16 09:29 10/06/16 09:29 10/06/16 09:29 - Constitutional General appearance: comfortable - Neurologic Sensorimotor examination: intact Detailed motor examination: grossly full strength in all extremities Motor examination - right side: 5/5: deltoids, biceps, triceps, wrist flexion, wrist extension, checkering machine operator, hip flexors, tibialis Anterior, quadriceps, toe extension (EHL), plantarflexion Motor examination - left side: 5/5: deltoids, biceps, triceps, wrist flexion, wrist extension, hip flexors, checkering machine operator, quadriceps, tibialis Anterior, toe extension (EHL), plantarflexion Detailed sensory examination: other (NOne) Reflexes: Biceps: 1+, Triceps: 1+, Brachioradialis: 1+, Patella: 1+, Achilles: 1 + Mental Status Examination: awake, alert, oriented to person, oriented to place, oriented to time, follows commands appropriately, answers questions appropriately, no agnosia, no aphasia, no aproxia Cranial nerve examination: PERRL, EOMI, visual owens intact, corneal reflexes brisk symmetrically, sensory to face intact, mastication intact, no facial asymmetry is present, no dysarthria, hearing is intact symmetrically, soft palate elevates bilaterally upon phonation, gag reflex intact, flexes SCM and trapezius muscles symmetrically with full power, tongue protrudes midline, no atrophy or facial fasiculations present, taste anterior 2/3 tongue diminished Results - Laboratory Findings CBC and BMP: 10/08/16 03:19 10/08/16 03:19 Abnormal lab findings: Abnormal lab results RBC 4.01 M/mcL (4.19-5.50) L 10/08/16 03:19 MCV 100.7 fL (83.0-100.0) H 10/08/16 03:19 PT 13.9 Seconds (9.4-12.1) H 10/08/16 03:19 D-Dimer 2147 ng/mLFEU (0-500) H 10/06/16 10:24 Creatinine 1.29 mg/dL (0.72-1.25) H 10/08/16 03:19 Est GFR (Non-Af Amer) 53 (> 60) L 10/08/16 03:19 Glucose 100 mg/dL (70-99) H 10/08/16 03:19 POC Glucose 95 (58-89) H 10/06/16 09:36 B-Natriuretic Peptide 367 pg/mL (0-100) H 10/08/16 03:19 Albumin 3.3 g/dL (3.5-5.0) L 10/08/16 03:19 Albumin/Globulin Ratio 1.0 (1.1-2.2) L 10/08/16 03:19 Consult Discharge Plan - Plan Referrals: Haroon Liriano MD [Primary Care Provider] - (office is having computer problems can not make an appointment at this time)
[2016-10-09] MEDS ORDERED: Mag Hydrox/Al Hydrox/Simeth 30 ML UDC PO STA (04:00)
[2016-10-09 04:58] LABS: Basophils # 0.1 K/mcL (0.0-0.2); Basophils % 0.5 %; Eosinophils # 0.4 K/mcL (0.0-0.6); Eosinophils % 4.5 %; Hematocrit 37.7 % (37.5-50.1); Hemoglobin 12.5 g/dL (12.9-16.9); Immature Granulocytes % 0.4 % (0-4); Lymphocytes # 1.9 K/mcL (0.6-4.6); Mean Corpuscular HGB Conc 33.2 g/dL (31.6-35.5); Mean Corpuscular Hemoglobin 33.6 pg (28.0-33.3); Mean Corpuscular Volume 101.3 fL (83.0-100.0); Mean Platelet Volume 11.1 fL (9.4-12.4); Monocytes % 10.6 %; Neutrophils # 6.3 K/mcL (1.6-8.9); Platelet Count 198 K/mcL (140-400); Red Blood Count 3.72 M/mcL (4.19-5.50); Red Cell Distribution Width 13.8 % (11.5-14.5)
[2016-10-09 05:04] LABS: INR 1.3; Prothrombin Time 14.1 Seconds (9.4-12.1)
[2016-10-09 05:17] LABS: BUN/Creatinine Ratio 17 (6-26); Blood Urea Nitrogen 23 mg/dL (8-26); Carbon Dioxide 26 mEq/L (19-29); Chloride 107 mEq/L (98-109); Chol/HDL Ratio 4.7 (0-4.9); Cholesterol 128 mg/dL (< 200); Glucose 102 mg/dL (70-99); HDL Cholesterol 27 mg/dL (40-59); LDL Cholesterol,Calculated 85 mg/dL (0-99); Osmolality,Calculated 296 (280-300); Sodium 141 mEq/L (136-145); Triglycerides 79 mg/dL (< 150); eGFR For African Americans > 60 (> 60); eGFR For Non-African Americans 50 (> 60)
[2016-10-09 07:15] VITALS: BP 168/87
[2016-10-09] MEDS: Aspirin Enteric Coated 81 MG Tablet PO SCH (08:29)
[2016-10-09] MEDS: *HR* Amiodarone 200 MG TABLET PO SCH (08:29)
[2016-10-09] MEDS: Lisinopril 20 MG TABLET PO SCH (08:29)
[2016-10-09] MEDS: Loratadine 10 MG TABLET PO SCH (08:29)
[2016-10-09] MEDS: Finasteride 5 MG TABLET PO SCH (08:29)
[2016-10-09] MEDS: Cholecalciferol (D-3) 1,000 UNIT TABLET PO SCH (08:29)
[2016-10-09] MEDS: GALANTAMINE HBR 24 MG PO SCH (08:31)
[2016-10-09] MEDS: Isosorbide MONOnitrate (24 HR) 60 MG TAB.ER.24H PO SCH (08:33)
[2016-10-09] MEDS: *HR* Enoxaparin 100 MG/ML SYRINGE SQ SCH (12:31)
--- NOTE | 2016-10-09 12:44 | Discharge Summary ---
<Fernandez Ramirez - Last Filed: 10/09/16 13:10> Date of Encounter: 10/09/16 Time of Encounter: 12:41 - Discharge Diagnosis (1) Pulmonary embolism Priority: Primary Status: Acute Qualifiers: Pulmonary embolism type: other Chronicity: acute Acute cor pulmonale presence: without acute cor pulmonale Qualified Code(s): I26.99 - Other pulmonary embolism without acute cor pulmonale (2) DVT (deep venous thrombosis) Priority: Primary Status: Acute Qualifiers: DVT location: lower extremity Affected thrombotic vein of extremity: tibial Chronicity: acute Laterality: left Qualified Code(s): I82.442 - Acute embolism and thrombosis of left tibial vein (3) Hypothyroid Priority: Secondary Status: Chronic Qualifiers: Hypothyroidism type: unspecified Qualified Code(s): E03.9 - Hypothyroidism , unspecified (4) Hypertension Priority: Secondary Status: Chronic Qualifiers: Hypertension type: essential hypertension Qualified Code(s): I10 - Essential (primary) hypertension (5) CKD (chronic kidney disease) stage 3, GFR 30-59 ml/min Priority: Secondary Status: Chronic (6) DVT prophylaxis Priority: Secondary Status: Acute (7) TIA (transient ischemic attack) Priority: Primary Status: Acute Qualifiers: Transient cerebral ischemia type: unspecified Qualified Code(s): G45.9 - Transient cerebral ischemic attack, unspecified - Discharge Medications Prescriptions: Enoxaparin [Lovenox] 80 mg SQ Q12HR #60 syr Warfarin [Coumadin] 3 mg PO 1800 #30 tablet Home Medications: Amiodarone HCl [Pacerone] 200 mg PO DAILY 02/18/16 [History] Aspirin [Lo-Dose Aspirin EC] 81 mg PO DAILY 02/18/16 [History] Atorvastatin Calcium [Lipitor] 80 mg PO HS 02/18/16 [History] Finasteride [Proscar] 5 mg PO DAILY 02/18/16 [History] Furosemide [Lasix] 40 mg PO DAILY 02/18/16 [History] Levothyroxine Sodium [Levoxyl] 50 mcg PO QAM 02/18/16 [History] Lisinopril [Zestril] 40 mg PO DAILY 02/18/16 [History] Nitroglycerin [Nitrostat] 0.4 mg SL Q5M PRN 02/18/16 [History] Oxybutynin Chloride [Ditropan Xl] 10 mg PO HS 02/18/16 [History] Potassium Chloride [Klor-Con Sprinkle] 20 meq PO BID 02/18/16 [History] Cholecalciferol (Vitamin D3) [Vitamin D3] 2,000 unit PO DAILY 06/29/16 [History] Isosorbide MONOnitrate (24 HR) [Imdur] 60 mg PO BID 06/29/16 [History] Galantamine HBr [Razadyne ER] 24 mg PO DAILY 09/01/16 [History] Loratadine [Allergy Relief] 10 mg PO DAILY 09/01/16 [History] ALPRAZolam [Xanax 0.25 MG Tablet] 0.25 mg PO DAILY PRN #10 tablet 09/05/16 [Rx] Meclizine [Antivert] 12.5 mg PO TID PRN tablet 09/05/16 [Rx] Tramadol HCl [Ultram] 50 mg PO TID PRN #14 tab 09/05/16 [Rx] Vitamin E Acid Succinate [Vitamin E] 400 units PO DAILY 10/06/16 [History] Enoxaparin [Lovenox] 80 mg SQ Q12HR #60 syr 10/09/16 [Rx] Warfarin [Coumadin] 3 mg PO 1800 #30 tablet 10/09/16 [Rx] Allergies/Adverse Reactions: Allergies acetaminophen [From Percocet] Adverse Reaction (Verified 10/06/16 09:29) Hallucinating Oxycodone [From Percocet] Adverse Reaction (Verified 10/06/16 09:29) Hallucinating Procedures/tests Complete & Pending: Procedures Performed prior 72 hours Category Date Time Status CT head/brain wo con [CT] Stat Cat Scan 10/08/16 10:51 Completed MR head/brain wo con [MR] Routine MRI 10/08/16 11:47 Completed EV carotid duplex imaging BI Routine Y 10/08/16 11:48 Completed EV echocardiogram Routine Y 10/07/16 15:13 Completed Date of admission: 10/07/16 12:08 Primary care physician: Haroon Liriano MD Consults: 10/08/16 08:36 Consult to Manager Support Services [CONS] Routine Reason for SW Consult: Patient wants rehab 10/08/16 12:51 Consult to Neurology [CONS] Routine Consulting Provider: [facility] Reason for Consult: Slurred Speech Call Completed: Yes 10/09/16 12:34 Consult to Interpret Exam [CONS] Routine Consulting Provider: Myriam Delarosa Consult to Interpret Exam: Interpret EEG Discharging clinician: Fernandez Ramirez Anticipated date of discharge: 10/09/16 - Patient Status Disposition: Transfer Inpatient Rehab Fac Condition: Undetermined Functional capacity at discharge: uses cane/walker Overall status at discharge: patient is progressing back to baseline - Discharge Instructions Instructions: Warfarin (By mouth), Enoxaparin (Injection), Pulmonary Embolism ( DC), Deep Venous Thrombosis (GEN) Follow Up With: Haroon Liriano MD [Primary Care Provider] - 10/18/16 10:30 am () Marquez Ponce MD [Partnered Physician] - 10/12/16 2:00 pm Additional Instructions: Please follow-up with your primary care physician as scheduled. Please follow up with hematology/oncology on Saturday, October 12. Please have your INR drawn prior to this appointment. Please restart your home medications. Please continue with Lovenox injections twice a day until directed to stop. Please return for any new or worsening symptoms. - Diet and Activity Activity: as per physical therapy Diet: diabetic diet, low salt diet Interval History: Patient seen and examined at bedside. Patient states he feels pretty good today. Patient has no complaints at this time. He denies fever, chills, shortness of breath, weakness, numbness, tingling, difficulty speaking or swallowing. Hospital course: Mr. Ralph is a 86 year old male with history of coronary artery disease, CHF presented with dizziness and syncope. Patient also had left lower extremity swelling. Workup revealed left lower extremity DVT and pulmonary embolism. The patient was initiated on Lovenox bridging to Coumadin. The plan was to discharge the patient yesterday however the patient had acute onset episode of slurred speech. Stroke alert was called and head CT, MRI brain were negative. Patient was seen by neurology who completed workup with EEG which was unremarkable. Patient felt weak and requested to go to rehabilitation so we will discharge patient stable condition to rehabilitation. - Time Spent with Patient Total time spent providing and/or coordinating discharge services: - Constitutional Vitals: Temp Pulse Resp BP Pulse Ox 97.6 F 62 12 168/87 98 10/09/16 07:00 10/09/16 07:00 10/09/16 07:00 10/09/16 07:00 10/09/16 07:00 General appearance: Present: cooperative, A&O X 3, answers questions appropriately - Respiratory Respiratory exam: Present: CTAB. Absent: rales, rhonchi, wheezes - Cardiovascular Cardiovascular exam: Present: RRR. Absent: gallop, rubs, systolic murmur - GI/Abdominal GI/Abdominal exam: Present: normal bowel sounds, soft. Absent: distended, tenderness - Extremities Exam Additional comments: Left lower extremity is swollen and mildly erythematous compared to the right lower extremity. - Neurological Exam Neurological exam: Present: alert, CN II-XII intact, oriented X3, no focal deficits. Absent: facial droop, speech deficit <Iris,Sarthak P - Last Filed: 10/09/16 17:37> Date of Encounter: 10/09/16 - Discharge Diagnosis (1) Pulmonary embolism Status: Acute Qualifiers: Pulmonary embolism type: other Chronicity: acute Acute cor pulmonale presence: without acute cor pulmonale Qualified Code(s): I26.99 - Other pulmonary embolism without acute cor pulmonale (2) DVT (deep venous thrombosis) Status: Acute Qualifiers: DVT location: lower extremity Affected thrombotic vein of extremity: tibial Chronicity: acute Laterality: left Qualified Code(s): I82.442 - Acute embolism and thrombosis of left tibial vein (3) Hypertension Status: Chronic Qualifiers: Hypertension type: essential hypertension Qualified Code(s): I10 - Essential (primary) hypertension (4) Hypothyroid Status: Chronic Qualifiers: Hypothyroidism type: unspecified Qualified Code(s): E03.9 - Hypothyroidism , unspecified (5) REMEDIOS (acute kidney injury) Status: Resolved (6) DVT prophylaxis Status: Acute Procedures/tests Complete & Pending: Procedures Performed prior 72 hours Category Date Time Status CT head/brain wo con [CT] Stat Cat Scan 10/08/16 10:51 Completed MR head/brain wo con [MR] Routine MRI 10/08/16 11:47 Completed EV carotid duplex imaging BI Routine Y 10/08/16 11:48 Completed EV echocardiogram Routine Y 10/07/16 15:13 Completed Date of admission: 10/07/16 12:08 Primary care physician: Haroon Liriano MD Consults: 10/08/16 08:36 Consult to Manager Support Services [CONS] Routine Reason for SW Consult: Patient wants rehab 10/08/16 12:51 Consult to Neurology [CONS] Routine Consulting Provider: [facility] Reason for Consult: Slurred Speech Call Completed: Yes 10/09/16 12:34 Consult to Interpret Exam [CONS] Routine Consulting Provider: Myriam Delarosa Consult to Interpret Exam: Interpret EEG Hospital course: Mr. Ralph is a 86 year old male - Time Spent with Patient Total time spent providing and/or coordinating discharge services: - Constitutional Vitals: Temp Pulse Resp BP Pulse Ox 97.6 F 62 12 168/87 98 10/09/16 07:00 10/09/16 07:00 10/09/16 07:00 10/09/16 07:00 10/09/16 07:00 - Attending Attestation I examined this patient and my medical decision-making was reviewed with the SALES PROGRAM MANAGER/PA/Advanced Practice Nurse/Resident Physician. I agree with the documented findings, disposition and treatment plan as described except to the extent set forth below.
--- NOTE | 2016-10-09 12:59 | Physician Discharge Referral ---
<Fernandez Ramirez - Last Filed: 10/09/16 12:57> ExtendedCare Referral Info Transfer To: [facility] Provider in Charge after Transfer: PCP Institutional Level of Care: Skilled - Diagnosis (1) Pulmonary embolism Priority: Primary Status: Acute (2) DVT (deep venous thrombosis) Priority: Primary Status: Acute (3) Hypothyroid Priority: Secondary Status: Chronic (4) Hypertension Priority: Secondary Status: Chronic (5) CKD (chronic kidney disease) stage 3, GFR 30-59 ml/min Priority: Secondary Status: Chronic (6) DVT prophylaxis Priority: Secondary Status: Acute (7) TIA (transient ischemic attack) Priority: Primary Status: Acute Prognosis: Fair Aware of Diagnosis: Patient Aware of Prognosis: Patient - Transfer Medications Prescriptions: Enoxaparin [Lovenox] 80 mg SQ Q12HR #60 syr Warfarin [Coumadin] 3 mg PO 1800 #30 tablet Home Medications: Amiodarone HCl [Pacerone] 200 mg PO DAILY 02/18/16 [History] Aspirin [Lo-Dose Aspirin EC] 81 mg PO DAILY 02/18/16 [History] Atorvastatin Calcium [Lipitor] 80 mg PO HS 02/18/16 [History] Finasteride [Proscar] 5 mg PO DAILY 02/18/16 [History] Furosemide [Lasix] 40 mg PO DAILY 02/18/16 [History] Levothyroxine Sodium [Levoxyl] 50 mcg PO QAM 02/18/16 [History] Lisinopril [Zestril] 40 mg PO DAILY 02/18/16 [History] Nitroglycerin [Nitrostat] 0.4 mg SL Q5M PRN 02/18/16 [History] Oxybutynin Chloride [Ditropan Xl] 10 mg PO HS 02/18/16 [History] Potassium Chloride [Klor-Con Sprinkle] 20 meq PO BID 02/18/16 [History] Cholecalciferol (Vitamin D3) [Vitamin D3] 2,000 unit PO DAILY 06/29/16 [History] Isosorbide MONOnitrate (24 HR) [Imdur] 60 mg PO BID 06/29/16 [History] Galantamine HBr [Razadyne ER] 24 mg PO DAILY 09/01/16 [History] Loratadine [Allergy Relief] 10 mg PO DAILY 09/01/16 [History] ALPRAZolam [Xanax 0.25 MG Tablet] 0.25 mg PO DAILY PRN #10 tablet 09/05/16 [Rx] Meclizine [Antivert] 12.5 mg PO TID PRN tablet 09/05/16 [Rx] Tramadol HCl [Ultram] 50 mg PO TID PRN #14 tab 09/05/16 [Rx] Vitamin E Acid Succinate [Vitamin E] 400 units PO DAILY 10/06/16 [History] Enoxaparin [Lovenox] 80 mg SQ Q12HR #60 syr 10/09/16 [Rx] Warfarin [Coumadin] 3 mg PO 1800 #30 tablet 10/09/16 [Rx] Allergies/Adverse Reactions: Allergies acetaminophen [From Percocet] Adverse Reaction (Verified 10/06/16 09:29) Hallucinating Oxycodone [From Percocet] Adverse Reaction (Verified 10/06/16 09:29) Hallucinating - Respiratory Orders Smoking Cessation: Smoking cessation has been advised. For more information, call the [email or web address] Line at 2-331-IRHY-NOW. - Lab Orders Lab Orders: Other (include drug levels w/frequency) (PT/INR on Saturday) - Advance Directives Code Status: Full Code - Mobility Orders Ambulate (with assist) - Rehabiliation Orders Rehab Potential: Fair Rehab Orders: Evaluation for Physical Therapy, Evaluation for Occupational Therapy - Diet Orders No Added Salt (EVELYN), Cardiac CERTIFICATION: I certify that the transfer of the above named patient to an Extended Care Facility is necessary for the continuing treatment of the diagnosis listed. The above information is true and accurate reflection of patient's current condition. Confidential - Redisclosure prohibited without a patient's written consent. <Sarthak Simmons P - Last Filed: 10/09/16 17:38> - Diagnosis (1) Pulmonary embolism Status: Acute (2) DVT (deep venous thrombosis) Status: Acute (3) Hypertension Status: Chronic (4) Hypothyroid Status: Chronic (5) REMEDIOS (acute kidney injury) Status: Resolved (6) DVT prophylaxis Status: Acute - Respiratory Orders Smoking Cessation: Smoking cessation has been advised. For more information, call the [email or web address] Line at [phone]-FFRANOW. CERTIFICATION: I certify that the transfer of the above named patient to an Extended Care Facility is necessary for the continuing treatment of the diagnosis listed. The above information is true and accurate reflection of patient's current condition. Confidential - Redisclosure prohibited without a patient's written consent.
--- NOTE | 2016-10-09 13:42 | EEG/EMG/Oth Biometrics Report ---
EEG Procedure Report Date of procedure: 10/09/16 EEG Procedure: Routine EEG Procedure Note: This EEG was acquired with standard international 1020 system with EKG recording. The background EEG activity was characterized by the presence of posterior dominant alpha rhythm with the best frequency up to 8 Hz.. The background activity was reactive to eye openings. Sleep stages were characterized by the presence of background fragmentation, vertex waves, K complexes, and sleep spindles. There are no electrographic seizures identified during this tracing. There are no epileptiform discharges and focal slowing noted during this recording. Photic stimulation produced no abnormalities. Hyperventilation procedure was not performed EKG tracing showed no significant cardiac dysrhythmia. Impression: This is essentially a normal awake and asleep EEG to this age group. Clinical Correlation: Normal EEGs, however, do not exclude epilepsy. Clinical correlation advised.
[2016-10-09] MEDS ORDERED: *HR* Warfarin 5 MG TABLET PO ONE (18:00)
--- NOTE | 2016-10-09 19:35 | Carotid Imaging Report ---
Carotid Duplex Patient Name:Kelvin Ralph Order Number:[id number] Procedure Date:10/08/2016 Date:1930ge:86 yrs Gender:Male Lt BP:114 / 61 mmHg Rt.BP:113 / 60 mmHgHeart Rate: Location:[facility] Room #: 2NE31 Corn Lab Technician:Jeremy Li Referring MD:Fernandez Ramirez DO cut out machine operator:None Reading MD:Haroon Rodriguez MD Primary Indications:Slurred speech Risk Factors Yes/No Hypertension Yes Hypercholesterolemia Yes Hx of CVA Yes Hx of CAD/PTCA Yes Impressions: Findings: Right proximal ICA has a moderate, 40-59% stenosis.Findings: Left proximal ICA has a severe, 60-79% stenosis. Recommendations: Risk Factor Modification, Medical Therapy, and Follow up exam 12 months. Findings Carotid Duplex: Right: There is nonstenotic plaque in the right mid common carotid artery. There is smooth heterogeneous plaque. There is nonstenotic plaque in the right distal common carotid artery. There is smooth heterogeneous plaque. There is nonstenotic plaque in the right bifurcation. There is smooth heterogeneous plaque. There is 40-59% stenosis in the right proximal internal carotid artery. There is smooth homogeneous plaque. There is 40-59% stenosis in the right mid internal carotid artery. There is smooth homogeneous plaque. There is 40-59% stenosis in the right distal internal carotid artery. There is smooth homogeneous plaque. Left: There is nonstenotic plaque in the left mid common carotid artery. There is smooth homogeneous plaque. There is nonstenotic plaque in the left distal common carotid artery. There is smooth homogeneous plaque. There is nonstenotic plaque in the left bifurcation. There is smooth homogeneous plaque. There is 60-79% stenosis in the left proximal internal carotid artery. There is smooth homogeneous plaque. There is 40-59% stenosis in the left mid internal carotid artery. There is smooth homogeneous plaque. There is nonstenotic plaque in the left eca. There is irregular homogeneous plaque. Carotid Results Right PSV EDV Assessment Proximal CCA 83 20 Mid CCA 64 11 Non Stenotic Plaque Distal CCA 110 25 Non Stenotic Plaque Bifurcation 86 25 Non Stenotic Plaque Proximal ICA 112 22 40-59% stenosis Mid ICA 120 19 40-59% stenosis Distal ICA 141 16 40-59% stenosis ECA 106 0 Turbulent flow Vertebral Artery 48 8 Antegrade Flow Left PSV EDV Assessment ECA 89 0 Non Stenotic Plaque Vertebral Artery 45 9 Antegrade Flow Proximal CCA 99 10 Normal Mid CCA 90 7 Non Stenotic Plaque Distal CCA 97 10 Non Stenotic Plaque Bifurcation 86 7 Non Stenotic Plaque Proximal ICA 171 32 60-79% stenosis Mid ICA 137 16 40-59% stenosis Distal ICA 103 10 Post stenotic flow Ratio's Right ICA/CCA Ratio: 2.20 ICA/CCA Values: 141/64 Left ICA/CCA Ratio: 1.89 ICA/CCA Values: 171/90 Updated by Haroon Rodriguez MD on 10/09/2016 7:30:24 PM electronically signed on 10/09/2016 7:30:35 PM with status of Final
== END 2016-10-09 18:11 | DRG 176 ==
LOC: EMEROO 09:27 → 2NENU 09:27
PROVIDERS: ADMIT Internal Medicine; ATTEND Internal Medicine

== ENCOUNTER 2016-11-04 23:22 | Inpatient (IN) ==
[2016-11-04] MEDS ORDERED: *HR* FentaNYL (PF) 100 MCG/2 ML VIAL IVP ONE (23:41)
[2016-11-04] MEDS ORDERED: Ondansetron ODT 4 MG TAB.RAPDIS SL ONE (23:41)
[2016-11-04] MEDS ORDERED: 0.9 % Sodium Chloride 1,000 ML IVC ONE (23:41)
[2016-11-04 23:54] LABS: Basophils # 0.1 K/mcL (0.0-0.2); Basophils % 0.3 %; Eosinophils # 0.1 K/mcL (0.0-0.6); Eosinophils % 0.6 %; Hematocrit 41.6 % (37.5-50.1); Hemoglobin 12.8 g/dL (12.9-16.9); Immature Granulocytes % 0.6 % (0-4); Immature Platelets 3.5 % (1.1-6.1); Lymphocytes # 1.4 K/mcL (0.6-4.6); Lymphocytes % 7.1 %; Mean Corpuscular HGB Conc 30.8 g/dL (31.6-35.5); Mean Corpuscular Hemoglobin 32.2 pg (28.0-33.3); Mean Corpuscular Volume 104.5 fL (83.0-100.0); Mean Platelet Volume 10.1 fL (9.4-12.4); Monocytes # 1.5 K/mcL (0.0-1.3); Monocytes % 7.6 %; Neutrophils # 16.1 K/mcL (1.6-8.9); Platelet Count 409 K/mcL (140-400); Red Blood Count 3.98 M/mcL (4.19-5.50); Segmented Neutrophils % 83.8 %
[2016-11-05 00:09] LABS: Albumin 3.5 g/dL (3.5-5.0); Albumin/Globulin Ratio 0.9 (1.1-2.2); Bilirubin,Indirect 0.7 mg/dL (0.0-1.2); Bilirubin,Total 1.7 mg/dL (0.2-1.2); Calcium 9.6 mg/dL (8.6-10.8); Potassium 3.5 mEq/L (3.5-4.5); Total Protein 7.5 g/dL (6.0-8.3)
[2016-11-05] MEDS ORDERED: *HR* HYDROmorphone (PF) 1 MG/ML SYRINGE IVP ONE ×2 (00:15→00:53)
[2016-11-05 00:40] LABS: INR 1.5; Prothrombin Time 16.4 Seconds (9.4-12.1)
[2016-11-05 00:43] LABS: Activated Partial Thrombo Time 31.7 Seconds (26.0-36.0)
--- NOTE | 2016-11-05 00:55 | Emergency Department Note ---
Disposition Clinical Impression: Abdominal pain Qualifiers: Abdominal location: unspecified location Qualified Code(s): R10.9 - Unspecified abdominal pain Pancreatitis Qualifiers: Chronicity: acute Pancreatitis type: unspecified pancreatitis type Acute pancreatitis complication: unspecified Qualified Code(s): K85.90 - Acute pancreatitis without necrosis or infection, unspecified Disposition: Admitted As Inpatient Condition: Good Time of Disposition: 02:54 Abdominal Pain HPI - General Chief Complaint: ED Abdominal Pain Stated Complaint: Nausea, Vomiting Time Seen by Provider: 11/04/16 23:34 Source: EMS Nursing Notes Reviewed: Yes Vital Signs Reviewed: Yes - History of Present Illness HPI Narrative: 86-year-old male complains of abdominal pain nausea and vomiting. He states he was feeling fine, and the vomiting started followed with the abdominal pain. He states it had occurred after eating. He is accompanied by son mentions that patient was recently seen at [facility] for DVT and was recently put on liquids. He denies any chest pain, shortness of breath, fever, melena, bloody stools, hemoptysis, lower extremity swelling Pain Scale: 9 - Related Data Home Medications Medication Instructions Recorded Confirmed Amiodarone HCl [Pacerone] 200 mg PO DAILY 02/18/16 11/05/16 Atorvastatin Calcium [Lipitor] 80 mg PO HS 02/18/16 11/05/16 Finasteride [Proscar] 5 mg PO DAILY 02/18/16 11/05/16 Furosemide [Lasix] 40 mg PO DAILY 02/18/16 11/05/16 Levothyroxine Sodium [Levoxyl] 50 mcg PO QAM 02/18/16 11/05/16 Lisinopril [Zestril] 40 mg PO DAILY 02/18/16 11/05/16 Oxybutynin Chloride [Ditropan Xl] 10 mg PO HS 02/18/16 11/05/16 Potassium Chloride [Klor-Con 20 meq PO BID 02/18/16 11/05/16 Sprinkle] Isosorbide MONOnitrate (24 HR) 60 mg PO BID 06/29/16 11/05/16 [Imdur] Galantamine HBr [Razadyne ER] 24 mg PO DAILY 09/01/16 11/05/16 Loratadine [Allergy Relief] 10 mg PO DAILY 09/01/16 11/05/16 Eliquis 2.5 mg PO 11/05/16 Allergies Allergy/AdvReac Type Severity Reaction Status Date / Time acetaminophen [From Percocet] AdvReac Hallucinati Verified 10/06/16 09:29 ng Oxycodone [From Percocet] AdvReac Hallucinati Verified 10/06/16 09:29 ng All systems ED: reviewed and negative except as stated. Constitutional: Denies: fever ENT ED: Denies: throat pain Cardiovascular: Denies: chest pain, palpitations Respiratory: Denies: cough, dyspnea, wheezes Gastrointestinal: Reports: as per HPI. Denies: diarrhea, constipation, hematemesis Genitourinary: Denies: dysuria Musculoskeletal: Denies: back pain Neurological: Denies: headache, weakness Psychiatric: Denies: depression Endocrine: Denies: fatigue Hematological/Lymphatic: Denies: easy bleeding Allergic/Immunologic: Denies: facial swelling Abdominal Pain PMH - Past Medical History Medical history: Reports: CHF, coronary artery disease, hyperlipidemia, hypertension, TIA Male Surgical History: Reports: coronary bypass (CABG) Psychiatric history: Reports: no psych history - Social History Smoking status: Never smoker Alcohol use: Reports: none Drug use: Reports: none Physical Exam - General Limitations: no limitations General appearance: alert, in no apparent distress - Head Head exam: normocephalic - Eye Eye exam: Present: EOMI. Absent: conjunctival injection - ENT ENT exam: normal oropharynx, mucous membranes moist - Neck Neck exam: Present: full ROM - Chest Chest inspection: Present: symmetric chest wall rise - Respiratory Respiratory exam: Absent: respiratory distress - Cardiovascular Cardiovascular exam: Present: regular rate - Abdominal Exam Abdominal exam: Present: soft, tenderness, guarding, normal bowel sounds. Absent: distention, rebound - Extremities Exam Extremities exam: Present: normal inspection, full ROM, normal capillary refill - Neurological Exam Neurological exam: Present: alert - Psychiatric Psychiatric exam: Present: normal affect, normal mood - Skin Skin exam: Present: warm, dry, intact, normal color. Absent: rash, cyanosis, diaphoresis Course Course Narrative: Patient seen and examined. He is retching and vomiting and abdominal pain. Vital stable. Workup initiated. Analgesics and antiemetics ordered. - Reevaluation(s) Reevaluation #1: Patient did respond to analgesics and antiemetics. Workup does show elevation of white blood cell count, lactate, and lipase. Discussed patient with Dr. Adame. Patient also has bilirubin trending up. Patient does have an elevated troponin, he denies any chest pain, shortness of breath, diaphoresis. We will order a CT scan. Plan will be for admission. Discussed with patient who is agreeable. Time: 00:53 Reevaluation #2: Pt resting comfortably in bed. Vitals stable. CT does show pancreatitis, also concerning signs for cholecystitis. Patient discussed with and accepted by hospitalist Dr. Lauren. Time: 02:53 Vital Signs Temperature 97.5 F L 11/04/16 23:24 Pulse Rate 64 11/04/16 23:24 Respiratory Rate 18 11/04/16 23:24 Blood Pressure 165/69 11/04/16 23:24 O2 Sat by Pulse Oximetry 95 11/04/16 23:24 Temperature 97.5 F L 11/05/16 04:06 Pulse Rate 65 11/05/16 04:06 Respiratory Rate 16 11/05/16 04:06 Blood Pressure 197/72 11/05/16 04:06 O2 Sat by Pulse Oximetry 95 11/05/16 04:06 Oxygen Delivery Oxygen Delivery Room Air Abdominal Pain - MDM Narrative Medical decision making narrative: Patient presented with abdominal pain and nausea and vomiting. Onset was postprandial. Workup did show elevated lipase consistent with pancreatitis. He also had elevated liver enzymes, and CT scan showed concerning signs for cholecystitis. He did have elevated troponin but denied any chest pain or shortness of breath. He did have some worsening renal function since his last evaluation. Patient was discussed with Dr. Adame who also had FaceTime with patient and agree workup and evaluation. Patient was accepted in hospitalist service Chest X-Ray 11/05/16 00:18 IMPRESSION: Findings are most consistent with congestive heart failure. D/ / Bubba Best MD / Bubba Best MD Interpreting Provider: Bubba Best MD Abdomen/Pelvis CT 11/05/16 00:53 IMPRESSION: 1. Acute pancreatitis. There is cholelithiasis with pericholecystic fluid which may be secondary to pancreatitis though may also indicate acute cholecystitis. 2. Diverticulosis without scan evidence for diverticulitis. 3. Left-sided gynecomastia. D/ / Bubba Best MD / Bubba Best MD Interpreting Provider: Bubba Best MD All Lab Results (24 Hours) 11/04/16 11/04/16 11/04/16 Range/Units 23:48 23:48 23:48 WBC 19.2 H (4.3-11.1) K/mcL RBC 3.98 L (4.19-5.50) M/mcL Hgb 12.8 L (12.9-16.9) g/dL Hct 41.6 (37.5-50.1) % MCV 104.5 H (83.0-100.0) fL MCH 32.2 (28.0-33.3) pg MCHC 30.8 L (31.6-35.5) g/dL RDW 16.0 H (11.5-14.5) % Plt Count 409 H (140-400) K/mcL MPV 10.1 (9.4-12.4) fL Immature Gran % 0.6 (0-4) % Seg Neutrophils % 83.8 % Lymphocytes % 7.1 % Monocytes % 7.6 % Eosinophils % 0.6 % Basophils % 0.3 % Neutrophils # 16.1 H (1.6-8.9) K/mcL Lymphocytes # 1.4 (0.6-4.6) K/mcL Monocytes # 1.5 H (0.0-1.3) K/mcL Eosinophils # 0.1 (0.0-0.6) K/mcL Basophils # 0.1 (0.0-0.2) K/mcL Immature Plt Fraction 3.5 (1.1-6.1) % PT (9.4-12.1) Seconds INR APTT (26.0-36.0) Seconds Sodium 143 (136-145) mEq/L Potassium 3.5 (3.5-4.5) mEq/L Chloride 105 (98-109) mEq/L Carbon Dioxide 25 (19-29) mEq/L BUN 28 H (8-26) mg/dL Creatinine 1.52 H (0.72-1.25) mg/dL Est GFR ( Amer) 53 L (> 60) Est GFR (Non-Af Amer) 43 L (> 60) BUN/Creatinine Ratio 18 (6-26) Glucose 211 H (70-99) mg/dL Calculated Osmolality 308 H (280-300) Lactic Acid 2.8 H (0.5-2.2) mmol/L Calcium 9.6 (8.6-10.8) mg/dL Total Bilirubin 1.7 H (0.2-1.2) mg/dL Direct Bilirubin 1.0 H (0.0-0.5) mg/dL Indirect Bilirubin 0.7 (0.0-1.2) mg/dL AST 113 H (5-34) Units/L ALT 73 H (0-55) Units/L Alkaline Phosphatase 263 H (38-126) Units/L Troponin I (0-0.03) ng/mL Serum Total Protein 7.5 (6.0-8.3) g/dL Albumin 3.5 (3.5-5.0) g/dL Globulin 4.0 H (2.4-3.5) g/dL Albumin/Globulin Ratio 0.9 L (1.1-2.2) Lipase 7810 H (8-78) Units/L 11/04/16 11/05/16 Range/Units 23:48 00:32 WBC (4.3-11.1) K/mcL RBC (4.19-5.50) M/mcL Hgb (12.9-16.9) g/dL Hct (37.5-50.1) % MCV (83.0-100.0) fL MCH (28.0-33.3) pg MCHC (31.6-35.5) g/dL RDW (11.5-14.5) % Plt Count (140-400) K/mcL MPV (9.4-12.4) fL Immature Gran % (0-4) % Seg Neutrophils % % Lymphocytes % % Monocytes % % Eosinophils % % Basophils % % Neutrophils # (1.6-8.9) K/mcL Lymphocytes # (0.6-4.6) K/mcL Monocytes # (0.0-1.3) K/mcL Eosinophils # (0.0-0.6) K/mcL Basophils # (0.0-0.2) K/mcL Immature Plt Fraction (1.1-6.1) % PT 16.4 H (9.4-12.1) Seconds INR 1.5 APTT 31.7 (26.0-36.0) Seconds Sodium (136-145) mEq/L Potassium (3.5-4.5) mEq/L Chloride (98-109) mEq/L Carbon Dioxide (19-29) mEq/L BUN (8-26) mg/dL Creatinine (0.72-1.25) mg/dL Est GFR ( Amer) (> 60) Est GFR (Non-Af Amer) (> 60) BUN/Creatinine Ratio (6-26) Glucose (70-99) mg/dL Calculated Osmolality (280-300) Lactic Acid (0.5-2.2) mmol/L Calcium (8.6-10.8) mg/dL Total Bilirubin (0.2-1.2) mg/dL Direct Bilirubin (0.0-0.5) mg/dL Indirect Bilirubin (0.0-1.2) mg/dL AST (5-34) Units/L ALT (0-55) Units/L Alkaline Phosphatase (38-126) Units/L Troponin I 0.05 H* (0-0.03) ng/mL Serum Total Protein (6.0-8.3) g/dL Albumin (3.5-5.0) g/dL Globulin (2.4-3.5) g/dL Albumin/Globulin Ratio (1.1-2.2) Lipase (8-78) Units/L - Lab Data Lab results reviewed: Yes I reviewed the patient's lab results. Result diagrams: 11/05/16 05:04 11/05/16 05:04 Lab Results 11/04/16 11/04/16 11/04/16 Range/Units 23:48 23:48 23:48 WBC 19.2 H (4.3-11.1) K/mcL RBC 3.98 L (4.19-5.50) M/mcL Hgb 12.8 L (12.9-16.9) g/dL Hct 41.6 (37.5-50.1) % MCV 104.5 H (83.0-100.0) fL MCH 32.2 (28.0-33.3) pg MCHC 30.8 L (31.6-35.5) g/dL RDW 16.0 H (11.5-14.5) % Plt Count 409 H (140-400) K/mcL MPV 10.1 (9.4-12.4) fL Immature Gran % 0.6 (0-4) % Seg Neutrophils % 83.8 % Lymphocytes % 7.1 % Monocytes % 7.6 % Eosinophils % 0.6 % Basophils % 0.3 % Neutrophils # 16.1 H (1.6-8.9) K/mcL Lymphocytes # 1.4 (0.6-4.6) K/mcL Monocytes # 1.5 H (0.0-1.3) K/mcL Eosinophils # 0.1 (0.0-0.6) K/mcL Basophils # 0.1 (0.0-0.2) K/mcL Immature Plt Fraction 3.5 (1.1-6.1) % PT (9.4-12.1) Seconds INR APTT (26.0-36.0) Seconds Sodium 143 (136-145) mEq/L Potassium 3.5 (3.5-4.5) mEq/L Chloride 105 (98-109) mEq/L Carbon Dioxide 25 (19-29) mEq/L BUN 28 H (8-26) mg/dL Creatinine 1.52 H (0.72-1.25) mg/dL Est GFR ( Amer) 53 L (> 60) Est GFR (Non-Af Amer) 43 L (> 60) BUN/Creatinine Ratio 18 (6-26) Glucose 211 H (70-99) mg/dL Calculated Osmolality 308 H (280-300) Lactic Acid 2.8 H (0.5-2.2) mmol/L Calcium 9.6 (8.6-10.8) mg/dL Total Bilirubin 1.7 H (0.2-1.2) mg/dL Direct Bilirubin 1.0 H (0.0-0.5) mg/dL Indirect Bilirubin 0.7 (0.0-1.2) mg/dL AST 113 H (5-34) Units/L ALT 73 H (0-55) Units/L Alkaline Phosphatase 263 H (38-126) Units/L Troponin I (0-0.03) ng/mL Serum Total Protein 7.5 (6.0-8.3) g/dL Albumin 3.5 (3.5-5.0) g/dL Globulin 4.0 H (2.4-3.5) g/dL Albumin/Globulin Ratio 0.9 L (1.1-2.2) Lipase 7810 H (8-78) Units/L 11/04/16 11/05/16 Range/Units 23:48 00:32 WBC (4.3-11.1) K/mcL RBC (4.19-5.50) M/mcL Hgb (12.9-16.9) g/dL Hct (37.5-50.1) % MCV (83.0-100.0) fL MCH (28.0-33.3) pg MCHC (31.6-35.5) g/dL RDW (11.5-14.5) % Plt Count (140-400) K/mcL MPV (9.4-12.4) fL Immature Gran % (0-4) % Seg Neutrophils % % Lymphocytes % % Monocytes % % Eosinophils % % Basophils % % Neutrophils # (1.6-8.9) K/mcL Lymphocytes # (0.6-4.6) K/mcL Monocytes # (0.0-1.3) K/mcL Eosinophils # (0.0-0.6) K/mcL Basophils # (0.0-0.2) K/mcL Immature Plt Fraction (1.1-6.1) % PT 16.4 H (9.4-12.1) Seconds INR 1.5 APTT 31.7 (26.0-36.0) Seconds Sodium (136-145) mEq/L Potassium (3.5-4.5) mEq/L Chloride (98-109) mEq/L Carbon Dioxide (19-29) mEq/L BUN (8-26) mg/dL Creatinine (0.72-1.25) mg/dL Est GFR ( Amer) (> 60) Est GFR (Non-Af Amer) (> 60) BUN/Creatinine Ratio (6-26) Glucose (70-99) mg/dL Calculated Osmolality (280-300) Lactic Acid (0.5-2.2) mmol/L Calcium (8.6-10.8) mg/dL Total Bilirubin (0.2-1.2) mg/dL Direct Bilirubin (0.0-0.5) mg/dL Indirect Bilirubin (0.0-1.2) mg/dL AST (5-34) Units/L ALT (0-55) Units/L Alkaline Phosphatase (38-126) Units/L Troponin I 0.05 H* (0-0.03) ng/mL Serum Total Protein (6.0-8.3) g/dL Albumin (3.5-5.0) g/dL Globulin (2.4-3.5) g/dL Albumin/Globulin Ratio (1.1-2.2) Lipase (8-78) Units/L - Radiology Data Radiology results reviewed: Yes I reviewed the patient's radiology results. - EKG Data EKG attestation: Yes I reviewed and interpreted this EKG. EKG results narrative: Sinus bradycardia with ventricular rate 55. First-degree AV block. Specific T waves. Left ventricular hypertrophy. No acute ST changes. Attestation Statement - Attestation Attestation: I, Eder Adame MD, personally evaluated this patient and discussed their management with the midlevel provicer, PAC/[employer]. I reviewed the midlevel provider 's note and agree with the documented findings, medical decision making, and plan of care. 86-year-old male Prsents from extended care facility with a omplaint ofnauseavomiting and epigc abdominal pain whch startes evening after eating dinner pain radiates straight through to his back. No diarrhea. No melena, hematemesis, or hematochezia. No fever. No prior history of pancreatitis. On examination patient is a well-developed well-nourished elderly male in no acute distress. He is alert and cooperative. There is no cyanosis or diaphoresis. Breath sounds are clear and equal bilaterally. Heart regular rate and rhythm. Abdomen is soft with decreased bowel sounds. There is moderate midepigastric tenderness. Labs reviewed. Leukocytosis. Acute kidney injury, elevated hepatic enzymes, lipase 7810. CT of the abdomen and pelvis shows acute pancreatitis. There is some cholelithiasis with some pericholecystic fluid could be secondary to the pancreatitis that could also represent cholecystitis. The hospitalist, Dr. Lauren, was consulted and accepted admission of the patient.
[2016-11-05] MEDS ORDERED: Ondansetron 4 MG/2 ML VIAL IVP ONE (03:06)
[2016-11-05] MEDS ORDERED: Ondansetron 4 MG/2 ML VIAL ONE (03:10)
[2016-11-05] MEDS ORDERED: *HR* Morphine 2 MG/ML SYRINGE IVP PRN (04:39)
[2016-11-05] MEDS ORDERED: Naloxone 0.4 MG/ML INJ IVP PRN (04:39)
--- NOTE | 2016-11-05 05:02 | Internal Med History&Physical ---
Date of Encounter: 11/05/16 Time of Encounter: 04:45 Assessment and Plan (1) Acute pancreatitis Current visit: Yes Status: Acute Abdominal pain and nausea - secondary to acute pancreatitis probably due to gallstones - also causing leukocytosis Continue IV fluids, NPO, Empiric IV Flagyl, IV Cipro IV Protonix, IV Zofran when necessary, IV morphine when necessary Lipase - 7810 Chest x-ray - mild pulmonary edema with cardiomegaly EKG - sinus bradycardia and first-degree AV block with no acute ST-T changes Troponin - 0.03, cycle troponin BN peptide - 336 (no signs of acute heart failure at present) CT abdomen and pelvis - Acute pancreatitis with cholelithiasis with pericholecystic fluid and possible cholecystitis, Diverticulosis without scan evidence for diverticulitis US gallbladder - pending Cardiac telemetry, labs in a.m. Qualifiers: Pancreatitis type: unspecified pancreatitis type Acute pancreatitis complication: unspecified Qualified Code(s): K85.90 - Acute pancreatitis without necrosis or infection, unspecified (2) Pulmonary embolism Current visit: No Status: Chronic Recently diagnosed pulmonary embolism and recent DVT - continue Eliquis 2.5 mg by mouth twice a day Qualifiers: Pulmonary embolism type: other Chronicity: acute Acute cor pulmonale presence: without acute cor pulmonale Qualified Code(s): I26.99 - Other pulmonary embolism without acute cor pulmonale (3) CKD (chronic kidney disease) stage 3, GFR 30-59 ml/min Current visit: No Status: Chronic Chronic kidney disease stage III, stable - GFR and creatinine at baseline (4) Hypertension Current visit: No Status: Chronic Essential hypertension, controlled, Continue home meds, monitor Qualifiers: Hypertension type: essential hypertension Qualified Code(s): I10 - Essential (primary) hypertension (5) Hypothyroid Current visit: No Status: Chronic continue Levothyroxine Qualifiers: Hypothyroidism type: unspecified Qualified Code(s): E03.9 - Hypothyroidism , unspecified (6) DVT prophylaxis Current visit: No Status: Acute continue Eliquis Internal Medicine - H&P: HPI Chief complaint: Abdominal pain and nausea Admitted From: Emergency Dept Plans for Post Hospital Care: Home History of present illness: Mr. Ralph is a 86 year old male with past medical history of CHF, coronary artery disease, hyperlipidemia, hypertension, chronic kidney disease stage III, recently diagnosed pulmonary embolism and DVT, hypothyroidism and recent TIA. Patient presents to the ED with complaints of abdominal pain and nausea and vomiting. On examination patient is awake and alert. Not in any distress. He is in discomfort due to the pain. He is able to provide history. He is oriented to place and person. No family members at bedside. Patient states he developed abdominal pain and nausea and vomiting just a few hours prior to arrival. Patient states it started soon after he had dinner. Pain seems to be mainly in the epigastric region and the periumbilical region. Patient describes it as a cramping pain which is almost constant. Rates it 7 out of 10. No aggravating or alleviating factors. He says symptoms have slightly improved after being given medications the ED. Patient denies chest pain, denies shortness of breath denies palpitations or dizziness or headache. He denies fever or chills or night sweats. No diarrhea. States he has nausea and has had several episodes of vomiting with no blood in emesis. No other associated symptoms. Initial evaluation in the ED reveals elevated lipase and CT of abdomen and pelvis reveals acute pancreatitis with cholelithiasis and pericholecystic fluid. Chest x-ray will be mild pulmonary edema. However patient does not have any signs of acute heart failure at this time. Patient's white count was also elevated. Patient is being admitted for acute pancreatitis. Patient will be kept nothing by mouth and will be on IV fluids. Empiric IV Flagyl and IV Cipro. Patient has been explained about his condition and plan of care. Understood and agreed. No unanswered questions. CODE STATUS full code. Past Med Surg Social Fam HX - Past Medical History Medical history: atrial fibrillation, CHF, coronary artery disease, DVT, hyperlipidemia, hypertension, renal disease, thyroid disease, TIA, other ( Recently diagnosed pulmonary embolism) Psychiatric history: no psych history - Past Surgical History Surgical History: coronary bypass (CABG) - Social History Smoking Status: Never smoker Smokeless Tobacco Status: No Alcohol use: none Drug use: none - Family History Mother Hx Family Cardiac Disorders: No Hx Family Respiratory Disorders: No Hx Family Cancer: No Hx Family GI Disorders: Yes (stomach acid) Hx Family Endocrine Disorder: No Hx Family Neuromuscular Disorders: No Hx Family Neurologic Disorders: No Hx Family HEENT Disorders: No Hx Family Autoimmune Disorders: No Father Hx Family Cardiac Disorders: Yes ([place]) Hx Family Respiratory Disorders: No Hx Family Cancer: No Hx Family GI Disorders: No Hx Family Endocrine Disorder: No Hx Family Neuromuscular Disorders: No Hx Family Neurologic Disorders: No Hx Family HEENT Disorders: No Hx Family Autoimmune Disorders: No Internal Medicine - H&P: Meds Amiodarone HCl [Pacerone] 200 mg PO DAILY 02/18/16 [History] Atorvastatin Calcium [Lipitor] 80 mg PO HS 02/18/16 [History] Finasteride [Proscar] 5 mg PO DAILY 02/18/16 [History] Furosemide [Lasix] 40 mg PO DAILY 02/18/16 [History] Levothyroxine Sodium [Levoxyl] 50 mcg PO QAM 02/18/16 [History] Lisinopril [Zestril] 40 mg PO DAILY 02/18/16 [History] Oxybutynin Chloride [Ditropan Xl] 10 mg PO HS 02/18/16 [History] Potassium Chloride [Klor-Con Sprinkle] 20 meq PO BID 02/18/16 [History] Isosorbide MONOnitrate (24 HR) [Imdur] 60 mg PO BID 06/29/16 [History] Galantamine HBr [Razadyne ER] 24 mg PO DAILY 09/01/16 [History] Loratadine [Allergy Relief] 10 mg PO DAILY 09/01/16 [History] Eliquis 2.5 mg PO 11/05/16 [History] Allergies acetaminophen [From Percocet] Adverse Reaction (Verified 10/06/16 09:29) Hallucinating Oxycodone [From Percocet] Adverse Reaction (Verified 10/06/16 09:29) Hallucinating All Systems PM: A 10-system review of systems was performed and is negative for pertinent findings except as documented above in the HPI. - Constitutional Constitutional: fatigue, weakness, no fever(s) - EENT Eyes: no blurry vision - Cardiovascular Cardiovascular ROS IM: no chest pain, no diaphoresis, no dyspnea, no dyspnea on exertion, no edema, no lightheadedness, no orthopnea, no syncope - Respiratory Respiratory: no cough, no dyspnea, no dyspnea on exertion, no wheezing, no chest congestion - Gastrointestinal Gastrointestinal: abdominal pain, cramping, dyspepsia, heartburn, nausea, vomiting, no diarrhea, no hematochezia, no loose stools, no melena - Genitourinary Genitourinary ROS male: no dysuria - Musculoskeletal Musculoskeletal ROS IM: no arthralgias - Neurological Neurological ROS: no abnormal gait, no abnormal speech, no dizziness, no loss of vision, no numbness, no tingling - Constitutional Vitals: Temp Pulse Resp BP Pulse Ox 97.5 F L 65 16 197/72 95 11/05/16 04:06 11/05/16 04:06 11/05/16 04:06 11/05/16 04:06 11/05/16 04:06 General appearance: Present: A&O X 2, pleasant, no acute distress, answers questions appropriately Exam: Generalized weakness, ill-appearing, in discomfort due to pain - Head Head exam: Present: atraumatic - Eye Eye exam: Present: EOMI - ENT ENT exam: Present: mucous membranes dry - Neck Neck exam general surgery: Present: supple - Respiratory Respiratory exam: Present: CTAB. Absent: rales, rhonchi, wheezes, tachypnea - Cardiovascular Cardiovascular exam: Present: RRR, +S1, +S2 - GI/Abdominal GI/Abdominal exam: Present: soft, tenderness (Epigastric and periumbilical tenderness), no peritoneal signs. Absent: distended, firm, guarding, rigid - Extremities Exam Extremities exam: Present: radial pulses palpable and symetrical. Absent: cyanotic, pedal edema, tenderness - Neurological Exam Neurological exam: Present: alert, CN II-XII intact, no focal deficits. Absent : facial droop, speech deficit Additional comments: LABORATORY, ORIENTED TO PLACE AND PERSON, ABLE TO VERBALIZE AND FOLLOW SIMPLE VERBAL COMMANDS, AND NO OBVIOUS DEFICITS Internal Med - H&P Results - Labs CBC & Chem 7: 11/05/16 05:04 11/05/16 05:04
[2016-11-05] MEDS ORDERED: 0.9 % Sodium Chloride 1,000 ML ONE (05:04)
[2016-11-05 05:17] LABS: Basophils % 0.1 %; Hematocrit 39.6 % (37.5-50.1); Hemoglobin 12.4 g/dL (12.9-16.9); Immature Granulocytes % 0.5 % (0-4); Immature Platelets 3.5 % (1.1-6.1); Lymphocytes # 0.7 K/mcL (0.6-4.6); Mean Corpuscular HGB Conc 31.3 g/dL (31.6-35.5); Mean Corpuscular Volume 105.3 fL (83.0-100.0); Mean Platelet Volume 10.2 fL (9.4-12.4); Monocytes # 0.9 K/mcL (0.0-1.3); Monocytes % 5.2 %; Neutrophils # 15.6 K/mcL (1.6-8.9); Platelet Count 331 K/mcL (140-400); Red Blood Count 3.76 M/mcL (4.19-5.50); Segmented Neutrophils % 90.2 %
[2016-11-05] MEDS ORDERED: *HR* Promethazine 25 MG/ML VIAL IVP ONE (05:22)
[2016-11-05 05:31] LABS: Albumin 3.3 g/dL (3.5-5.0); Albumin/Globulin Ratio 0.9 (1.1-2.2); Globulin 3.7 g/dL (2.4-3.5); Magnesium 1.6 mg/dL (1.6-2.6); Potassium 4.2 mEq/L (3.5-4.5)
[2016-11-05] MEDS: 0.9 % Sodium Chloride 1,000 ML IVC SCH ×3 (05:36→21:01)
[2016-11-05] MEDS: Ondansetron 4 MG/2 ML VIAL IVP PRN ×2 (06:09→15:48)
[2016-11-05] MEDS ORDERED: Isosorbide MONOnitrate (24 HR) 60 MG TAB.ER.24H PO SCH (09:00)
[2016-11-05] MEDS ORDERED: APIXABAN 5 MG TABLET PO SCH (09:00)
[2016-11-05] MEDS ORDERED: GALANTAMINE HBR 24 MG PO SCH (09:00)
--- NOTE | 2016-11-05 09:49 | Gastroenterology Consult Note ---
<Gilma Mccall - Last Filed: 11/05/16 10:50> Date of Encounter: 11/05/16 Time of Encounter: 10:30 - Assessment and plan (1) DVT (deep venous thrombosis) Current Visit: No Status: Acute Assessment and plan: recently diagnosed - on ELIQUIS Qualifiers: DVT location: lower extremity Affected thrombotic vein of extremity: tibial Chronicity: acute Laterality: left Qualified Code(s): I82.442 - Acute embolism and thrombosis of left tibial vein (2) Acute pancreatitis Current Visit: Yes Status: Acute Assessment and plan: grossly elev lipase with cholelithiasis on imaging. Slightly elevated LFTs. Recommend: pancreatitis w/u, IVF 150 mls/hr until able to tolerate po. BiSap 2. Qualifiers: Pancreatitis type: unspecified pancreatitis type Acute pancreatitis complication: unspecified Qualified Code(s): K85.90 - Acute pancreatitis without necrosis or infection, unspecified (3) Elevated LFTs Current Visit: Yes Status: Acute Assessment and plan: Current mild elevation with bili at 1.7, AST 65, ALT 64, alk phos 277. Monitor same. US gallbladder showed stable CBD at 8mm. Cholelithiasis noted on CT imaging. MRCP to r/o choledocholelithiasis - Time Spent With Patient Total time spent is greater than 50% in coordination of care (as documented) at patient's floor/unit and/or counseling patient: less than 15 minutes GI History of Present Illness - Data of Consult Patient: new to practice Consult date: 11/05/16 Requesting Physician: Joshua Johnson MD - Consult Narrative Reason for consult: pancreatitis History of present illness: Mr. Ralph is a 86 year old male with past medical history of CHF, coronary artery disease, hyperlipidemia, hypertension, chronic kidney disease stage III, recently diagnosed pulmonary embolism and DVT (3 wks ago) on ELIQUIS, hypothyroidism and recent TIA. Patient presented to the ED with complaints of abdominal pain and nausea and vomiting. Patient states he developed abdominal pain and nausea and vomiting just a few hours prior to arrival. Patient reported symptoms began shortly after eating dinner last PM, mainly in the epigastric region and the periumbilical region. Patient describes it as a cramping pain which is almost constant. Stated he has nausea and has had several episodes of vomiting with no blood in emesis. No other associated symptoms. Initial evaluation in the ED revealed elevated lipase and CT of abdomen and pelvis showed acute pancreatitis with cholelithiasis and pericholecystic fluid. Chest x-ray positive for mild pulmonary edema. Patient admitted for acute pancreatitis. Patient seen at bedside, family present at time of evaluation. He had just vomited again prior to my arrival. He admitted was having current abdominal pain. Per family, patient has BM about every 3 days. He is unaware of prior scopes, if he had one, has been 'years' ago. Denies blood in stools, diarrhea. Stools can be hard and if he doesn't ' use something' he cannot produce a stool. This has been his norm for several years per the family. No evidence of etoh abuse or history of same. Colonoscopy: None noted EGD: None noted Past Med Surg Social Fam HX - Past Medical History Medical history: atrial fibrillation, CHF, coronary artery disease, DVT, hyperlipidemia, hypertension, renal disease, thyroid disease, TIA, other ( Recently diagnosed pulmonary embolism) Psychiatric history: no psych history - Past Surgical History Surgical History: coronary bypass (CABG) - Social History Smoking Status: Never smoker Smokeless Tobacco Status: No Alcohol use: none Drug use: none - Family History Mother Hx Family Cardiac Disorders: No Hx Family Respiratory Disorders: No Hx Family Cancer: No Hx Family GI Disorders: Yes (stomach acid) Hx Family Endocrine Disorder: No Hx Family Neuromuscular Disorders: No Hx Family Neurologic Disorders: No Hx Family HEENT Disorders: No Hx Family Autoimmune Disorders: No Father Hx Family Cardiac Disorders: Yes ([place]) Hx Family Respiratory Disorders: No Hx Family Cancer: No Hx Family GI Disorders: No Hx Family Endocrine Disorder: No Hx Family Neuromuscular Disorders: No Hx Family Neurologic Disorders: No Hx Family HEENT Disorders: No Hx Family Autoimmune Disorders: No - Gastrointestinal NSAID use: none noted Anticoagulation Use: ELIQUIS Number of BM Per Day: every 3 days Gastrointestinal: Present: abdominal pain, nausea, vomiting - Constitutional Constitutional: as per HPI - EENT Eyes: as per HPI Ears: Present: as per HPI Nose, mouth and throat: Present: as per HPI - Cardiovascular Cardiovascular ROS: Present: as per HPI - Respiratory Respiratory IM: Present: as per HPI - Neurological ROS Neurological GI: Present: as per HPI - Hematologic/Lymphatic Hematologic/Lymphatic pediatric: Present: as per HPI - Musculoskeletal Musculoskeletal ROS GI: Present: as per HPI - Integumentary Integumentary GI: Present: as per HPI - Psychiatric ROS Psychiatric GI: Present: as per HPI - Endocrine Endocrine IM: Present: as per HPI - Constitutional Vitals: Temp Pulse Resp BP Pulse Ox 97.5 F L 64 18 189/71 96 11/05/16 08:47 11/05/16 08:47 11/05/16 08:47 11/05/16 08:47 11/05/16 08:47 General appearance: Present: cooperative, mild distress, A&O X 3, answers questions appropriately - Head Head exam: Present: atraumatic, normocephalic - Eye Eye exam: Present: normal appearance, sclera anicteric - ENT ENT exam: Present: mucous membranes moist - Neck Neck exam general surgery: Present: normal inspection, trachea midline - Respiratory Respiratory exam: Present: CTAB - Cardiovascular Cardiovascular exam: Present: RRR, +S1, +S2 - GI/Abdominal GI/Abdominal exam: Present: soft, tenderness - Rectal Rectal exam: Present: deferred - Extremities Exam Extremities exam: Present: warm - Neurological Exam Neurological exam: Present: no focal deficits - Psychiatric Psychiatric exam: Present: normal affect, normal mood - Skin Skin exam: Present: dry, intact, normal color, warm Results - Labs CBC & Chem 7: 11/05/16 05:04 11/05/16 05:04 Labs: Last Result Calcium 9.0 mg/dL (8.6-10.8) 11/05/16 05:04 Troponin I 0.03 ng/mL (0-0.03) 11/05/16 05:04 Entire Visit Hgb 12.4 g/dL (12.9-16.9) L 11/05/16 05:04 Hct 39.6 % (37.5-50.1) 11/05/16 05:04 PT 16.4 Seconds (9.4-12.1) H 11/05/16 00:32 Total Bilirubin 1.0 mg/dL (0.2-1.2) 11/05/16 05:04 AST 65 Units/L (5-34) H 11/05/16 05:04 ALT 64 Units/L (0-55) H 11/05/16 05:04 Lipase 7810 Units/L (8-78) H 11/04/16 23:48 - ABG ABG results: PT/INR, D-dimer PT 16.4 Seconds (9.4-12.1) H 11/05/16 00:32 - Impressions Impressions Gallbladder Ultrasound 11/05/16 09:00 IMPRESSION: 1. Enlarged pancreas consistent with pancreatitis as noted on ultrasound. 2. Cholelithiasis. Mildly dilated common bile duct at 8 mm. Small quantity of nonspecific pericholecystic fluid. Absent sonographic Dietrich sign. If there is continued clinical concern for cholecystitis, hepatobiliary scan is recommended. D/ / Yossi Hernandez MD / Yossi Hernandez MD Interpreting Provider: Yossi Hernandez MD Consult Discharge Plan - Plan Referrals: Haroon Liriano MD [Primary Care Provider] - (Office request that patient calls to make the appt. after discharge. Thank you) <Gaston Tovar - Last Filed: 11/05/16 17:59> Date of Encounter: 11/05/16 Time of Encounter: 17:00 - Time Spent With Patient Total time spent is greater than 50% in coordination of care (as documented) at patient's floor/unit and/or counseling patient: GI History of Present Illness - Data of Consult Requesting Physician: Joshua Johnson MD - Consult Narrative History of present illness: Mr. Ralph is a 86 year old male - Constitutional Vitals: Temp Pulse Resp BP Pulse Ox 97.4 F L 55 18 156/75 91 11/05/16 15:28 11/05/16 15:28 11/05/16 15:28 11/05/16 15:28 11/05/16 15:28 Results - Labs CBC & Chem 7: 11/05/16 05:04 11/05/16 05:04 Labs: Last Result Calcium 9.0 mg/dL (8.6-10.8) 11/05/16 05:04 Troponin I 0.02 ng/mL (0-0.03) 11/05/16 16:05 Triglycerides 107 mg/dL (< 150) 11/05/16 10:55 Entire Visit Hgb 12.4 g/dL (12.9-16.9) L 11/05/16 05:04 Hct 39.6 % (37.5-50.1) 11/05/16 05:04 PT 16.4 Seconds (9.4-12.1) H 11/05/16 00:32 Total Bilirubin 1.0 mg/dL (0.2-1.2) 11/05/16 05:04 AST 65 Units/L (5-34) H 11/05/16 05:04 ALT 64 Units/L (0-55) H 11/05/16 05:04 Lipase 7810 Units/L (8-78) H 11/04/16 23:48 - ABG ABG results: PT/INR, D-dimer PT 16.4 Seconds (9.4-12.1) H 11/05/16 00:32 - Impressions Impressions Gallbladder Ultrasound 11/05/16 09:00 IMPRESSION: 1. Enlarged pancreas consistent with pancreatitis as noted on ultrasound. 2. Cholelithiasis. Mildly dilated common bile duct at 8 mm. Small quantity of nonspecific pericholecystic fluid. Absent sonographic Dietrich sign. If there is continued clinical concern for cholecystitis, hepatobiliary scan is recommended. D/ / 11/05/2016 09:43:27 Yossi Hernandez MD / arlen Interpreting Provider: Yossi Hernandez MD - Attending Attestation I examined this patient and my medical decision-making was reviewed with the Resident Physician. I agree with the documented findings, disposition and treatment plan as described except to the extent set forth below. gallstone pancreatitis. MRCP negative for any CBD stone. Recommendation IV fluid and pain management.
[2016-11-05] MEDS ORDERED: 0.9 % Sodium Chloride 1,000 ML IVC SCH (10:00)
[2016-11-05] MEDS: Piperacillin/Tazobactam 3.375 GM in D5% in Water (Mini-Bag+) 100 ML IVPB SCH ×2 (10:15→17:31)
[2016-11-05] MEDS: Finasteride 5 MG TABLET PO SCH (10:17)
[2016-11-05] MEDS: *HR* Amiodarone 200 MG TABLET PO SCH (10:17)
[2016-11-05] MEDS: Lisinopril 20 MG TABLET PO SCH (10:17)
[2016-11-05] MEDS: Pantoprazole 40 MG VIAL IVP SCH (10:17)
[2016-11-05] MEDS ORDERED: *HR* HYDROmorphone 2 MG/ML SYRINGE IVP PRN ×2 (12:03→15:25)
[2016-11-05] MEDS ORDERED: D5% in Water 1,000 ML IVC PRN (12:07)
[2016-11-05] MEDS ORDERED: Dextrose Gel 15 GM PO PRN ×2 (12:07)
[2016-11-05 12:09] LABS: Ionized Calcium 1.06 mmol/L (1.15-1.35)
[2016-11-05] MEDS ORDERED: *HR* HYDROmorphone (PF) 1 MG/ML SYRINGE IVP PRN (13:15)
[2016-11-05] MEDS: *HR* Enoxaparin 100 MG/ML SYRINGE SQ SCH (14:19)
--- NOTE | 2016-11-05 16:26 | Electrocardiograph Report ---
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
--- NOTE | 2016-11-05 16:28 | Electrocardiograph Report ---
[place] [address] Test Date: 2016-11-05 Pat Name: Kelvin Ralph Department: 115 Room: 3A43 Gender: M Bar Roller: [place] : 1930 Requested By: Trey Barreto Order Number: [id number] Reading MD: Jameson Hancock MD Measurements Intervals [place] Rate: 62 P: 92 [place]: 259 QRS: -47 QRSD: 117 T: 43 QT: 480 QTc: 486 Interpretive Statements SINUS RHYTHM WITH FIRST DEGREE AV BLOCK LEFT ANTERIOR FASCICULAR BLOCK MODERATE VOLTAGE CRITERIA FOR LVH Poor R wave progression PROLONGED QT INTERVAL Electronically Signed On 11-05-2016 16:26:37 EDT by Jameson Hancock MD
[2016-11-05] MEDS: Insulin LISPRO 300 UNITS/3 ML VIAL SQ SCH ×2 (17:33→23:17)
--- NOTE | 2016-11-05 18:53 | Internal Med Progress Note ---
Date of Encounter: 11/05/16 Time of Encounter: 18:48 - Assessment and plan (1) REMEDIOS (acute kidney injury) Current Visit: Yes Status: Resolved Assessment and plan: Creatinine is slightly elevated he has history of stage III chronic kidney disease will observe it on daily basis (2) Hypertension Current Visit: Yes Status: Chronic Assessment and plan: Check blood pressure daily start IV hydralazine as he cannot take oral medication and his blood pressure is very high Qualifiers: Hypertension type: essential hypertension Qualified Code(s): I10 - Essential (primary) hypertension (3) CAD (coronary artery disease) Current Visit: No Status: Chronic Assessment and plan: History of coronary artery disease and CABG troponin mildly elevated and we believe they reflect demand ischemia Qualifiers: Coronary Disease-Associated Artery/Lesion type: [place] artery [place] vs. transplanted heart: [place] heart Associated angina: without angina Qualified Code(s): I25.10 - Atherosclerotic heart disease of [place] coronary artery without angina pectoris (4) CKD (chronic kidney disease) stage 3, GFR 30-59 ml/min Current Visit: No Status: Chronic Assessment and plan: Monitor I's and O's and renal function closely on daily basis (5) Pulmonary embolism Current Visit: Yes Status: Chronic Assessment and plan: According to family he has been diagnosed with PE only 3 weeks ago he will be on Lovenox on renal dose Qualifiers: Pulmonary embolism type: other Chronicity: acute Acute cor pulmonale presence: without acute cor pulmonale Qualified Code(s): I26.99 - Other pulmonary embolism without acute cor pulmonale (6) Acute pancreatitis Current Visit: Yes Status: Acute Assessment and plan: In quite a bit of pain morphine has been a stop and Dilaudid as started CBC amylase lipase will be watched on daily basis Qualifiers: Pancreatitis type: unspecified pancreatitis type Acute pancreatitis complication: unspecified Qualified Code(s): K85.90 - Acute pancreatitis without necrosis or infection, unspecified (7) Acute cholecystitis Current Visit: Yes Status: Acute Assessment and plan: Gallstones present MRCP negative gastroenterology on case on IV Rocephin - Subjective Interval history: Mr. Kelvin Ralph is 86-year-old male who is admitted for abdominal pain. His diagnosed with gallstone pancreatitis and cholecystitis. He is in quite a bit of discomfort. I consulted gastroenterology and he had an MRCP today which did not show any gallstones and bile duct. He has been a started on IV antibiotics as per guidance of gastroenterology including IV Rocephin. Will follow his CBC CMP amylase lipase on daily basis. Patient has history of CHF and EF previously was around 40-45% while also had history of coronary artery disease and CABG. Gastro oncology is requested to increase the IV fluid therefore we will increase it to 125 cautiously as on admission his BNP was 336. If it appears that he is going in CHF and we might have to pull back. His troponin bumped mildly elevated and merely shows demand ischemia. I ordered an echocardiogram. He also has history of PE diagnosed only 3 weeks ago but he cannot take any oral pills. Therefore I will switch him to renal adjusted Lovenox. We will try to give him his amiodarone and if we need to give him IV than we have to transfer him to another floor. I put him on nitroglycerin patch in place of his Imdur and IV hydralazine instead of lisinopril. His renal functions are elevated and I am not sure of the has CKD but this is due to dehydration. I discussed the case with his family and overall he is quite sick. - Constitutional Vitals: Temp Pulse Resp BP Pulse Ox 97.4 F L 55 18 156/75 91 11/05/16 15:28 11/05/16 15:28 11/05/16 15:28 11/05/16 15:28 11/05/16 15:28 General appearance: Present: A&O X 2, pleasant, no acute distress, answers questions appropriately - Head Head exam: Present: atraumatic, normocephalic - Eye Eye exam: Present: PERRL, conjuntiva pink, sclera anicteric Pupils: Present: PERRL - Neck Neck exam general surgery: Present: supple, trachea midline. Absent: lymphadenopathy - Respiratory Respiratory exam: Present: decreased breath sounds. Absent: accessory muscle use, rales, rhonchi, wheezes - Cardiovascular Cardiovascular exam: Present: RRR, +S1, +S2. Absent: diastolic murmur, gallop, rubs, systolic murmur - GI/Abdominal GI/Abdominal exam: Present: diminished bowel sounds, soft, tenderness, no peritoneal signs. Absent: distended Additional comments: Abdominal soft but almost generalized tenderness without any rebound tenderness or organomegaly bowel sounds sluggish - Extremities Exam Extremities exam: Present: warm, radial pulses palpable and symetrical. Absent : calf tenderness, cyanotic, pedal edema - Neurological Exam Neurological exam: Present: CN II-XII intact, oriented X3, no focal deficits. Absent: pronater drift, facial droop, speech deficit - Skin Skin exam: Present: dry, intact Internal Medicine: Result - Labs CBC & Chem 7: 11/05/16 05:04 11/05/16 05:04 Labs: Short CBC 11/05/16 Range/Units 05:04 WBC 17.3 H (4.3-11.1) K/mcL Hgb 12.4 L (12.9-16.9) g/dL Hct 39.6 (37.5-50.1) % Plt Count 331 (140-400) K/mcL Neutrophils # 15.6 H (1.6-8.9) K/mcL BMP 11/05/16 05:04 Sodium 144 Potassium 4.2 Chloride 107 Carbon Dioxide 27 BUN 27 H Creatinine 1.44 H Glucose 170 H Calcium 9.0 Cardiac Enzymes 11/05/16 11/05/16 11/05/16 Range/Units 05:04 10:55 16:05 Troponin I 0.03 0.02 0.02 (0-0.03) ng/mL Liver Function 11/05/16 Range/Units 05:04 Total Bilirubin 1.0 (0.2-1.2) mg/dL AST 65 H (5-34) Units/L ALT 64 H (0-55) Units/L Alkaline Phosphatase 227 H (38-126) Units/L Albumin 3.3 L (3.5-5.0) g/dL - ABG Interpretation ABG results: PT/INR, D-dimer PT 16.4 Seconds (9.4-12.1) H 11/05/16 00:32 - Impressions Impressions Gallbladder Ultrasound 11/05/16 09:00 IMPRESSION: 1. Enlarged pancreas consistent with pancreatitis as noted on ultrasound. 2. Cholelithiasis. Mildly dilated common bile duct at 8 mm. Small quantity of nonspecific pericholecystic fluid. Absent sonographic Dietrich sign. If there is continued clinical concern for cholecystitis, hepatobiliary scan is recommended. D/ / 11/05/2016 09:43:27 Yossi Hernandez MD / arlen Interpreting Provider: Yossi Hernandez MD Consult Discharge Plan - Plan Referrals: Haroon Liriano MD [Primary Care Provider] - (Office request that patient calls to make the appt. after discharge. Thank you)
[2016-11-05] MEDS: *HR* HYDROmorphone (PF) 1 MG/ML SYRINGE IVP PRN (20:59)
[2016-11-05 23:03] LABS: Bilirubin,Urine Negative (Negative); Blood,Urine Negative (Negative); Clarity,Urine Clear (Clear); Color,Urine Yellow (Yellow); Glucose,Urine (UA) Normal (Normal); Ketones,Urine Negative (Negative); Leukocyte Esterase,Urine Negative (Negative); Nitrite,Urine Negative (Negative); Protein,Urine Trace mg/dL (Neg-Trace); Specific Gravity,Urine 1.024 (1.010-1.025); Urobilinogen,Urine Normal (Normal)
[2016-11-05 23:08] LABS: Bacteria,Urine None Seen per hpf (None-Few); Hyaline Casts,Urine None Seen per lpf (None-Few); RBC,Urine 0-3 per hpf (0-3); Squamous Epithelial Cell,Urine Many per lpf (None-Few); WBC,Urine 0-3 per hpf (0-3)
[2016-11-06] MEDS: *HR* HYDROmorphone (PF) 1 MG/ML SYRINGE IVP PRN (02:05)
[2016-11-06] MEDS: Piperacillin/Tazobactam 3.375 GM in D5% in Water (Mini-Bag+) 100 ML IVPB SCH ×3 (02:06→17:17)
[2016-11-06] MEDS: Insulin LISPRO 300 UNITS/3 ML VIAL SQ SCH ×3 (05:47→17:13)
[2016-11-06 06:20] LABS: Basophils % 0.1 %; Eosinophils % 0.1 %; Immature Granulocytes % 0.9 % (0-4); Immature Platelets 4.2 % (1.1-6.1); Lymphocytes # 1.5 K/mcL (0.6-4.6); Lymphocytes % 6.2 %; Mean Corpuscular Hemoglobin 33.1 pg (28.0-33.3); Mean Corpuscular Volume 110.2 fL (83.0-100.0); Mean Platelet Volume 10.8 fL (9.4-12.4); Monocytes # 1.7 K/mcL (0.0-1.3); Monocytes % 7.2 %; Neutrophils # 20.7 K/mcL (1.6-8.9); Platelet Count 325 K/mcL (140-400); Red Blood Count 3.63 M/mcL (4.19-5.50); Red Cell Distribution Width 16.6 % (11.5-14.5); Segmented Neutrophils % 85.5 %
[2016-11-06 06:34] LABS: Albumin 2.7 g/dL (3.5-5.0); Albumin/Globulin Ratio 0.8 (1.1-2.2); Bilirubin,Total 1.2 mg/dL (0.2-1.2); Calcium 8.9 mg/dL (8.6-10.8); Globulin 3.5 g/dL (2.4-3.5); Potassium 4.8 mEq/L (3.5-4.5); Total Protein 6.2 g/dL (6.0-8.3)
[2016-11-06 06:49] LABS: Platelet Estimate Normal (Normal)
[2016-11-06 06:50] LABS: Polychromasia 1+ (Not Present)
[2016-11-06] MEDS ORDERED: *HR* LORazepam 2 MG/ML VIAL IVP ONE (06:54)
[2016-11-06] MEDS: 0.9 % Sodium Chloride 1,000 ML IVC SCH ×2 (09:17→19:20)
[2016-11-06] MEDS: Lisinopril 20 MG TABLET PO SCH (09:18)
[2016-11-06] MEDS: Pantoprazole 40 MG VIAL IVP SCH (09:18)
[2016-11-06] MEDS: Finasteride 5 MG TABLET PO SCH (09:18)
[2016-11-06] MEDS: *HR* Amiodarone 200 MG TABLET PO SCH (09:18)
[2016-11-06] MEDS ORDERED: Nitroglycerin 0.4 MG PATCH.TD24 TD SCH (12:30)
[2016-11-06] MEDS: *HR* Morphine 2 MG/ML SYRINGE IVP PRN ×2 (12:34→18:38)
[2016-11-06] MEDS: *HR* Enoxaparin 100 MG/ML SYRINGE SQ SCH (12:42)
--- NOTE | 2016-11-06 12:54 | Internal Med Progress Note ---
Date of Encounter: 11/06/16 Time of Encounter: 12:51 - Assessment and plan (1) Hypernatremia Current Visit: Yes Status: Acute Assessment and plan: Likely due to pancreatitis, dehydration, normal saline infusion. Change IV fluids to lactated Ringer's and continue to monitor BMP closely. (2) Acute pancreatitis Current Visit: Yes Status: Acute Assessment and plan: Patient admitted with sudden onset of abdominal pain, nausea and vomiting. CT abdomen/pelvis shows acute pancreatitis. Right upper quadrant ultrasound confirms the same, no clear evidence of acute cholecystitis, shows gallstones and mildly dilated CBD at 8 mm. MRCP shows no evidence of biliary obstruction. GI consult noted. Continue supportive care with aggressive IV hydration, bowel rest, pain control with when necessary IV morphine and when necessary antiemetics. Pain medications changed to morphine from Dilaudid as patient is noted to get significantly combative and restless with IV Dilaudid, possible adverse reaction. Noted to have worsening leukocytosis. Continue to keep nothing by mouth. Admitted with mild lactic acidosis, continue to trend serum lactic acid levels. Serum amylase and lipase noted to be trending down. Continue IV Zosyn. Monitor serum creatinine, calcium closely. High risk for complications. CODE STATUS discussed with patient's family at bedside. Patient does have a living will, his son is his medical power of health care attorney and he wishes to be DNR comfort care arrest/DNI. Qualifiers: Pancreatitis type: unspecified pancreatitis type Acute pancreatitis complication: unspecified Qualified Code(s): K85.90 - Acute pancreatitis without necrosis or infection, unspecified (3) Acute cholecystitis Current Visit: Yes Status: Ruled-out (4) CHF (congestive heart failure) Current Visit: Yes Status: Chronic Assessment and plan: Hold diuretics and continue IV hydration for now. Monitor volume status closely. Telemetry monitoring. Qualifiers: Congestive heart failure type: diastolic Congestive heart failure chronicity: chronic Qualified Code(s): I50.32 - Chronic diastolic (congestive ) heart failure (5) Hypothyroid Current Visit: Yes Status: Chronic Assessment and plan: Continue levothyroxine, will change to IV Synthroid. Qualifiers: Hypothyroidism type: unspecified Qualified Code(s): E03.9 - Hypothyroidism , unspecified (6) Hypertension Current Visit: Yes Status: Chronic Assessment and plan: Continue when necessary IV hydralazine and hold oral antihypertensives due to nothing by mouth status. Blood Pressure noted to be well controlled. Qualifiers: Hypertension type: essential hypertension Qualified Code(s): I10 - Essential (primary) hypertension (7) Hyperlipidemia Current Visit: Yes Status: Chronic Qualifiers: Hyperlipidemia type: unspecified Qualified Code(s): E78.5 - Hyperlipidemia , unspecified (8) CAD (coronary artery disease) Current Visit: Yes Status: Chronic Qualifiers: Coronary Disease-Associated Artery/Lesion type: bypass graft [place] vs. 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 (10) CVA (cerebral vascular accident) Current Visit: Yes Status: Inactive Qualifiers: CVA mechanism: unspecified Qualified Code(s): I63.9 - Cerebral infarction, unspecified (11) CKD (chronic kidney disease) stage 3, GFR 30-59 ml/min Current Visit: Yes Status: Chronic Assessment and plan: Serum creatinine noted to be stable around 1.4. Continue IV hydration, monitor closely. (12) Pulmonary embolism Current Visit: Yes Status: Chronic Assessment and plan: Patient was recently diagnosed with PE within the last month. Noted to have been on Eliquis as outpatient, which is currently changed to subcutaneous Lovenox due to NPO status. Qualifiers: Pulmonary embolism type: other Chronicity: acute Acute cor pulmonale presence: without acute cor pulmonale Qualified Code(s): I26.99 - Other pulmonary embolism without acute cor pulmonale (13) DVT (deep venous thrombosis) Current Visit: Yes Status: Acute Qualifiers: DVT location: lower extremity Affected thrombotic vein of extremity: tibial Chronicity: acute Laterality: left Qualified Code(s): I82.442 - Acute embolism and thrombosis of left tibial vein - Subjective Interval history: Resting in bed due to medications; per nursing staff, patient has been extremely combative this morning, despite 4-point restraints. Still has abdominal pain; unable to provide history, which is obtained from family at bedside. - Constitutional Vitals: Temp Pulse Resp BP Pulse Ox 95.9 F L 81 16 153/79 95 11/06/16 12:26 11/06/16 12:26 11/06/16 12:26 11/06/16 12:26 11/06/16 12:26 General appearance: Present: A&O X 0 (somnolent and confused). Absent: answers questions appropriately - Respiratory Respiratory exam: Present: CTAB. Absent: accessory muscle use, rales, rhonchi, wheezes - Cardiovascular Cardiovascular exam: Present: RRR, +S1, +S2, tachycardia. Absent: diastolic murmur, gallop, rubs, systolic murmur - GI/Abdominal GI/Abdominal exam: Present: normal bowel sounds, soft (grimaces and moans upon deep palpation of LUQ and epigastrium), no peritoneal signs. Absent: distended , tenderness - Extremities Exam Extremities exam: Present: full ROM, warm, radial pulses palpable and symetrical. Absent: calf tenderness, cyanotic, pedal edema Internal Medicine: Result - Labs CBC & Chem 7: 11/06/16 05:44 11/06/16 15:50 Labs: Short CBC 11/06/16 Range/Units 05:44 WBC 24.2 H (4.3-11.1) K/mcL Hgb 12.0 L (12.9-16.9) g/dL Hct 40.0 (37.5-50.1) % Plt Count 325 (140-400) K/mcL Neutrophils # 20.7 H (1.6-8.9) K/mcL BMP 11/06/16 05:44 Sodium 151 H Potassium 4.8 H Chloride 113 H Carbon Dioxide 26 BUN 26 Creatinine 1.46 H Glucose 96 Calcium 8.9 Cardiac Enzymes 11/05/16 11/05/16 Range/Units 10:55 16:05 Troponin I 0.02 0.02 (0-0.03) ng/mL Liver Function 11/06/16 Range/Units 05:44 Total Bilirubin 1.2 (0.2-1.2) mg/dL AST 27 (5-34) Units/L ALT 37 (0-55) Units/L Alkaline Phosphatase 153 H (38-126) Units/L Albumin 2.7 L (3.5-5.0) g/dL Urine 11/05/16 Range/Units 22:50 Urine Color Yellow (Yellow) Urine Clarity Clear (Clear) Urine pH 5.0 (5.0-8.0) pH Units Ur Specific [place] 1.024 (1.010-1.025) Urine Protein Trace (Neg-Trace) mg/dL Urine Glucose (UA) Normal (Normal) mg/dL - ABG Interpretation ABG results: PT/INR, D-dimer PT 16.4 Seconds (9.4-12.1) H 11/05/16 00:32 - Impressions Impressions Gallbladder Ultrasound 11/05/16 09:00 IMPRESSION: 1. Enlarged pancreas consistent with pancreatitis as noted on ultrasound. 2. Cholelithiasis. Mildly dilated common bile duct at 8 mm. Small quantity of nonspecific pericholecystic fluid. Absent sonographic Dietrich sign. If there is continued clinical concern for cholecystitis, hepatobiliary scan is recommended. D/ / 11/05/2016 09:43:27 Yossi Hernandez MD / arlen Interpreting Provider: Yossi Hernandez MD Consult Discharge Plan - Plan Referrals: Haroon Liriano MD [Primary Care Provider] - (Office request that patient calls to make the appt. after discharge. Thank you)
[2016-11-06] MEDS: Ringers Solution, Lactated 1,000 ML IVC SCH ×2 (13:03→23:08)
[2016-11-06 16:11] LABS: BUN/Creatinine Ratio 20 (6-26); Blood Urea Nitrogen 25 mg/dL (8-26); Calcium 8.6 mg/dL (8.6-10.8); Carbon Dioxide 27 mEq/L (19-29); Chloride 113 mEq/L (98-109); Glucose 88 mg/dL (70-99); Osmolality,Calculated 304 (280-300); Potassium 4.2 mEq/L (3.5-4.5); Sodium 145 mEq/L (136-145); eGFR For African Americans > 60 (> 60); eGFR For Non-African Americans 54 (> 60)
--- NOTE | 2016-11-06 17:32 | Electrocardiograph Report ---
[address] [address] Test Date: 2016-11-05 Pat Name: Kelvin Ralph Department: 105 Room: 3A43 Gender: M Dinkey Brakeman: BECKI : 1930 Requested By: Joshua Johnson Order Number: [id number] Reading MD: Marylu Tena Measurements Intervals [place] Rate: 47 P: 111 ID: [id number] QRS: -44 QRSD: 121 T: -11 QT: 514 QTc: 478 Interpretive Statements SINUS BRADYCARDIA WITH SINUS ARRHYTHMIA WITH FIRST DEGREE AV BLOCK LEFT ANTERIOR FASCICULAR BLOCK POSSIBLE LEFT VENTRICULAR HYPERTROPHY NONSPECIFIC ST & T-WAVE ABNORMALITY PROLONGED QT INTERVAL Electronically Signed On 11-06-2016 17:30:31 EDT by Marylu Tena
[2016-11-07] MEDS: Insulin LISPRO 300 UNITS/3 ML VIAL SQ SCH ×4 (01:05→18:35)
[2016-11-07] MEDS: *HR* Morphine 2 MG/ML SYRINGE IVP PRN ×3 (01:31→09:31)
[2016-11-07] MEDS: Piperacillin/Tazobactam 3.375 GM in D5% in Water (Mini-Bag+) 100 ML IVPB SCH ×3 (01:32→18:40)
[2016-11-07] MEDS: *HR* Dextrose 50 % in Water (Syg) 50 ML SYRINGE IVP PRN ×3 (01:34→06:49)
[2016-11-07 05:18] LABS: Basophils % 0.2 %; Eosinophils # 0.3 K/mcL (0.0-0.6); Eosinophils % 1.4 %; Hematocrit 38.4 % (37.5-50.1); Hemoglobin 11.5 g/dL (12.9-16.9); Immature Granulocytes % 2.1 % (0-4); Lymphocytes # 1.1 K/mcL (0.6-4.6); Lymphocytes % 4.9 %; Mean Corpuscular HGB Conc 29.9 g/dL (31.6-35.5); Mean Corpuscular Hemoglobin 32.1 pg (28.0-33.3); Mean Corpuscular Volume 107.3 fL (83.0-100.0); Mean Platelet Volume 10.7 fL (9.4-12.4); Monocytes # 1.5 K/mcL (0.0-1.3); Monocytes % 6.9 %; Platelet Count 258 K/mcL (140-400); Red Blood Count 3.58 M/mcL (4.19-5.50); Red Cell Distribution Width 16.3 % (11.5-14.5); Segmented Neutrophils % 84.5 %
[2016-11-07 05:21] LABS: Neutrophils # 18.8 K/mcL (1.6-8.9)
[2016-11-07 05:22] LABS: Ionized Calcium 1.19 mmol/L (1.15-1.35)
[2016-11-07 05:24] LABS: Magnesium 1.4 mg/dL (1.6-2.6)
[2016-11-07 05:35] LABS: Alanine Aminotransferase 24 Units/L (0-55); Albumin 2.4 g/dL (3.5-5.0); Albumin/Globulin Ratio 0.6 (1.1-2.2); Alkaline Phosphatase 144 Units/L (38-126); Amylase 235 Units/L (25-125); Aspartate Amino Transferase 26 Units/L (5-34); BUN/Creatinine Ratio 21 (6-26); Bilirubin,Total 1.1 mg/dL (0.2-1.2); Blood Urea Nitrogen 20 mg/dL (8-26); Calcium 8.8 mg/dL (8.6-10.8); Carbon Dioxide 28 mEq/L (19-29); Chloride 113 mEq/L (98-109); Globulin 3.7 g/dL (2.4-3.5); Glucose 83 mg/dL (70-99); Lipase 157 Units/L (8-78); Osmolality,Calculated 306 (280-300); Potassium 3.8 mEq/L (3.5-4.5); Sodium 147 mEq/L (136-145); Total Protein 6.1 g/dL (6.0-8.3); eGFR For African Americans > 60 (> 60); eGFR For Non-African Americans > 60 (> 60)
[2016-11-07 05:48] LABS: Platelet Estimate Normal (Normal)
[2016-11-07] MEDS: *HR* LORazepam 2 MG/ML VIAL IVP PRN ×3 (09:42→23:42)
[2016-11-07] MEDS: Finasteride 5 MG TABLET PO SCH (09:51)
[2016-11-07] MEDS: *HR* Amiodarone 200 MG TABLET PO SCH (09:51)
[2016-11-07] MEDS: Lisinopril 20 MG TABLET PO SCH (09:52)
[2016-11-07] MEDS: Pantoprazole 40 MG VIAL IVP SCH (09:55)
[2016-11-07] MEDS ORDERED: Magnesium Sulfate 2 GM in D5% in Water 100 ML IVPB ONE (10:26)
[2016-11-07] MEDS: D5% in Lactated Ringers 1,000 ML IVC SCH (11:09)
[2016-11-07] MEDS: *HR* Enoxaparin 100 MG/ML SYRINGE SQ SCH (11:17)
--- NOTE | 2016-11-07 13:32 | General Surgery Consult Note ---
Date of Encounter: 11/07/16 Time of Encounter: 13:29 Assessment and Plan (1) Acute pancreatitis Current Visit: Yes Status: Acute Monitor labs Will revaluate in the am, hopefully he will be less obtunded at that time. Will consider consult to IR for percutaneous cholecystostomy drain placement as pt is a poor surgical candidate at this time. Continue supportive care and discomfort management at this time. Qualifiers: Pancreatitis type: unspecified pancreatitis type Acute pancreatitis complication: unspecified Qualified Code(s): K85.90 - Acute pancreatitis without necrosis or infection, unspecified (2) Acute cholecystitis Current Visit: Yes Status: Ruled-out See plan above (3) Abdominal pain Current Visit: Yes Status: Acute Likely 2/2 #1 and 2 above. See assessment and plan above Qualifiers: Abdominal location: upper abdomen, unspecified Qualified Code(s): R10.10 - Upper abdominal pain, unspecified (4) Confusion Current Visit: Yes Status: Acute Management per medicine. Will continue to monitor. (5) CAD (coronary artery disease) Current Visit: Yes Status: Chronic Qualifiers: Coronary Disease-Associated Artery/Lesion type: bypass graft [place] vs. transplanted heart: [place] heart Associated angina: without angina Qualified Code(s): I25.810 - Atherosclerosis of coronary artery bypass graft(s) without angina pectoris (6) CHF (congestive heart failure) Current Visit: Yes Status: Chronic Qualifiers: Congestive heart failure type: diastolic Congestive heart failure chronicity: chronic Qualified Code(s): I50.32 - Chronic diastolic (congestive ) heart failure (7) CKD (chronic kidney disease) stage 3, GFR 30-59 ml/min Current Visit: Yes Status: Chronic Management per medicine. Will continue to monitor (8) Pulmonary embolism Current Visit: Yes Status: Chronic Currently on Eliquis. Management per medicine. Qualifiers: Pulmonary embolism type: other Chronicity: acute Acute cor pulmonale presence: without acute cor pulmonale Qualified Code(s): I26.99 - Other pulmonary embolism without acute cor pulmonale (9) TIA (transient ischemic attack) Current Visit: No Status: Acute Qualifiers: Transient cerebral ischemia type: unspecified Qualified Code(s): G45.9 - Transient cerebral ischemic attack, unspecified History of Present Illness Consult date: 11/07/16 Reason for consult: gallstones (gallstone pancreatitis) Requesting physician: Ngoc Carmona History of present illness: HPI is limited to chart review and bedside RN report as pt is currently obtunded and also has history of acute confusion this visit. Per record review, Kelvin has a contributory medical history including DVT, PE, TIA, ASHD, chronic CHF, CKD stage III, and anticoagulant usage (eliquis), and a past surgical history of CABG (details unknown). He is noted to have code status of DNRCC-A Per record review, Mr. Ralph presented on 11/05/2016 with complaints of abdominal pain, nausea, and vomiting. He had been in rehab for a recent pulmonary embolism, DVT, and TIA. Prior to those events he was apparently independent in assisted living. He described the pain in the mid-upper abdomen and surrounding the umbilicus as constant and cramping. He denied aggravating or alleviating factors. He was evaluated in the emergency department and revealed elevated lipase and the CT of the abdomen revealed acute pancreatitis with cholelithiasis in. [place] cystic fluid. He was started on empiric Flagyl and Cipro. G.I. was consulted and per their consult note, the patient was unaware of prior endoscopies, denied blood in stool or diarrhea. In MRCP was recommended and noted to be negative for the common bile duct stone. G.I. recommended IV fluid and discomfort control. He has received today lauded and morphine for pain control and per the bedside RN both of which have seemed to have caused some acute confusion/encephalopathy that has required the use of restraints for safety as well as lorazepam usage for anxiety. We have been asked to see the patient for consideration of possible surgical interventions related to gallstone pancreatitis. Past Med Surg Social Fam HX - Past Medical History Source: old records reviewed, nursing notes reviewed Medical history: atrial fibrillation, CHF, coronary artery disease, DVT, hyperlipidemia, hypertension, renal disease, thyroid disease, TIA, other ( Recently diagnosed pulmonary embolism) Psychiatric history: no psych history - Past Surgical History Surgical History: coronary bypass (CABG) - Social History Smoking Status: Never smoker Smokeless Tobacco Status: No Alcohol use: none Drug use: none - Family History Mother Hx Family Cardiac Disorders: No Hx Family Respiratory Disorders: No Hx Family Cancer: No Hx Family GI Disorders: Yes (stomach acid) Hx Family Endocrine Disorder: No Hx Family Neuromuscular Disorders: No Hx Family Neurologic Disorders: No Hx Family HEENT Disorders: No Hx Family Autoimmune Disorders: No Father Hx Family Cardiac Disorders: Yes ([place]) Hx Family Respiratory Disorders: No Hx Family Cancer: No Hx Family GI Disorders: No Hx Family Endocrine Disorder: No Hx Family Neuromuscular Disorders: No Hx Family Neurologic Disorders: No Hx Family HEENT Disorders: No Hx Family Autoimmune Disorders: No Medications and Allergies Amiodarone HCl [Pacerone] 200 mg PO DAILY 02/18/16 [History] Atorvastatin Calcium [Lipitor] 80 mg PO HS 02/18/16 [History] Finasteride [Proscar] 5 mg PO DAILY 02/18/16 [History] Furosemide [Lasix] 40 mg PO DAILY 02/18/16 [History] Levothyroxine Sodium [Levoxyl] 50 mcg PO QAM 02/18/16 [History] Oxybutynin Chloride [Ditropan Xl] 10 mg PO HS 02/18/16 [History] Potassium Chloride [Klor-Con Sprinkle] 20 meq PO BID 02/18/16 [History] Galantamine HBr [Razadyne ER] 24 mg PO DAILY 09/01/16 [History] Loratadine [Allergy Relief] 10 mg PO DAILY PRN 09/01/16 [History] Apixaban [Eliquis] 2.5 mg PO BID 11/05/16 [History] Cholecalciferol (D-3) [Vitamin D] 2,000 unit PO DAILY 11/05/16 [History] Cyanocobalamin (Vitamin B-12) [Vitamin B-12] 1,000 mcg SL DAILY 11/05/16 [ History] Lisinopril [Zestril] 20 mg PO DAILY 11/05/16 [History] guaiFENesin [Guaifenesin] 800 mg PO TID 11/05/16 [History] Allergies acetaminophen [From Percocet] Adverse Reaction (Verified 11/05/16 08:16) Hallucinating Oxycodone [From Percocet] Adverse Reaction (Verified 11/05/16 08:16) Hallucinating Review of Systems ROS unobtainable: due to mental status (See HPI) All systems PM: A 10-system review of systems was performed and is negative for pertinent findings except as documented above in the HPI. General Surgery Exam Initial Vital Signs Temp Pulse Resp BP Pulse Ox 97.5 F L 64 18 165/69 95 07/23/17 23:24 11/04/16 23:24 11/04/16 23:24 11/04/16 23:24 11/04/16 23:24 - General physical appearance no distress, other (Pt is obtunded, but responds to palpation of the upper abdomen by grimacing and moaning) - Eyes other - ENT normal mucosa, atraumatic, normocephalic - Neck trachea midline - Respiratory clear to auscultation, other (Decreased bibasilar) - Cardiovascular Cardiovascular exam: Present: RRR, murmurs - Abdomen Abdomen general surgery: Present: bowel sounds present, soft, tender Abdominal Tenderness: Present: RUQ, LUQ - Integumentary Integumentary general surgery: Present: warm and dry, other (multiple skin tears noted) - Neurologic Present: other (obtunded) - Musculoskeletal Present: other (BL wrist restraints noted) - Psychiatric Psychiatric general surgery: Present: other (obtunded) Exam Initial Vital Signs Temp Pulse Resp BP Pulse Ox 97.5 F L 64 18 165/69 95 11/04/16 23:24 11/04/16 23:24 11/04/16 23:24 11/04/16 23:24 11/04/16 23:24 Results - Labs 11/07/16 04:45 11/07/16 04:45 Abnormal lab results WBC 22.2 K/mcL (4.3-11.1) H 11/07/16 04:45 RBC 3.58 M/mcL (4.19-5.50) L 11/07/16 04:45 Hgb 11.5 g/dL (12.9-16.9) L 11/07/16 04:45 MCV 107.3 fL (83.0-100.0) H 11/07/16 04:45 MCHC 29.9 g/dL (31.6-35.5) L 11/07/16 04:45 RDW 16.3 % (11.5-14.5) H 11/07/16 04:45 Neutrophils # 18.8 K/mcL (1.6-8.9) H 11/07/16 04:45 Monocytes # 1.5 K/mcL (0.0-1.3) H 11/07/16 04:45 Polychromasia 1+ (Not Present) A 11/06/16 05:44 PT 16.4 Seconds (9.4-12.1) H 11/05/16 00:32 Sodium 147 mEq/L (136-145) H 11/07/16 04:45 Chloride 113 mEq/L (98-109) H 11/07/16 04:45 Calculated Osmolality 306 (280-300) H 11/07/16 04:45 Magnesium 1.4 mg/dL (1.6-2.6) L 11/07/16 04:45 Direct Bilirubin 1.0 mg/dL (0.0-0.5) H 11/04/16 23:48 Alkaline Phosphatase 144 Units/L (38-126) H 11/07/16 04:45 B-Natriuretic Peptide 336 pg/mL (0-100) H 11/05/16 05:04 Albumin 2.4 g/dL (3.5-5.0) L 11/07/16 04:45 Globulin 3.7 g/dL (2.4-3.5) H 11/07/16 04:45 Albumin/Globulin Ratio 0.6 (1.1-2.2) L 11/07/16 04:45 Amylase 235 Units/L (25-125) H 11/07/16 04:45 Lipase 157 Units/L (8-78) H 11/07/16 04:45 Ur Squamous Epith Cells Many per lpf (None-Few) H 11/05/16 22:50 Diabetes panel 11/06/16 11/07/16 Range/Units 15:50 04:45 Sodium 145 147 H (136-145) mEq/L Potassium 4.2 3.8 (3.5-4.5) mEq/L Chloride 113 H 113 H (98-109) mEq/L Carbon Dioxide 27 28 (19-29) mEq/L BUN 25 20 (8-26) mg/dL Creatinine 1.27 H 0.95 (0.72-1.25) mg/dL Glucose 88 83 (70-99) mg/dL Calcium 8.6 8.8 (8.6-10.8) mg/dL AST 26 (5-34) Units/L ALT 24 (0-55) Units/L Alkaline Phosphatase 144 H (38-126) Units/L Albumin 2.4 L (3.5-5.0) g/dL Calcium panel 11/06/16 11/07/16 Range/Units 15:50 04:45 Calcium 8.6 8.8 (8.6-10.8) mg/dL Albumin 2.4 L (3.5-5.0) g/dL Pituitary panel 11/06/16 11/07/16 Range/Units 15:50 04:45 Sodium 145 147 H (136-145) mEq/L Potassium 4.2 3.8 (3.5-4.5) mEq/L Chloride 113 H 113 H (98-109) mEq/L Carbon Dioxide 27 28 (19-29) mEq/L BUN 25 20 (8-26) mg/dL Creatinine 1.27 H 0.95 (0.72-1.25) mg/dL Glucose 88 83 (70-99) mg/dL Calcium 8.6 8.8 (8.6-10.8) mg/dL Adrenal panel 11/06/16 11/07/16 Range/Units 15:50 04:45 Sodium 145 147 H (136-145) mEq/L Potassium 4.2 3.8 (3.5-4.5) mEq/L Chloride 113 H 113 H (98-109) mEq/L Carbon Dioxide 27 28 (19-29) mEq/L BUN 25 20 (8-26) mg/dL Creatinine 1.27 H 0.95 (0.72-1.25) mg/dL Glucose 88 83 (70-99) mg/dL Calcium 8.6 8.8 (8.6-10.8) mg/dL Total Bilirubin 1.1 (0.2-1.2) mg/dL AST 26 (5-34) Units/L ALT 24 (0-55) Units/L Alkaline Phosphatase 144 H (38-126) Units/L Albumin 2.4 L (3.5-5.0) g/dL All other labs normal. - Imaging Additional studies: Abdomen MRI 11/05/16 00:00 IMPRESSION: Limited by motion. No obstructing distal common duct filling defects seen Moderate peripancreatic inflammatory change, compatible with pancreatitis. Appearance appears similar compared to recent CT scan D/ / Artis Sandoval MD / Artis Sandoval MD Interpreting Provider: Artis Sandoval MD Abdomen/Pelvis CT 11/05/16 00:53 IMPRESSION: 1. Acute pancreatitis. There is cholelithiasis with pericholecystic fluid which may be secondary to pancreatitis though may also indicate acute cholecystitis. 2. Diverticulosis without scan evidence for diverticulitis. 3. Left-sided gynecomastia. D/ / Bubba Best MD / Bubba Best MD Interpreting Provider: Bubba Best MD Gallbladder Ultrasound 11/05/16 09:00 IMPRESSION: 1. Enlarged pancreas consistent with pancreatitis as noted on ultrasound. 2. Cholelithiasis. Mildly dilated common bile duct at 8 mm. Small quantity of nonspecific pericholecystic fluid. Absent sonographic Dietrich sign. If there is continued clinical concern for cholecystitis, hepatobiliary scan is recommended. D/ / 11/05/2016 09:43:27 Yossi Hernandez MD / arlen Interpreting Provider: Yossi Hernandez MD Consult Discharge Plan - Plan Referrals: Haroon Liriano MD [Primary Care Provider] - (Office request that patient calls to make the appt. after discharge. Thank you)
--- NOTE | 2016-11-07 15:41 | Internal Med Progress Note ---
Date of Encounter: 11/07/16 Time of Encounter: 11:50 - Assessment and plan (1) Acute encephalopathy Current Visit: Yes Status: Acute Assessment and plan: Likely metabolic/drug-induced due to use of IV Dilaudid and morphine and underlying acute pancreatitis. Continue to monitor closely and treat underlying condition. Continue 4. restraints for patient safety along with when necessary IV Ativan. Fall precautions. (2) Hypernatremia Current Visit: Yes Status: Acute Assessment and plan: Likely due to pancreatitis, dehydration, normal saline infusion. Improving, continue IV hydration. (3) Acute pancreatitis Current Visit: Yes Status: Acute Assessment and plan: Patient admitted with sudden onset of abdominal pain, nausea and vomiting, suggestive of gallstone pancreatitis. CT abdomen/pelvis shows acute pancreatitis. Right upper quadrant ultrasound confirms the same, no clear evidence of acute cholecystitis, shows gallstones and mildly dilated CBD at 8 mm. MRCP shows no evidence of biliary obstruction. GI consult noted. Continue supportive care with aggressive IV hydration, bowel rest, pain control with when necessary IV morphine and when necessary antiemetics. Patient continues to have abdominal pain and tenderness along with leukocytosis. Continue IV Zosyn. Serum amylase and lipase continued to trend down. Lactic acidosis resolved. Electrolytes within normal limits except mild hypomagnesemia , which is being supplemented with IV magnesium sulfate. Surgery consult for possible cholecystectomy. Qualifiers: Pancreatitis type: unspecified pancreatitis type Acute pancreatitis complication: unspecified Qualified Code(s): K85.90 - Acute pancreatitis without necrosis or infection, unspecified (4) CHF (congestive heart failure) Current Visit: Yes Status: Chronic Assessment and plan: Hold diuretics and continue IV hydration for now. Monitor volume status closely. Telemetry monitoring. Qualifiers: Congestive heart failure type: diastolic Congestive heart failure chronicity: chronic Qualified Code(s): I50.32 - Chronic diastolic (congestive ) heart failure (5) Hypothyroid Current Visit: Yes Status: Chronic Assessment and plan: Continue levothyroxine, will change to IV Synthroid. Qualifiers: Hypothyroidism type: unspecified Qualified Code(s): E03.9 - Hypothyroidism , unspecified (6) Hypertension Current Visit: Yes Status: Chronic Assessment and plan: Continue when necessary IV hydralazine and hold oral antihypertensives due to nothing by mouth status. Blood Pressure noted to be well controlled. Qualifiers: Hypertension type: essential hypertension Qualified Code(s): I10 - Essential (primary) hypertension (7) Hyperlipidemia Current Visit: Yes Status: Chronic Qualifiers: Hyperlipidemia type: unspecified Qualified Code(s): E78.5 - Hyperlipidemia , unspecified (8) CAD (coronary artery disease) Current Visit: Yes Status: Chronic Assessment and plan: History of coronary artery disease and CABG troponin mildly elevated and we believe they reflect demand ischemia Qualifiers: Coronary Disease-Associated Artery/Lesion type: bypass graft [place] vs. transplanted heart: [place] heart Associated angina: without angina Qualified Code(s): I25.810 - Atherosclerosis of coronary artery bypass graft(s) without angina pectoris (9) Bladder outlet obstruction Current Visit: Yes Status: Chronic (10) CKD (chronic kidney disease) stage 3, GFR 30-59 ml/min Current Visit: Yes Status: Chronic Assessment and plan: Serum creatinine noted to be stable around 1.4. Continue IV hydration, monitor closely. (11) Pulmonary embolism Current Visit: Yes Status: Chronic Assessment and plan: Patient was recently diagnosed with PE within the last month. Noted to have been on Eliquis as outpatient, which is currently changed to subcutaneous Lovenox due to NPO status. Qualifiers: Pulmonary embolism type: other Chronicity: acute Acute cor pulmonale presence: without acute cor pulmonale Qualified Code(s): I26.99 - Other pulmonary embolism without acute cor pulmonale (12) DVT (deep venous thrombosis) Current Visit: Yes Status: Acute Qualifiers: DVT location: lower extremity Affected thrombotic vein of extremity: tibial Chronicity: acute Laterality: left Qualified Code(s): I82.442 - Acute embolism and thrombosis of left tibial vein - Subjective Interval history: Resting in bed with eyes closed. Currently drowsy and unable to answer questions due to receiving IV Ativan. Per nursing staff, noted to be extremely confused and combative and removing IV lines and telemetry leads earlier this morning and calmed down after receiving Ativan. - Constitutional Vitals: Temp Pulse Resp BP Pulse Ox 987.2 F H 80 18 127/68 94 11/07/16 15:27 11/07/16 15:27 11/07/16 15:27 11/07/16 15:27 11/07/16 15:27 General appearance: Present: A&O X 0 (somnolent and confused). Absent: answers questions appropriately - Respiratory Respiratory exam: Present: CTAB (anterolaterally B/L). Absent: accessory muscle use, rales, rhonchi, wheezes - Cardiovascular Cardiovascular exam: Present: RRR, +S1, +S2. Absent: diastolic murmur, gallop, rubs, systolic murmur - GI/Abdominal GI/Abdominal exam: Present: normal bowel sounds, soft (Grimacing and moaning noted on deep palpation in epigastrium and left upper quadrant ), no peritoneal signs. Absent: distended, tenderness - Neurological Exam Neurological exam: Present: altered, no focal deficits (Noted to move all 4 extremities spontaneously but further examination cannot be completed due to mental status ). Absent: pronater drift, facial droop, speech deficit Internal Medicine: Result - Labs CBC & Chem 7: 11/07/16 04:45 11/07/16 04:45 Labs: Short CBC 11/07/16 Range/Units 04:45 WBC 22.2 H (4.3-11.1) K/mcL Hgb 11.5 L (12.9-16.9) g/dL Hct 38.4 (37.5-50.1) % Plt Count 258 (140-400) K/mcL Neutrophils # 18.8 H (1.6-8.9) K/mcL BMP 11/06/16 11/07/16 15:50 04:45 Sodium 145 147 H Potassium 4.2 3.8 Chloride 113 H 113 H Carbon Dioxide 27 28 BUN 25 20 Creatinine 1.27 H 0.95 Glucose 88 83 Calcium 8.6 8.8 Liver Function 11/07/16 Range/Units 04:45 Total Bilirubin 1.1 (0.2-1.2) mg/dL AST 26 (5-34) Units/L ALT 24 (0-55) Units/L Alkaline Phosphatase 144 H (38-126) Units/L Albumin 2.4 L (3.5-5.0) g/dL - ABG Interpretation ABG results: PT/INR, D-dimer PT 16.4 Seconds (9.4-12.1) H 11/05/16 00:32 - VTE Documentation of Mechanical Device: Intermittent pneumatic compression device Consult Discharge Plan - Plan Referrals: Haroon Liriano MD [Primary Care Provider] - (Office request that patient calls to make the appt. after discharge. Thank you)
[2016-11-08] MEDS: *HR* Morphine 2 MG/ML SYRINGE IVP PRN ×3 (02:41→21:20)
[2016-11-08] MEDS: Piperacillin/Tazobactam 3.375 GM in D5% in Water (Mini-Bag+) 100 ML IVPB SCH ×3 (02:41→17:55)
[2016-11-08] MEDS: Insulin LISPRO 300 UNITS/3 ML VIAL SQ SCH ×4 (02:49→17:49)
[2016-11-08 04:30] LABS: Basophils % 0.2 %; Eosinophils # 0.8 K/mcL (0.0-0.6); Eosinophils % 4.4 %; Hematocrit 34.9 % (37.5-50.1); Hemoglobin 10.5 g/dL (12.9-16.9); Immature Granulocytes % 1.4 % (0-4); Lymphocytes # 0.8 K/mcL (0.6-4.6); Lymphocytes % 4.3 %; Mean Corpuscular HGB Conc 30.1 g/dL (31.6-35.5); Mean Corpuscular Hemoglobin 31.7 pg (28.0-33.3); Mean Corpuscular Volume 105.4 fL (83.0-100.0); Mean Platelet Volume 10.7 fL (9.4-12.4); Monocytes # 1.3 K/mcL (0.0-1.3); Monocytes % 7.3 %; Neutrophils # 15.1 K/mcL (1.6-8.9); Platelet Count 219 K/mcL (140-400); Red Blood Count 3.31 M/mcL (4.19-5.50); Red Cell Distribution Width 15.9 % (11.5-14.5); Segmented Neutrophils % 82.4 %
[2016-11-08 04:51] LABS: Alanine Aminotransferase 18 Units/L (0-55); Albumin/Globulin Ratio 0.6 (1.1-2.2); Alkaline Phosphatase 117 Units/L (38-126); Amylase 77 Units/L (25-125); Aspartate Amino Transferase 20 Units/L (5-34); BUN/Creatinine Ratio 18 (6-26); Bilirubin,Total 0.9 mg/dL (0.2-1.2); Blood Urea Nitrogen 14 mg/dL (8-26); Calcium 8.7 mg/dL (8.6-10.8); Carbon Dioxide 30 mEq/L (19-29); Chloride 111 mEq/L (98-109); Globulin 3.4 g/dL (2.4-3.5); Glucose 139 mg/dL (70-99); Lipase 43 Units/L (8-78); Osmolality,Calculated 301 (280-300); Potassium 3.3 mEq/L (3.5-4.5); Sodium 144 mEq/L (136-145); Total Protein 5.4 g/dL (6.0-8.3); eGFR For African Americans > 60 (> 60); eGFR For Non-African Americans > 60 (> 60)
[2016-11-08 06:10] LABS: Platelet Estimate Normal (Normal)
[2016-11-08] MEDS: D5% in Lactated Ringers 1,000 ML IVC SCH ×2 (06:28→21:21)
[2016-11-08] MEDS: *HR* LORazepam 2 MG/ML VIAL IVP PRN ×2 (09:38→21:33)
--- NOTE | 2016-11-08 10:19 | General Surgery Progress Note ---
Date of Encounter: 11/08/16 Time of Encounter: 10:00 - Assessment and Plan (1) Acute pancreatitis Current Visit: Yes Status: Acute Laboratory review demonstrates improvement this morning: Leukocytosis trending down from 22.2 > 18.3 Total bilirubin within normal limits at 0.9 LFTs have trended down to AST of 20 and ALT of 18 Alkaline phosphatase normal at 117 Lipases trended down to 43 We will continue with supportive care, pain control, IV hydration and IV antibiotics for today. Consent obtained. Discussed the risks, benefits, alternative and outcomes with his son and is in agreement to proceed with laproscopic cholecystectomy with Dr. Ace in the next 24 hours. - Holding Lovenox and restarting Saturday Qualifiers: Pancreatitis type: unspecified pancreatitis type Acute pancreatitis complication: unspecified Qualified Code(s): K85.90 - Acute pancreatitis without necrosis or infection, unspecified (2) Acute cholecystitis Current Visit: Yes Status: Ruled-out See above (3) Abdominal pain Current Visit: Yes Status: Acute Qualifiers: Abdominal location: upper abdomen, unspecified Qualified Code(s): R10.10 - Upper abdominal pain, unspecified (4) Pulmonary embolism Current Visit: Yes Status: Chronic Patient has been on home Elliquis but due to his nothing by mouth status he is on Lovenox. Medicine is managing. Qualifiers: Pulmonary embolism type: other Chronicity: acute Acute cor pulmonale presence: without acute cor pulmonale Qualified Code(s): I26.99 - Other pulmonary embolism without acute cor pulmonale (5) Confusion Current Visit: Yes Status: Acute Patient is currently obtunded on exam as morning. He was given 2 mg morphine at 2:41 earlier this morning as well as 2 mg of Ativan at 9:38. Per nursing-patient was quite combative and confused yesterday and required bilateral arm restraints. Management per medicine (6) CAD (coronary artery disease) Current Visit: Yes Status: Chronic Qualifiers: Coronary Disease-Associated Artery/Lesion type: bypass graft [place] vs. transplanted heart: [place] heart Associated angina: without angina Qualified Code(s): I25.810 - Atherosclerosis of coronary artery bypass graft(s) without angina pectoris (7) TIA (transient ischemic attack) Current Visit: No Status: Acute Qualifiers: Transient cerebral ischemia type: unspecified Qualified Code(s): G45.9 - Transient cerebral ischemic attack, unspecified (8) REMEDIOS (acute kidney injury) Current Visit: Yes Status: Resolved IV fluids Creatinine trended down to normal at 0.76 Management per medicine (9) CHF (congestive heart failure) Current Visit: Yes Status: Chronic Management per medicine Qualifiers: Congestive heart failure type: diastolic Congestive heart failure chronicity: chronic Qualified Code(s): I50.32 - Chronic diastolic (congestive ) heart failure (10) Hypokalemia Current Visit: No Status: Acute Potassium of 3.3. Replacing. Recheck tomorrow Subjective Narrative: Patient is lying in bed with his eyes shut. He is not responding to questions. Patient received 2 mg morphine at 2:41 early this morning as well as 2 mg of Ativan at 9:38 this morning. Dilaudid was discontinued yesterday. Restraints are present. Objective Vital Signs - Last 8 Hours Temp Pulse Resp BP Pulse Ox 11/08/16 07:45 97.4 F L 80 16 171/84 98 11/08/16 03:54 97.8 F 83 20 157/67 98 Intake and Output 11/07/16 11/08/16 11/08/16 23:59 07:59 15:59 Intake Total 1200 / 1200 100 / 100 Output Total 0 / 0 0 / 0 Balance 1200 / 1200 100 / 100 Intake: IV Fluids 1200 / 1200 100 / 100 D5% & Lact. Ringers 1000 1000 / 1000 Ml Bag 1,000 ML @ 100 mls /hr IVC .Q10H [facility] Rx#: [id number] Zosyn 3.375 GM In 200 / 200 100 / 100 Dextrose 5% (Minibag+) 100 ML 100 ML @ 25 mls/hr IVPB Q8H [facility] Rx#: [id number] Oral 0 / 0 Output: Urine 0 / 0 0 / 0 Other: Meal NPO # Urine Diapers 1 1 # Bowel Movements 0 Weight 86.4 kg Blood Glucose* 104 138 Patient Weight 11/08/16 23:59 Weight 86.4 kg - General physical appearance well developed, well nourished, no distress, other (Patient is currently obtunded with bilateral wrist restraints.) - Eyes PERRL - ENT atraumatic, normocephalic - Neck Neck exam: trachea midline - Respiratory normal expansion, clear to auscultation - Cardiovascular Cardiovascular exam: Present: RRR, murmurs (BJ) - Abdomen Abdomen: Present: bowel sounds present, soft, tender (Grimaces on palpation to epigastric region) - Integumentary other (Multiple skin tears with dressings present) - Psychiatric other (Obtunded) - Labs 11/08/16 04:03 11/08/16 04:03 Short CBC 11/08/16 Range/Units 04:03 WBC 18.3 H (4.3-11.1) K/mcL Hgb 10.5 L (12.9-16.9) g/dL Hct 34.9 L (37.5-50.1) % Plt Count 219 (140-400) K/mcL Neutrophils # 15.1 H (1.6-8.9) K/mcL BMP 11/08/16 Range/Units 04:03 Sodium 144 (136-145) mEq/L Potassium 3.3 L (3.5-4.5) mEq/L Chloride 111 H (98-109) mEq/L Carbon Dioxide 30 H (19-29) mEq/L BUN 14 (8-26) mg/dL Creatinine 0.76 (0.72-1.25) mg/dL Glucose 139 H (70-99) mg/dL Calcium 8.7 (8.6-10.8) mg/dL Liver Function 11/08/16 Range/Units 04:03 Total Bilirubin 0.9 (0.2-1.2) mg/dL AST 20 (5-34) Units/L ALT 18 (0-55) Units/L Alkaline Phosphatase 117 (38-126) Units/L Albumin 2.0 L (3.5-5.0) g/dL Vital Signs Temp Pulse Resp BP Pulse Ox 11/08/16 08:40 96 11/08/16 07:45 97.4 F L 80 16 171/84 98 11/08/16 03:54 97.8 F 83 20 157/67 98 11/07/16 23:25 99.3 F 77 18 176/79 96 11/07/16 22:40 97.8 F 83 20 157/67 98 11/07/16 20:40 97.8 F 83 20 157/67 98 11/07/16 20:03 98.5 F 91 18 170/84 96 11/07/16 15:27 987.2 F H 80 18 127/68 94 Intake and Output 11/07/16 11/08/16 11/08/16 23:59 07:59 15:59 Intake Total 1200 / 1200 100 / 100 Output Total 0 / 0 0 / 0 Balance 1200 / 1200 100 / 100 Intake: IV Fluids 1200 / 1200 100 / 100 D5% & Lact. Ringers 1000 1000 / 1000 Ml Bag 1,000 ML @ 100 mls /hr IVC .Q10H [facility] Rx#: [id number] Zosyn 3.375 GM In 200 / 200 100 / 100 Dextrose 5% (Minibag+) 100 ML 100 ML @ 25 mls/hr IVPB Q8H [facility] Rx#: [id number] Oral 0 / 0 Output: Urine 0 / 0 0 / 0 Other: Meal NPO # Urine Diapers 1 1 # Bowel Movements 0 Weight 86.4 kg Blood Glucose* 104 138 Patient Weight 11/08/16 23:59 Weight 86.4 kg - VTE Documentation of Mechanical Device: Intermittent pneumatic compression device Consult Discharge Plan - Plan Referrals: Haroon Liriano MD [Primary Care Provider] - (Office request that patient calls to make the appt. after discharge. Thank you)
[2016-11-08] MEDS: Pantoprazole 40 MG VIAL IVP SCH (10:21)
[2016-11-08] MEDS: Finasteride 5 MG TABLET PO SCH (10:54)
[2016-11-08] MEDS: *HR* Amiodarone 200 MG TABLET PO SCH (10:54)
[2016-11-08] MEDS: Lisinopril 20 MG TABLET PO SCH (10:54)
--- NOTE | 2016-11-08 15:48 | Internal Med Progress Note ---
Date of Encounter: 11/08/16 Time of Encounter: 10:50 - Assessment and plan (1) Acute encephalopathy Current Visit: Yes Status: Acute Assessment and plan: Likely metabolic/drug-induced due to use of IV Dilaudid and morphine and underlying acute pancreatitis. Continue to monitor closely and treat underlying condition. Continue 4. restraints for patient safety along with when necessary IV Ativan. Fall precautions. (2) Hypernatremia Current Visit: Yes Status: Acute Assessment and plan: Likely due to pancreatitis, dehydration, normal saline infusion. Improving, continue IV hydration with D5LR. (3) Acute pancreatitis Current Visit: Yes Status: Acute Assessment and plan: Patient admitted with sudden onset of abdominal pain, nausea and vomiting, suggestive of gallstone pancreatitis. CT abdomen/pelvis shows acute pancreatitis. Right upper quadrant ultrasound confirms the same, no clear evidence of acute cholecystitis, shows gallstones and mildly dilated CBD at 8 mm. MRCP shows no evidence of biliary obstruction. Continue supportive care with aggressive IV hydration, bowel rest, pain control with when necessary IV morphine and when necessary antiemetics. Patient continues to have abdominal pain and tenderness along with leukocytosis, which is slightly improving today. Continue IV Zosyn. Serum amylase and lipase normalized. Lactic acidosis resolved. Electrolytes within normal limits except mild hypokalemia, which is being supplemented with IV potassium chloride. Surgery consulted . Laparoscopic cholecystectomy versus IR guided cholecystostomy placement. Qualifiers: Pancreatitis type: unspecified pancreatitis type Acute pancreatitis complication: unspecified Qualified Code(s): K85.90 - Acute pancreatitis without necrosis or infection, unspecified (4) CHF (congestive heart failure) Current Visit: Yes Status: Chronic Qualifiers: Congestive heart failure type: diastolic Congestive heart failure chronicity: chronic Qualified Code(s): I50.32 - Chronic diastolic (congestive ) heart failure (5) Hypothyroid Current Visit: Yes Status: Chronic Assessment and plan: Continue levothyroxine, will change to IV Synthroid. Qualifiers: Hypothyroidism type: unspecified Qualified Code(s): E03.9 - Hypothyroidism , unspecified (6) Hypertension Current Visit: Yes Status: Chronic Qualifiers: Hypertension type: essential hypertension Qualified Code(s): I10 - Essential (primary) hypertension (7) Hyperlipidemia Current Visit: Yes Status: Chronic Qualifiers: Hyperlipidemia type: unspecified Qualified Code(s): E78.5 - Hyperlipidemia , unspecified (8) CAD (coronary artery disease) Current Visit: Yes Status: Chronic Assessment and plan: History of coronary artery disease and CABG troponin mildly elevated and we believe they reflect demand ischemia Qualifiers: Coronary Disease-Associated Artery/Lesion type: bypass graft [place] vs. transplanted heart: [place] heart Associated angina: without angina Qualified Code(s): I25.810 - Atherosclerosis of coronary artery bypass graft(s) without angina pectoris (9) Bladder outlet obstruction Current Visit: Yes Status: Chronic (10) CKD (chronic kidney disease) stage 3, GFR 30-59 ml/min Current Visit: Yes Status: Chronic (11) Pulmonary embolism Current Visit: Yes Status: Chronic Assessment and plan: Patient was recently diagnosed with PE within the last month. Noted to have been on Eliquis as outpatient, which is currently changed to subcutaneous Lovenox due to NPO status. Qualifiers: Pulmonary embolism type: other Chronicity: acute Acute cor pulmonale presence: without acute cor pulmonale Qualified Code(s): I26.99 - Other pulmonary embolism without acute cor pulmonale (12) DVT (deep venous thrombosis) Current Visit: Yes Status: Acute Qualifiers: DVT location: lower extremity Affected thrombotic vein of extremity: tibial Chronicity: acute Laterality: left Qualified Code(s): I82.442 - Acute embolism and thrombosis of left tibial vein - Subjective Interval history: Resting in bed with eyes closed. Currently drowsy due to receiving Ativan prior to my evaluation, but occasionally moans and groans, unable to follow commands. Continues to be in restraints. Requests "not to push on his belly". - Constitutional Vitals: Temp Pulse Resp BP Pulse Ox 98.0 F 90 22 145/68 95 11/08/16 14:53 11/08/16 14:53 11/08/16 14:53 11/08/16 14:53 11/08/16 14:53 General appearance: Present: A&O X 0 (somnolent and disoriented). Absent: answers questions appropriately - Respiratory Respiratory exam: Present: CTAB (anterolaterally B/L). Absent: accessory muscle use, rales, rhonchi, wheezes - Cardiovascular Cardiovascular exam: Present: RRR, +S1, +S2. Absent: diastolic murmur, gallop, rubs, systolic murmur - GI/Abdominal GI/Abdominal exam: Present: normal bowel sounds, soft (Obese, noted to have morning and grimacing to palpation in epigastrium and left upper quadrant areas. ), no peritoneal signs. Absent: distended, tenderness - Extremities Exam Extremities exam: Present: warm, radial pulses palpable and symetrical. Absent : calf tenderness, cyanotic, pedal edema Internal Medicine: Result - Labs CBC & Chem 7: 11/08/16 04:03 11/08/16 04:03 Labs: Short CBC 11/08/16 Range/Units 04:03 WBC 18.3 H (4.3-11.1) K/mcL Hgb 10.5 L (12.9-16.9) g/dL Hct 34.9 L (37.5-50.1) % Plt Count 219 (140-400) K/mcL Neutrophils # 15.1 H (1.6-8.9) K/mcL BMP 11/08/16 04:03 Sodium 144 Potassium 3.3 L Chloride 111 H Carbon Dioxide 30 H BUN 14 Creatinine 0.76 Glucose 139 H Calcium 8.7 Liver Function 11/08/16 Range/Units 04:03 Total Bilirubin 0.9 (0.2-1.2) mg/dL AST 20 (5-34) Units/L ALT 18 (0-55) Units/L Alkaline Phosphatase 117 (38-126) Units/L Albumin 2.0 L (3.5-5.0) g/dL - ABG Interpretation ABG results: PT/INR, D-dimer PT 16.4 Seconds (9.4-12.1) H 11/05/16 00:32 - VTE Documentation of Mechanical Device: Intermittent pneumatic compression device Consult Discharge Plan - Plan Referrals: Haroon Liriano MD [Primary Care Provider] - (Office request that patient calls to make the appt. after discharge. Thank you)
[2016-11-08] MEDS ORDERED: *HR* Enoxaparin 100 MG/ML SYRINGE SQ SCH (18:00)
[2016-11-09] MEDS: Insulin LISPRO 300 UNITS/3 ML VIAL SQ SCH ×4 (00:39→18:54)
[2016-11-09] MEDS: Piperacillin/Tazobactam 3.375 GM in D5% in Water (Mini-Bag+) 100 ML IVPB SCH ×3 (02:10→18:42)
[2016-11-09] MEDS: D5% in Lactated Ringers 1,000 ML IVC SCH ×2 (06:22→18:37)
[2016-11-09] MEDS: *HR* Morphine 2 MG/ML SYRINGE IVP PRN ×2 (06:22→22:00)
[2016-11-09 06:44] LABS: Hematocrit 35.5 % (37.5-50.1); Hemoglobin 10.9 g/dL (12.9-16.9); Mean Corpuscular HGB Conc 30.7 g/dL (31.6-35.5); Mean Corpuscular Hemoglobin 31.9 pg (28.0-33.3); Mean Corpuscular Volume 103.8 fL (83.0-100.0); Mean Platelet Volume 11.2 fL (9.4-12.4); Platelet Count 218 K/mcL (140-400); Red Blood Count 3.42 M/mcL (4.19-5.50); Red Cell Distribution Width 15.9 % (11.5-14.5)
[2016-11-09 06:59] LABS: Alanine Aminotransferase 16 Units/L (0-55); Albumin/Globulin Ratio 0.5 (1.1-2.2); Alkaline Phosphatase 115 Units/L (38-126); Amylase 30 Units/L (25-125); Aspartate Amino Transferase 17 Units/L (5-34); BUN/Creatinine Ratio 13 (6-26); Bilirubin,Total 0.9 mg/dL (0.2-1.2); Blood Urea Nitrogen 10 mg/dL (8-26); Calcium 8.7 mg/dL (8.6-10.8); Carbon Dioxide 30 mEq/L (19-29); Chloride 109 mEq/L (98-109); Globulin 3.6 g/dL (2.4-3.5); Glucose 158 mg/dL (70-99); Lipase 14 Units/L (8-78); Magnesium 1.5 mg/dL (1.6-2.6); Osmolality,Calculated 300 (280-300); Sodium 144 mEq/L (136-145); Total Protein 5.5 g/dL (6.0-8.3); eGFR For African Americans > 60 (> 60); eGFR For Non-African Americans > 60 (> 60)
[2016-11-09 07:00] LABS: Albumin 1.9 g/dL (3.5-5.0)
[2016-11-09 07:41] LABS: Eosinophils # 1.9 K/mcL (0.0-0.6); Lymphocytes # 2.2 K/mcL (0.6-4.6); Neutrophils # 11.5 K/mcL (1.6-8.9); Platelet Estimate Normal (Normal)
[2016-11-09] MEDS: Lisinopril 20 MG TABLET PO SCH (07:53)
[2016-11-09] MEDS: *HR* Amiodarone 200 MG TABLET PO SCH (07:53)
[2016-11-09] MEDS: Finasteride 5 MG TABLET PO SCH (08:24)
[2016-11-09] MEDS: Pantoprazole 40 MG VIAL IVP SCH (08:30)
[2016-11-09] MEDS ORDERED: Levothyroxine Sodium 100 MCG VIAL IVP SCH (09:00)
[2016-11-09] MEDS ORDERED: Magnesium Sulfate 2 GM in D5% in Water 100 ML IVPB ONE (10:26)
[2016-11-09] MEDS: *HR* LORazepam 2 MG/ML VIAL IVP PRN (12:22)
--- NOTE | 2016-11-09 12:22 | Internal Med Progress Note ---
Date of Encounter: 11/09/16 Time of Encounter: 11:10 - Assessment and plan (1) Acute encephalopathy Current Visit: Yes Status: Acute Assessment and plan: Likely metabolic/drug-induced due to use of IV Dilaudid and morphine and underlying acute pancreatitis. Improving slowly. Continue to monitor closely and treat underlying condition. Continue 4. restraints for patient safety along with when necessary IV Ativan. Fall precautions. (2) Hypernatremia Current Visit: Yes Status: Resolved Assessment and plan: Improved with IV hydration with lactated Ringer's. (3) Acute pancreatitis Current Visit: Yes Status: Acute Assessment and plan: Patient admitted with sudden onset of abdominal pain, nausea and vomiting, suggestive of gallstone pancreatitis. CT abdomen/pelvis shows acute pancreatitis. Right upper quadrant ultrasound confirms the same, no clear evidence of acute cholecystitis, shows gallstones and mildly dilated CBD at 8 mm. MRCP shows no evidence of biliary obstruction. Continue supportive care with aggressive IV hydration, bowel rest, pain control with when necessary IV morphine and when necessary antiemetics. Continue IV Zosyn. Surgery consulted . Plan for Laparoscopic cholecystectomy today. Anticoagulation with Lovenox for PE has been held, to be restarted after surgery. Qualifiers: Pancreatitis type: unspecified pancreatitis type Acute pancreatitis complication: unspecified Qualified Code(s): K85.90 - Acute pancreatitis without necrosis or infection, unspecified (4) CHF (congestive heart failure) Current Visit: Yes Status: Chronic Assessment and plan: Hold diuretics and continue IV hydration for now. Monitor volume status closely. Telemetry monitoring. Qualifiers: Congestive heart failure type: diastolic Congestive heart failure chronicity: chronic Qualified Code(s): I50.32 - Chronic diastolic (congestive ) heart failure (5) Hypothyroid Current Visit: Yes Status: Chronic Assessment and plan: Continue levothyroxine,; Qualifiers: Hypothyroidism type: unspecified Qualified Code(s): E03.9 - Hypothyroidism , unspecified (6) Hypertension Current Visit: Yes Status: Chronic Assessment and plan: Continue when necessary IV hydralazine and hold oral antihypertensives due to nothing by mouth status. Blood Pressure noted to be well controlled. Qualifiers: Hypertension type: essential hypertension Qualified Code(s): I10 - Essential (primary) hypertension (7) Hyperlipidemia Current Visit: Yes Status: Chronic Qualifiers: Hyperlipidemia type: unspecified Qualified Code(s): E78.5 - Hyperlipidemia , unspecified (8) CAD (coronary artery disease) Current Visit: Yes Status: Chronic Qualifiers: Coronary Disease-Associated Artery/Lesion type: bypass graft [place] vs. transplanted heart: [place] heart Associated angina: without angina Qualified Code(s): I25.810 - Atherosclerosis of coronary artery bypass graft(s) without angina pectoris (9) Bladder outlet obstruction Current Visit: Yes Status: Chronic (10) CKD (chronic kidney disease) stage 3, GFR 30-59 ml/min Current Visit: Yes Status: Chronic (11) Pulmonary embolism Current Visit: Yes Status: Chronic Assessment and plan: Noted to have been on Eliquis as outpatient, which was changed to subcutaneous Lovenox due to NPO status, currently on hold for surgery, will restart after surgery. Continue supplemental O2. Qualifiers: Pulmonary embolism type: other Chronicity: acute Acute cor pulmonale presence: without acute cor pulmonale Qualified Code(s): I26.99 - Other pulmonary embolism without acute cor pulmonale (12) DVT (deep venous thrombosis) Current Visit: Yes Status: Acute Qualifiers: DVT location: lower extremity Affected thrombotic vein of extremity: tibial Chronicity: acute Laterality: left Qualified Code(s): I82.442 - Acute embolism and thrombosis of left tibial vein - Subjective Interval history: Noted to be better today with improving mental status; drowsy but able to answer simple questions. Able to take PO pills. Did not receive Ativan today. Awaiting surgery today. Later during the day, he was noted to be screaming and confused; - Constitutional Vitals: Temp Pulse Resp BP Pulse Ox 97.9 F 77 24 163/81 98 11/09/16 10:13 11/09/16 11:30 11/09/16 10:13 11/09/16 11:30 11/09/16 10:13 General appearance: Present: A&O X 1. Absent: answers questions appropriately - Respiratory Respiratory exam: Present: CTAB. Absent: accessory muscle use, rales, rhonchi, wheezes - Cardiovascular Cardiovascular exam: Present: RRR, +S1, +S2. Absent: diastolic murmur, gallop, rubs, systolic murmur - GI/Abdominal GI/Abdominal exam: Present: normal bowel sounds, soft (improving epigastric and LUQ tenderness), no peritoneal signs. Absent: distended, tenderness Internal Medicine: Result - Labs CBC & Chem 7: 11/09/16 05:32 11/09/16 05:32 Labs: Short CBC 11/09/16 Range/Units 05:32 WBC 15.5 H (4.3-11.1) K/mcL Hgb 10.9 L (12.9-16.9) g/dL Hct 35.5 L (37.5-50.1) % Plt Count 218 (140-400) K/mcL Neutrophils # 11.5 H (1.6-8.9) K/mcL BMP 11/09/16 05:32 Sodium 144 Potassium 3.0 L Chloride 109 Carbon Dioxide 30 H BUN 10 Creatinine 0.76 Glucose 158 H Calcium 8.7 Liver Function 11/09/16 Range/Units 05:32 Total Bilirubin 0.9 (0.2-1.2) mg/dL AST 17 (5-34) Units/L ALT 16 (0-55) Units/L Alkaline Phosphatase 115 (38-126) Units/L Albumin 1.9 L (3.5-5.0) g/dL - ABG Interpretation ABG results: PT/INR, D-dimer PT 16.4 Seconds (9.4-12.1) H 11/05/16 00:32 - VTE Documentation of Mechanical Device: Intermittent pneumatic compression device Consult Discharge Plan - Plan Referrals: Haroon Liriano MD [Primary Care Provider] - (Office request that patient calls to make the appt. after discharge. Thank you)
--- NOTE | 2016-11-09 13:44 | Anesthesia Evaluation PreOp ---
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 Other Medical History: Renal (stage 3 CKD), Thyroid, Other (H/O DVT) Anesthesia History: No Prior Anesthetic Complications, Past Anesthesia Alcohol Use: none Drug use: none Medications and Allergies Amiodarone HCl [Pacerone] 200 mg PO DAILY 02/18/16 [History] Atorvastatin Calcium [Lipitor] 80 mg PO HS 02/18/16 [History] Finasteride [Proscar] 5 mg PO DAILY 02/18/16 [History] Furosemide [Lasix] 40 mg PO DAILY 02/18/16 [History] Levothyroxine Sodium [Levoxyl] 50 mcg PO QAM 02/18/16 [History] Oxybutynin Chloride [Ditropan Xl] 10 mg PO HS 02/18/16 [History] Potassium Chloride [Klor-Con Sprinkle] 20 meq PO BID 02/18/16 [History] Galantamine HBr [Razadyne ER] 24 mg PO DAILY 09/01/16 [History] Loratadine [Allergy Relief] 10 mg PO DAILY PRN 09/01/16 [History] Apixaban [Eliquis] 2.5 mg PO BID 11/05/16 [History] Cholecalciferol (D-3) [Vitamin D] 2,000 unit PO DAILY 11/05/16 [History] Cyanocobalamin (Vitamin B-12) [Vitamin B-12] 1,000 mcg SL DAILY 11/05/16 [ History] Lisinopril [Zestril] 20 mg PO DAILY 11/05/16 [History] guaiFENesin [Guaifenesin] 800 mg PO TID 11/05/16 [History] Allergies acetaminophen [From Percocet] Adverse Reaction (Verified 11/05/16 08:16) Hallucinating Oxycodone [From Percocet] Adverse Reaction (Verified 11/05/16 08:16) Hallucinating - Meds/Allergy Pre-op Review Medications Reviewed: Yes Allergies Reviewed: Yes Beta Blockers on Current Med List: No Anesthesia Results - Labs 11/09/16 05:32 11/09/16 05:32 Laboratory Tests 11/05/16 00:32 PT 16.4 H INR 1.5 APTT 31.7 - Imaging EKG: report reviewed (11/05/2016 SINUS RHYTHM WITH FIRST DEGREE AV BLOCK LEFT ANTERIOR FASCICULAR BLOCK MODERATE VOLTAGE CRITERIA FOR LVH Poor R wave progression PROLONGED QT INTERVAL) Additional studies: 10/08/2016 Echo Impressions: LVEF 45-50%. Low normal to mild global reduction in LV systolic function with atypical septal motion. There is evidence of mild diastolic dysfunction of the left ventricle. RV is suboptimally evaluated. In the PLAX view, size appears normal and there is mild-moderate reduction in function. It is not well seen in the apical or subcostal views. No significant valvular dysfunction. No pulmonary hypertension. Anesthesia Exam Vital Signs/O2 Sat/Glucose, Most Recent Temp Pulse Resp BP Pulse Ox 97.5 F L 106 26 105/65 91 11/09/16 12:40 11/09/16 12:40 11/09/16 12:40 11/09/16 12:40 11/09/16 13:24 Blood Glucose* 124 Height: 5'11''/1.8 m Weight: 190 lbs/86.4 kg NPO (# of Hours): 8 Pain Scale Used: Unable to assess - HEENT Mallampati: III Teeth: Normal Oral Opening: Greater than 3 - COAT OPERATOR INSULATOR LOC: Confused, Uncooperative, Unable to assess - Cardiac Rhythm: Regular Murmur: None - Pulmonary Breath Sounds: bilateral Clear Respiratory Effort: Symmetrical Anesthesia Assess/Plan ASA Score: 4 Modified Michelle Scale for Level of Consciousness: Anixous, agitated or restless (Phone consent obtained from son MADHURI) [phone]) Anesthetic Plan: General Monitoring Plan: Standard Monitors Recovery Plan: PACU
[2016-11-09] MEDS ORDERED: Lidocaine -MPF 2% 2 ML VIAL ONE (14:13)
[2016-11-09] MEDS ORDERED: *HR* FentaNYL (PF) 100 MCG/2 ML VIAL ONE (14:13)
[2016-11-09] MEDS ORDERED: *HR* Rocuronium Bromide 50 MG/5 ML VIAL ONE (14:13)
[2016-11-09] MEDS ORDERED: *HR* Propofol 200 MG/20 ML VIAL IVP ONE (14:13)
[2016-11-09] MEDS ORDERED: Ondansetron 4 MG/2 ML VIAL ONE (14:13)
[2016-11-09] MEDS ORDERED: Albuterol 2.5 MG/3 ML NEBULIZER ONE (14:29)
--- NOTE | 2016-11-09 15:17 | Operative Note ---
Date of procedure: 11/09/16 Pre-op diagnosis: acute cholecystitis Post-op diagnosis: same Procedure: Laparoscopic cholecystectomy with cholangiogram Anesthesia: RAMÍREZ Surgeon: Laureano Ace Estimated blood loss (cc): 5 Specimen: GB Condition: stable Disposition: same day Procedure in Detail: After informed consent this patient was taken the operating room placed supine position. After adequate sedation anesthesia the abdomen was prepped and draped. A proper timeout was performed. Two towel clamps are placed at the umbilicus and a Veres needle was inserted into the abdomen. A 5 mm incision was made at the umbilicus. A 12 mm incision was made in the subxiphoid region. Two 5 mm incisions were made in the right upper quadrant that were 4 finger breadths and 6 finger breadths below the costal margin. The gallbladder was identified, retracted anteriorly and cephalad, and the infundibulum was skeletonized. The cystic duct was easily identified and was dissected free. A ductotomy was created in the cystic duct. A taut catheter was placed within the cystic duct and clipped. A cholangiogram was performed. Contrast filled the cystic duct, common hepatic duct, hepatic radicles, and the distal common bile duct. There was flow of contrast into the duodenum. Once this was confirmed the clippers removed, the taut catheter was removed as well, and the cystic duct was clipped distally. The cystic duct was then transected with scissors. The gallbladder was resected off the liver surface. There was excellent hemostasis. The gallbladder was then retrieved through the 12 mm cannula site. At this point the abdomen was suctioned dry and the pneumoperitoneum was then evacuated. All ports were removed. The 12 mm cannula site was closed with an 0 Vicryl suture in [id number] fashion. The skin was closed with 4-0 Vicryl suture. Dermabond was placed as well. All instrument counts and needle counts are correct in the operation. She tolerated the procedure well and was transferred to the PACU in stable condition.
[2016-11-09] MEDS ORDERED: Ipratropium/Albuterol Neb 3 ML ONE (15:32)
[2016-11-09] MEDS ORDERED: Albuterol 2.5 MG/3 ML NEBULIZER IH PRN (15:35)
[2016-11-09] MEDS ORDERED: Naloxone 0.4 MG/ML INJ IVP PRN ×2 (15:35→17:43)
[2016-11-09] MEDS ORDERED: Furosemide 20 MG/2 ML VIAL IVP ONE ×2 (15:37→15:40)
--- NOTE | 2016-11-09 17:14 | Anesthesia Evaluation Post Op ---
Date of Encounter: 11/09/16 Time of Encounter: 17:13 - Vital Signs Vital Signs: Vital Signs/O2 Sat, Most Current Temp Pulse Resp BP Pulse Ox 98.2 F 77 24 126/64 95 11/09/16 16:56 11/09/16 16:56 11/09/16 16:56 11/09/16 16:56 11/09/16 16:56 - Lungs Lungs: Clear Ascult./Percussion - Airway Airway: Non-obstructed - Cardiovascular Regular Rate - Mental Status Mental Status: Confused, Baseline Status - Pain Pain Scale: 0 Pain Scale used: Numeric (1 - 10) - Nausea Vomiting Nausea Vomiting: Present - Hydration Hydration: NPO, Martin catheter - Discharge PostOp Status: Transfer Patient to floor
[2016-11-09] MEDS ORDERED: Dextrose Gel 15 GM PO PRN ×2 (17:43)
[2016-11-09] MEDS ORDERED: *HR* Dextrose 50 % in Water (Syg) 50 ML SYRINGE IVP PRN (17:43)
[2016-11-09] MEDS ORDERED: Ondansetron 4 MG/2 ML VIAL IVP PRN (17:43)
[2016-11-09] MEDS ORDERED: D5% in Water 1,000 ML IVC PRN (17:43)
[2016-11-09 18:34] LABS: Basophils % 0.3 %; Eosinophils # 0.6 K/mcL (0.0-0.6); Eosinophils % 3.5 %; Hematocrit 34.7 % (37.5-50.1); Hemoglobin 10.6 g/dL (12.9-16.9); Immature Granulocytes % 1.1 % (0-4); Immature Platelets 5.1 % (1.1-6.1); Lymphocytes # 0.5 K/mcL (0.6-4.6); Lymphocytes % 3.3 %; Mean Corpuscular HGB Conc 30.5 g/dL (31.6-35.5); Mean Corpuscular Hemoglobin 32.2 pg (28.0-33.3); Mean Corpuscular Volume 105.5 fL (83.0-100.0); Mean Platelet Volume 10.6 fL (9.4-12.4); Monocytes # 1.8 K/mcL (0.0-1.3); Monocytes % 11.1 %; Neutrophils # 12.9 K/mcL (1.6-8.9); Platelet Count 225 K/mcL (140-400); Red Blood Count 3.29 M/mcL (4.19-5.50); Segmented Neutrophils % 80.7 %
[2016-11-10] MEDS: Insulin LISPRO 300 UNITS/3 ML VIAL SQ SCH ×4 (00:11→18:35)
[2016-11-10] MEDS: Piperacillin/Tazobactam 3.375 GM in D5% in Water (Mini-Bag+) 100 ML IVPB SCH ×3 (01:59→17:06)
[2016-11-10] MEDS: *HR* Morphine 2 MG/ML SYRINGE IVP PRN ×4 (02:55→21:02)
[2016-11-10] MEDS: D5% in Lactated Ringers 1,000 ML IVC SCH ×4 (05:06→23:33)
[2016-11-10] MEDS: Levothyroxine Sodium 100 MCG VIAL IVP SCH (05:31)
[2016-11-10 05:47] LABS: Basophils % 0.2 %; Eosinophils % 7.3 %; Hematocrit 33.6 % (37.5-50.1); Hemoglobin 10.2 g/dL (12.9-16.9); Lymphocytes # 0.9 K/mcL (0.6-4.6); Lymphocytes % 6.2 %; Mean Corpuscular HGB Conc 30.4 g/dL (31.6-35.5); Mean Corpuscular Volume 105.3 fL (83.0-100.0); Mean Platelet Volume 10.9 fL (9.4-12.4); Monocytes # 1.4 K/mcL (0.0-1.3); Monocytes % 9.9 %; Neutrophils # 10.5 K/mcL (1.6-8.9); Platelet Count 223 K/mcL (140-400); Red Blood Count 3.19 M/mcL (4.19-5.50); Red Cell Distribution Width 15.9 % (11.5-14.5); Segmented Neutrophils % 75.4 %
[2016-11-10 06:05] LABS: Alanine Aminotransferase 23 Units/L (0-55); Albumin 1.9 g/dL (3.5-5.0); Albumin/Globulin Ratio 0.5 (1.1-2.2); Alkaline Phosphatase 116 Units/L (38-126); Amylase 24 Units/L (25-125); Aspartate Amino Transferase 38 Units/L (5-34); BUN/Creatinine Ratio 11 (6-26); Bilirubin,Total 0.8 mg/dL (0.2-1.2); Blood Urea Nitrogen 10 mg/dL (8-26); Calcium 8.7 mg/dL (8.6-10.8); Carbon Dioxide 30 mEq/L (19-29); Chloride 108 mEq/L (98-109); Globulin 3.7 g/dL (2.4-3.5); Glucose 151 mg/dL (70-99); Lipase < 10 Units/L (8-78); Magnesium 1.8 mg/dL (1.6-2.6); Osmolality,Calculated 300 (280-300); Potassium 3.5 mEq/L (3.5-4.5); Sodium 144 mEq/L (136-145); Total Protein 5.6 g/dL (6.0-8.3); eGFR For African Americans > 60 (> 60); eGFR For Non-African Americans > 60 (> 60)
[2016-11-10] MEDS: Finasteride 5 MG TABLET PO SCH (08:36)
[2016-11-10] MEDS: Pantoprazole 40 MG VIAL IVP SCH (08:36)
[2016-11-10] MEDS: *HR* Amiodarone 200 MG TABLET PO SCH (08:36)
[2016-11-10] MEDS: Lisinopril 20 MG TABLET PO SCH (08:36)
[2016-11-10] MEDS ORDERED: *HR* Enoxaparin 40 MG/0.4 ML SYRINGE SQ SCH (09:15)
--- NOTE | 2016-11-10 09:28 | Internal Med Progress Note ---
Date of Encounter: 11/10/16 Time of Encounter: 09:26 - Assessment and plan (1) Acute encephalopathy Current Visit: Yes Status: Acute Assessment and plan: Likely metabolic/drug-induced due to use of IV narcotics and benzodiazepines and underlying acute pancreatitis. Patient is having a prolonged recovery. Continue to monitor closely and treat underlying condition. Continue soft wrist restraints for patient safety along with when necessary IV Ativan. Fall precautions. (2) Hypernatremia Current Visit: Yes Status: Resolved (3) Acute pancreatitis Current Visit: Yes Status: Acute Assessment and plan: Patient admitted with sudden onset of abdominal pain, nausea and vomiting, suggestive of gallstone pancreatitis. CT abdomen/pelvis shows acute pancreatitis. Right upper quadrant ultrasound confirms the same, no clear evidence of acute cholecystitis, shows gallstones and mildly dilated CBD at 8 mm. MRCP shows no evidence of biliary obstruction. Continue supportive care with aggressive IV hydration, pain control with when necessary IV morphine and when necessary antiemetics. We will start scheduled IV Tylenol. Continue IV Zosyn. Patient is unable to tolerate any oral medications at this time. Surgery consulted . Underwent Laparoscopic cholecystectomy, postoperative day 1. Patient is cleared to have clear liquid diet, however does not have any oral intake due to underlying mental status. Patient is also noted to have pulled out his Martin catheter early this morning and is noted to have some gross hematuria at this time. Plan to replace and flush Martin, continue to monitor urine output closely. High risk for complications. Difficult to assess patient's mental status given his somnolence and disorientation, also difficult to assess the effect of medications as he moans and reports that he is in pain and continues to get narcotic analgesics and benzodiazepines for agitation. Qualifiers: Pancreatitis type: unspecified pancreatitis type Acute pancreatitis complication: unspecified Qualified Code(s): K85.90 - Acute pancreatitis without necrosis or infection, unspecified (4) CHF (congestive heart failure) Current Visit: Yes Status: Chronic Assessment and plan: Hold diuretics and continue IV hydration for now. Monitor volume status closely. Telemetry monitoring. Qualifiers: Congestive heart failure type: diastolic Congestive heart failure chronicity: chronic Qualified Code(s): I50.32 - Chronic diastolic (congestive ) heart failure (5) Hypothyroid Current Visit: Yes Status: Chronic Assessment and plan: Continue IV levothyroxine,; Qualifiers: Hypothyroidism type: unspecified Qualified Code(s): E03.9 - Hypothyroidism , unspecified (6) Hypertension Current Visit: Yes Status: Chronic Assessment and plan: Continue when necessary IV hydralazine and hold oral antihypertensives due to nothing by mouth status. Blood Pressure noted to be well controlled. Qualifiers: Hypertension type: essential hypertension Qualified Code(s): I10 - Essential (primary) hypertension (7) Hyperlipidemia Current Visit: Yes Status: Chronic Qualifiers: Hyperlipidemia type: unspecified Qualified Code(s): E78.5 - Hyperlipidemia , unspecified (8) CAD (coronary artery disease) Current Visit: Yes Status: Chronic Qualifiers: Coronary Disease-Associated Artery/Lesion type: bypass graft [place] vs. transplanted heart: [place] heart Associated angina: without angina Qualified Code(s): I25.810 - Atherosclerosis of coronary artery bypass graft(s) without angina pectoris (9) Bladder outlet obstruction Current Visit: Yes Status: Chronic (10) CKD (chronic kidney disease) stage 3, GFR 30-59 ml/min Current Visit: Yes Status: Chronic (11) Pulmonary embolism Current Visit: Yes Status: Chronic Assessment and plan: Noted to have been on Eliquis as outpatient, which was changed to subcutaneous Lovenox due to NPO status, continue the same. Continue supplemental O2. Qualifiers: Pulmonary embolism type: other Chronicity: acute Acute cor pulmonale presence: without acute cor pulmonale Qualified Code(s): I26.99 - Other pulmonary embolism without acute cor pulmonale (12) DVT (deep venous thrombosis) Current Visit: Yes Status: Acute Qualifiers: DVT location: lower extremity Affected thrombotic vein of extremity: tibial Chronicity: acute Laterality: left Qualified Code(s): I82.442 - Acute embolism and thrombosis of left tibial vein - Subjective Interval history: Remains on BiPAP support since surgery last evening; does not respond to speech or touch; somnolent and drowsy; cannot provide history; - Constitutional Vitals: Temp Pulse Resp BP Pulse Ox 98.0 F 81 22 150/67 94 11/10/16 08:52 11/10/16 08:52 11/10/16 08:52 11/10/16 08:52 11/10/16 08:52 General appearance: Present: A&O X 0 (somnolent). Absent: answers questions appropriately - Respiratory Respiratory exam: Present: CTAB (coarse breath sounds B/L), rhonchi (scattered, at right base). Absent: accessory muscle use, rales, wheezes - Cardiovascular Cardiovascular exam: Present: RRR, +S1, +S2. Absent: diastolic murmur, gallop, rubs, systolic murmur - GI/Abdominal GI/Abdominal exam: Present: normal bowel sounds, soft, no peritoneal signs. Absent: distended, tenderness - Extremities Exam Extremities exam: Present: pedal edema, warm, radial pulses palpable and symetrical. Absent: calf tenderness, cyanotic - Neurological Exam Neurological exam: Present: altered, no focal deficits (cannot complete assessment due to mental status; moves all extremities spontaneously when agitated). Absent: pronater drift, facial droop, speech deficit Internal Medicine: Result - Labs CBC & Chem 7: 11/10/16 05:12 11/10/16 05:12 Labs: Short CBC 11/09/16 11/10/16 Range/Units 18:17 05:12 WBC 16.0 H 13.9 H (4.3-11.1) K/mcL Hgb 10.6 L 10.2 L (12.9-16.9) g/dL Hct 34.7 L 33.6 L (37.5-50.1) % Plt Count 225 223 (140-400) K/mcL Neutrophils # 12.9 H 10.5 H (1.6-8.9) K/mcL BMP 11/10/16 05:12 Sodium 144 Potassium 3.5 Chloride 108 Carbon Dioxide 30 H BUN 10 Creatinine 0.88 Glucose 151 H Calcium 8.7 Liver Function 11/10/16 Range/Units 05:12 Total Bilirubin 0.8 (0.2-1.2) mg/dL AST 38 H (5-34) Units/L ALT 23 (0-55) Units/L Alkaline Phosphatase 116 (38-126) Units/L Albumin 1.9 L (3.5-5.0) g/dL - ABG Interpretation ABG results: PT/INR, D-dimer PT 16.4 Seconds (9.4-12.1) H 11/05/16 00:32 - Impressions Impressions Cholangiogram,Operative 11/09/16 13:50 IMPRESSION: Intraprocedural fluoroscopic spot images as above. See separate procedure report for more information. D/ / Yossi Hernandez MD / Yossi Hernandez MD Interpreting Provider: Yossi Hernandez MD - VTE Documentation of Mechanical Device: Intermittent pneumatic compression device Consult Discharge Plan - Plan Referrals: Haroon Liriano MD [Primary Care Provider] - (Office request that patient calls to make the appt. after discharge. Thank you)
[2016-11-10] MEDS: *HR* Enoxaparin 100 MG/ML SYRINGE SQ SCH ×2 (10:26→21:07)
[2016-11-10 10:39] LABS: ABG Base Excess 5.4 mEq/L (-2.0 to 3.0); ABG HCO3 32.4 mEQ/L (21-27); ABG Oxygen Saturation 89 % (95-98); ABG PCO2 60 mmHg (35-45); ABG PH 7.34 pH Units (7.32-7.45); ABG PO2 61 mmHg (85-104); ABG TCO2 34.2 mEq/L (20-26)
[2016-11-10 10:40] LABS: Blood Gas FiO2 35 %
[2016-11-10] MEDS ORDERED: *HR* Acetaminophen w/Cod 300-30 mg 1 TAB TABLET PO PRN (11:53)
[2016-11-10] MEDS ORDERED: traMADol 50 MG TABLET PO PRN (11:59)
[2016-11-10] MEDS ORDERED: Acetaminophen 325 MG TABLET PO PRN (11:59)
[2016-11-10] MEDS ORDERED: Ketorolac 15 MG/ML VIAL IVP ONE (12:04)
[2016-11-10] MEDS: *HR* LORazepam 2 MG/ML VIAL IVP PRN (15:13)
[2016-11-10] MEDS ORDERED: Acetaminophen IV 1,000 MG/100 ML INFUS..BTL IVPB SCH (18:00)
--- NOTE | 2016-11-10 18:21 | General Surgery Progress Note ---
Date of Encounter: 11/10/16 Time of Encounter: 13:40 - Assessment and Plan (1) S/P laparoscopic cholecystectomy Current Visit: Yes Status: Acute start clears once patient wakes toradol x 1 for pain per hospitalist ok iv ofirmev for pain ok restart lovenox (2) DVT prophylaxis Current Visit: No Status: Acute (3) Leukocytosis Current Visit: No Status: Resolved on zosyn, continue trend Hb, is decreasing Qualifiers: Leukocytosis type: unspecified Qualified Code(s): D72.829 - Elevated white blood cell count, unspecified (4) Hematuria Current Visit: Yes Status: Acute per family patient is restrained currently because in his confusion he pulled on his guzman catheter and now has gross hematuria will monitor Hb/hematuria as in on lovenox now for recent PE ok flush guzman Qualifiers: Hematuria type: gross Qualified Code(s): R31.0 - Gross hematuria Subjective Patient reports: no new complaints, feels better, still having pain, pain is less, no flatus, no bowel movement Objective Vital Signs - Last 8 Hours Temp Pulse Resp BP Pulse Ox 11/10/16 14:54 97.9 F 72 22 106/82 92 11/10/16 14:43 97 11/10/16 14:00 97.9 F 72 22 106/82 92 Intake and Output 11/10/16 11/10/16 11/10/16 07:59 15:59 23:59 Intake Total 1200 / 1200 1000 / 1000 0 / 0 Output Total 300 / 300 300 / 300 Balance 900 / 900 700 / 700 0 / 0 Intake: IV Fluids 1200 / 1200 1000 / 1000 D5% & Lact. Ringers 1000 1100 / 1100 900 / 900 Ml Bag 1,000 ML @ 100 mls /hr IVC .Q10H [facility] Rx#: [id number] Zosyn 3.375 GM In 100 / 100 100 / 100 Dextrose 5% (Minibag+) 100 ML 100 ML @ 25 mls/hr IVPB Q8H [facility] Rx#: [id number] Oral 0 / 0 0 / 0 0 / 0 Output: Urine 300 / 300 Catheter 300 / 300 0 / 0 Other: Meal Clear Clear Percent of Meal Consumed 0% 0% # Bowel Movements 0 0 Weight 86.6 kg Blood Glucose* 151 147 147 Patient Weight 11/10/16 23:59 Weight 86.6 kg - General physical appearance well developed, well nourished, no distress - ENT dry mucosa, atraumatic - Neck Neck exam: trachea midline - Respiratory normal expansion, clear to auscultation - Abdomen Abdomen: Present: soft, non tender. Absent: distended - Incision Incision: Present: clean and dry, intact - Integumentary no rash, no growths - Psychiatric other (sleeping) - Labs 11/10/16 05:12 11/10/16 05:12 Diabetes panel 11/10/16 Range/Units 05:12 Sodium 144 (136-145) mEq/L Potassium 3.5 (3.5-4.5) mEq/L Chloride 108 (98-109) mEq/L Carbon Dioxide 30 H (19-29) mEq/L BUN 10 (8-26) mg/dL Creatinine 0.88 (0.72-1.25) mg/dL Glucose 151 H (70-99) mg/dL Calcium 8.7 (8.6-10.8) mg/dL AST 38 H (5-34) Units/L ALT 23 (0-55) Units/L Alkaline Phosphatase 116 (38-126) Units/L Albumin 1.9 L (3.5-5.0) g/dL Calcium panel 11/10/16 Range/Units 05:12 Calcium 8.7 (8.6-10.8) mg/dL Albumin 1.9 L (3.5-5.0) g/dL Pituitary panel 11/10/16 Range/Units 05:12 Sodium 144 (136-145) mEq/L Potassium 3.5 (3.5-4.5) mEq/L Chloride 108 (98-109) mEq/L Carbon Dioxide 30 H (19-29) mEq/L BUN 10 (8-26) mg/dL Creatinine 0.88 (0.72-1.25) mg/dL Glucose 151 H (70-99) mg/dL Calcium 8.7 (8.6-10.8) mg/dL Adrenal panel 11/10/16 Range/Units 05:12 Sodium 144 (136-145) mEq/L Potassium 3.5 (3.5-4.5) mEq/L Chloride 108 (98-109) mEq/L Carbon Dioxide 30 H (19-29) mEq/L BUN 10 (8-26) mg/dL Creatinine 0.88 (0.72-1.25) mg/dL Glucose 151 H (70-99) mg/dL Calcium 8.7 (8.6-10.8) mg/dL Total Bilirubin 0.8 (0.2-1.2) mg/dL AST 38 H (5-34) Units/L ALT 23 (0-55) Units/L Alkaline Phosphatase 116 (38-126) Units/L Albumin 1.9 L (3.5-5.0) g/dL - VTE Documentation of Mechanical Device: Intermittent pneumatic compression device Consult Discharge Plan - Plan Referrals: Haroon Liriano MD [Primary Care Provider] - (Office request that patient calls to make the appt. after discharge. Thank you)
[2016-11-11] MEDS: Insulin LISPRO 300 UNITS/3 ML VIAL SQ SCH ×4 (00:08→18:26)
[2016-11-11] MEDS: Acetaminophen IV 1,000 MG/100 ML INFUS..BTL IVPB SCH ×4 (00:11→17:50)
[2016-11-11] MEDS: *HR* Morphine 2 MG/ML SYRINGE IVP PRN ×4 (02:32→19:48)
[2016-11-11] MEDS: Piperacillin/Tazobactam 3.375 GM in D5% in Water (Mini-Bag+) 100 ML IVPB SCH ×3 (02:33→18:27)
[2016-11-11] MEDS: *HR* LORazepam 2 MG/ML VIAL IVP PRN ×2 (03:04→08:35)
[2016-11-11 03:37] LABS: Basophils % 0.3 %; Eosinophils # 1.3 K/mcL (0.0-0.6); Eosinophils % 11.5 %; Hematocrit 31.4 % (37.5-50.1); Hemoglobin 9.6 g/dL (12.9-16.9); Immature Granulocytes % 0.8 % (0-4); Lymphocytes # 0.9 K/mcL (0.6-4.6); Lymphocytes % 7.9 %; Mean Corpuscular HGB Conc 30.6 g/dL (31.6-35.5); Mean Corpuscular Hemoglobin 32.4 pg (28.0-33.3); Mean Corpuscular Volume 106.1 fL (83.0-100.0); Mean Platelet Volume 10.6 fL (9.4-12.4); Monocytes # 1.3 K/mcL (0.0-1.3); Monocytes % 11.1 %; Neutrophils # 7.8 K/mcL (1.6-8.9); Platelet Count 202 K/mcL (140-400); Red Blood Count 2.96 M/mcL (4.19-5.50); Red Cell Distribution Width 15.9 % (11.5-14.5); Segmented Neutrophils % 68.4 %
[2016-11-11 03:50] LABS: Alanine Aminotransferase 24 Units/L (0-55); Albumin/Globulin Ratio 0.5 (1.1-2.2); Alkaline Phosphatase 98 Units/L (38-126); Aspartate Amino Transferase 37 Units/L (5-34); BUN/Creatinine Ratio 11 (6-26); Bilirubin,Total 0.7 mg/dL (0.2-1.2); Blood Urea Nitrogen 11 mg/dL (8-26); Calcium 8.7 mg/dL (8.6-10.8); Carbon Dioxide 30 mEq/L (19-29); Chloride 108 mEq/L (98-109); Globulin 3.7 g/dL (2.4-3.5); Glucose 138 mg/dL (70-99); Magnesium 1.9 mg/dL (1.6-2.6); Osmolality,Calculated 300 (280-300); Potassium 3.9 mEq/L (3.5-4.5); Sodium 144 mEq/L (136-145); Total Protein 5.5 g/dL (6.0-8.3); eGFR For African Americans > 60 (> 60); eGFR For Non-African Americans > 60 (> 60)
[2016-11-11 03:54] LABS: Albumin 1.8 g/dL (3.5-5.0)
[2016-11-11] MEDS: Ipratropium/Albuterol Neb 3 ML IH SCH ×5 (04:04→20:11)
[2016-11-11] MEDS: Levothyroxine Sodium 100 MCG VIAL IVP SCH (05:14)
[2016-11-11] MEDS: Pantoprazole 40 MG VIAL IVP SCH (08:35)
[2016-11-11] MEDS: *HR* Enoxaparin 100 MG/ML SYRINGE SQ SCH (08:42)
[2016-11-11] MEDS: Finasteride 5 MG TABLET PO SCH (08:45)
[2016-11-11] MEDS: Lisinopril 20 MG TABLET PO SCH (08:45)
[2016-11-11] MEDS: D5% in Lactated Ringers 1,000 ML IVC SCH (08:47)
[2016-11-11] MEDS ORDERED: Haloperidol Lactate 5 MG/ML VIAL IVP PRN (11:14)
--- NOTE | 2016-11-11 11:18 | General Surgery Progress Note ---
Date of Encounter: 11/11/16 Time of Encounter: 11:16 - Assessment and Plan (1) S/P laparoscopic cholecystectomy Current Visit: Yes Status: Acute start clears once patient wakes iv ofirmev for pain only dc'd morphine (2) Leukocytosis Current Visit: No Status: Resolved on zosyn, continue trend wbc, is decreasing Qualifiers: Leukocytosis type: unspecified Qualified Code(s): D72.829 - Elevated white blood cell count, unspecified (3) Hematuria Current Visit: Yes Status: Acute will monitor Hb/hematuria as in on lovenox now for recent PE ok flush guzman Qualifiers: Hematuria type: gross Qualified Code(s): R31.0 - Gross hematuria (4) Obtunded Current Visit: Yes Status: Acute check stat abg dc ativan and morphine ofirmev for pain and haldol for agitation may need bipap if CO2 elevated Subjective Narrative: granddaughter present in room and states patient is delerious, he will wake up, screams in pain and gets ativan for agitation and then falls back asleep and they are not able to easily arouse him Objective Vital Signs - Last 8 Hours Temp Pulse Resp BP Pulse Ox 11/11/16 07:13 100 11/11/16 07:00 97.5 F L 65 21 106/63 100 11/11/16 04:04 17 87 11/11/16 03:33 98.2 F 70 22 135/66 94 Intake and Output 11/10/16 11/11/16 11/11/16 23:59 07:59 15:59 Intake Total 1500 / 1500 300 / 300 1000 / 1000 Output Total 125 / 125 100 / 100 Balance 1375 / 1375 200 / 200 1000 / 1000 Intake: IV Fluids 1500 / 1500 300 / 300 1000 / 1000 D5% & Lact. Ringers 1000 1000 / 1000 1000 / 1000 Ml Bag 1,000 ML @ 100 mls /hr IVC .Q10H [facility] Rx#: [id number] Ofirmev 1,000 mg/100 ml 1 400 / 400 200 / 200 ,000 mg In 100 ml @ 400 mls/hr IVPB Q6H [facility] Rx#: [id number] Zosyn 3.375 GM In 100 / 100 100 / 100 Dextrose 5% (Minibag+) 100 ML 100 ML @ 25 mls/hr IVPB Q8H [facility] Rx#: [id number] Oral 0 / 0 0 / 0 Output: Catheter 125 / 125 100 / 100 Other: Meal Clear Percent of Meal Consumed 0% Weight 88.2 kg Blood Glucose* 151 146 Patient Weight 11/11/16 23:59 Weight 88.2 kg - General physical appearance well developed, well nourished, no distress - ENT dry mucosa, atraumatic - Neck Neck exam: trachea midline - Respiratory normal expansion, clear to auscultation - Cardiovascular Cardiovascular exam: Present: RRR - Abdomen Abdomen: Present: soft, tender (winces with palpation of abdomen but doesnt wake ) - Incision Incision: Present: clean and dry, intact - Integumentary no growths - Psychiatric other (sedate) - Labs 11/11/16 03:25 11/11/16 03:25 Short CBC 11/11/16 Range/Units 03:25 WBC 11.4 H (4.3-11.1) K/mcL Hgb 9.6 L (12.9-16.9) g/dL Hct 31.4 L (37.5-50.1) % Plt Count 202 (140-400) K/mcL Neutrophils # 7.8 (1.6-8.9) K/mcL BMP 11/11/16 Range/Units 03:25 Sodium 144 (136-145) mEq/L Potassium 3.9 (3.5-4.5) mEq/L Chloride 108 (98-109) mEq/L Carbon Dioxide 30 H (19-29) mEq/L BUN 11 (8-26) mg/dL Creatinine 0.97 (0.72-1.25) mg/dL Glucose 138 H (70-99) mg/dL Calcium 8.7 (8.6-10.8) mg/dL Liver Function 11/11/16 Range/Units 03:25 Total Bilirubin 0.7 (0.2-1.2) mg/dL AST 37 H (5-34) Units/L ALT 24 (0-55) Units/L Alkaline Phosphatase 98 (38-126) Units/L Albumin 1.8 L (3.5-5.0) g/dL Vital Signs Temp Pulse Resp BP Pulse Ox 11/11/16 07:37 20 100 11/11/16 07:13 100 11/11/16 07:00 97.5 F L 65 21 106/63 100 11/11/16 04:04 17 87 11/11/16 03:33 98.2 F 70 22 135/66 94 11/10/16 23:46 97.9 F 88 22 162/72 92 11/10/16 19:31 97.7 F 94 20 154/73 97 11/10/16 14:54 97.9 F 72 22 106/82 92 11/10/16 14:43 97 11/10/16 14:00 97.9 F 72 22 106/82 92 Intake and Output 11/10/16 11/11/16 11/11/16 23:59 07:59 15:59 Intake Total 1500 / 1500 300 / 300 1000 / 1000 Output Total 125 / 125 100 / 100 Balance 1375 / 1375 200 / 200 1000 / 1000 Intake: IV Fluids 1500 / 1500 300 / 300 1000 / 1000 D5% & Lact. Ringers 1000 1000 / 1000 1000 / 1000 Ml Bag 1,000 ML @ 100 mls /hr IVC .Q10H [facility] Rx#: [id number] Ofirmev 1,000 mg/100 ml 1 400 / 400 200 / 200 ,000 mg In 100 ml @ 400 mls/hr IVPB Q6H [facility] Rx#: [id number] Zosyn 3.375 GM In 100 / 100 100 / 100 Dextrose 5% (Minibag+) 100 ML 100 ML @ 25 mls/hr IVPB Q8H [facility] Rx#: [id number] Oral 0 / 0 0 / 0 Output: Catheter 125 / 125 100 / 100 Other: Meal Clear Percent of Meal Consumed 0% Weight 88.2 kg Blood Glucose* 151 146 Patient Weight 11/11/16 23:59 Weight 88.2 kg - VTE Documentation of Mechanical Device: Intermittent pneumatic compression device Consult Discharge Plan - Plan Referrals: Haroon Liriano MD [Primary Care Provider] - (Office request that patient calls to make the appt. after discharge. Thank you)
[2016-11-11 11:36] LABS: ABG HCO3 32.4 mEQ/L (21-27); ABG Oxygen Saturation 93 % (95-98); ABG PCO2 56 mmHg (35-45); ABG PH 7.37 pH Units (7.32-7.45); ABG PO2 69 mmHg (85-104); ABG TCO2 34.1 mEq/L (20-26)
[2016-11-11 11:39] LABS: Blood Gas Liter Flow 5 L/MIN
[2016-11-11] MEDS: *HR* Amiodarone 200 MG TABLET PO SCH (12:03)
--- NOTE | 2016-11-11 12:09 | Internal Med Progress Note ---
Date of Encounter: 11/11/16 Time of Encounter: 12:04 - Assessment and plan (1) Acute encephalopathy Current Visit: Yes Status: Acute Assessment and plan: Likely metabolic/drug-induced due to use of IV narcotics and benzodiazepines and underlying acute pancreatitis. Patient continues to have altered mental status, making it difficult to assess his overall clinical condition. He is noted to be obtunded with even small doses of IV benzodiazepine/narcotics and is noted to be extremely uncomfortable and crying if he is even slightly alert. Case discussed with surgery, we will change when necessary IV Ativan to Haldol and try to discontinue narcotic pain medications. Continue to monitor closely and treat underlying condition. Continue soft wrist restraints for patient safety. (2) Hypernatremia Current Visit: Yes Status: Resolved (3) Acute pancreatitis Current Visit: Yes Status: Acute Assessment and plan: Patient admitted with sudden onset of abdominal pain, nausea and vomiting, noted to have gallstone pancreatitis. Surgery consulted . Underwent Laparoscopic cholecystectomy, postoperative day 2. Medically and surgically cleared to be started on enteral nutrition, however does not have any oral intake due to underlying encephalopathy. Continue scheduled IV Tylenol for pain control. He has been on low doses of when necessary IV morphine, which may have to be held in light of his encephalopathy. Continue IV Zosyn. Patient is unable to tolerate any oral medications at this time. On repeat assessment when patient is slightly more alert, patient is noted to be extremely tender in left upper quadrant and trunk, to rule out internal hematoma, as the patient is noted to be on full dose anticoagulation for recent PE. Will get stat CT abdomen/pelvis along with CT head to assess for encephalopathy. Plan of care discussed with patient's granddaughter and daughter at bedside. Guarded prognosis. Palliative care consulted, to discuss goals of care with patient's family. Tentative family meeting tomorrow, depending on imaging results and patient's clinical course. Qualifiers: Pancreatitis type: unspecified pancreatitis type Acute pancreatitis complication: unspecified Qualified Code(s): K85.90 - Acute pancreatitis without necrosis or infection, unspecified (4) CHF (congestive heart failure) Current Visit: Yes Status: Chronic Assessment and plan: Hold diuretics and continue IV hydration for now. Monitor volume status closely. Noted to have some peripheral edema. Telemetry monitoring. Qualifiers: Congestive heart failure type: diastolic Congestive heart failure chronicity: chronic Qualified Code(s): I50.32 - Chronic diastolic (congestive ) heart failure (5) Hypothyroid Current Visit: Yes Status: Chronic Assessment and plan: Continue IV levothyroxine. Qualifiers: Hypothyroidism type: unspecified Qualified Code(s): E03.9 - Hypothyroidism , unspecified (6) Hypertension Current Visit: Yes Status: Chronic Assessment and plan: Continue when necessary IV hydralazine and hold oral antihypertensives due to nothing by mouth status. Blood Pressure noted to be well controlled. Qualifiers: Hypertension type: essential hypertension Qualified Code(s): I10 - Essential (primary) hypertension (7) Hyperlipidemia Current Visit: Yes Status: Chronic Qualifiers: Hyperlipidemia type: unspecified Qualified Code(s): E78.5 - Hyperlipidemia , unspecified (8) CAD (coronary artery disease) Current Visit: Yes Status: Chronic Qualifiers: Coronary Disease-Associated Artery/Lesion type: bypass graft [place] vs. transplanted heart: [place] heart Associated angina: without angina Qualified Code(s): I25.810 - Atherosclerosis of coronary artery bypass graft(s) without angina pectoris (9) Bladder outlet obstruction Current Visit: Yes Status: Chronic (10) CKD (chronic kidney disease) stage 3, GFR 30-59 ml/min Current Visit: Yes Status: Suspected Assessment and plan: Serum creatinine currently noted to be normal. Less likely patient has CKD. Continue to monitor closely due to use of IV contrast today; (11) Pulmonary embolism Current Visit: Yes Status: Chronic Assessment and plan: Noted to have been on Eliquis as outpatient, which was changed to subcutaneous Lovenox due to NPO status, continue the same, pending CT results. Anticoagulation may have to stopped if he is noted to have bleeding. Continue supplemental O2. ABG shows some CO2 retention but pH is compensated, may not benefit from BiPAP at this time; Qualifiers: Pulmonary embolism type: other Chronicity: acute Acute cor pulmonale presence: without acute cor pulmonale Qualified Code(s): I26.99 - Other pulmonary embolism without acute cor pulmonale (12) DVT (deep venous thrombosis) Current Visit: Yes Status: Acute Qualifiers: DVT location: lower extremity Affected thrombotic vein of extremity: tibial Chronicity: acute Laterality: left Qualified Code(s): I82.442 - Acute embolism and thrombosis of left tibial vein - Subjective Interval history: Continues to be obtunded due to IV meds. On repeat assessment when patient was slightly awake, he screams in pain on touching his abdomen; no vomiting, fever/ chills. - Constitutional Vitals: Temp Pulse Resp BP Pulse Ox 97.5 F L 65 18 106/63 91 11/11/16 07:00 11/11/16 07:00 11/11/16 11:04 11/11/16 07:00 11/11/16 11:04 General appearance: Present: A&O X 0 (somnolent). Absent: answers questions appropriately - Respiratory Respiratory exam: Present: CTAB. Absent: accessory muscle use, rales, rhonchi, wheezes - Cardiovascular Cardiovascular exam: Present: RRR, +S1, +S2. Absent: diastolic murmur, gallop, rubs, systolic murmur - GI/Abdominal GI/Abdominal exam: Present: normal bowel sounds, soft (severe tenderness to light palpation in LUQ and central abdomen. ?distension), no peritoneal signs. Absent: distended, tenderness - Extremities Exam Extremities exam: Present: pedal edema, warm, radial pulses palpable and symetrical. Absent: calf tenderness, cyanotic Internal Medicine: Result - Labs CBC & Chem 7: 11/11/16 03:25 11/11/16 03:25 Labs: Short CBC 11/11/16 Range/Units 03:25 WBC 11.4 H (4.3-11.1) K/mcL Hgb 9.6 L (12.9-16.9) g/dL Hct 31.4 L (37.5-50.1) % Plt Count 202 (140-400) K/mcL Neutrophils # 7.8 (1.6-8.9) K/mcL BMP 11/11/16 03:25 Sodium 144 Potassium 3.9 Chloride 108 Carbon Dioxide 30 H BUN 11 Creatinine 0.97 Glucose 138 H Calcium 8.7 Liver Function 11/11/16 Range/Units 03:25 Total Bilirubin 0.7 (0.2-1.2) mg/dL AST 37 H (5-34) Units/L ALT 24 (0-55) Units/L Alkaline Phosphatase 98 (38-126) Units/L Albumin 1.8 L (3.5-5.0) g/dL - ABG Interpretation ABG results: ABG ABG pH 7.37 pH Units (7.32-7.45) 11/11/16 11:29 ABG pCO2 56 mmHg (35-45) H 11/11/16 11:29 ABG pO2 69 mmHg (85-104) L 11/11/16 11:29 ABG O2 Saturation 93 % (95-98) L 11/11/16 11:29 PT/INR, D-dimer PT 16.4 Seconds (9.4-12.1) H 11/05/16 00:32 - VTE Documentation of Mechanical Device: Intermittent pneumatic compression device Consult Discharge Plan - Plan Referrals: Heri,Haroon Silva MD [Primary Care Provider] - (Office request that patient calls to make the appt. after discharge. Thank you)
--- NOTE | 2016-11-11 13:11 | Palliative - Consult Note ---
Date of Encounter: 11/11/16 Time of Encounter: 12:00 - Assessment and Plan (1) Goals of care, counseling/discussion Current Visit: Yes Status: Acute Assessment and plan: Patient's granddaughter Leila at bedside. She reports that her father is POA but is awaiting other siblings to arrive from out of state. Patient is moaning non-stop, confused and in bilateral wrist restraints. Discussed post-op course and continued disorientation. Patient has received morphine and ativan and is agitated and yelling and moaning. Unable to clearly assess d/t moaning and screaming. Carries states his baseline is fully functional and ambulating prior to admission. Abdomen assessed and found be extremely tender to the left side with marked screaming and moaning with palpation. I had Dr. Carmona attend meeting and plan is to order CT head and CT abdomen and pelvis. Leila states that additional family will arrive sometime tomorrow and I will await the results of diagnostics and meet with family tomorrow. Patient is DNRCC- A, DNI. (2) Agitation Current Visit: Yes Status: Acute Assessment and plan: Patient restless and moaning and attempting to pull at IV lines and guzman catheter. Recommended to DC Ativan and Morphine and add Haldol. Case discussed with Dr. Carmona and Dr. [facility] rounding. Explained change to Leila the granddaughter and she approves. Will continue to follow. (3) Abdominal pain Current Visit: Yes Status: Acute Assessment and plan: Patient Post-op Day #2 of lap jamila. Moaning and screaming to abdominal palpation. CT abd/pelvis pending as well as CT head. Tylenol IV. Qualifiers: Abdominal location: upper abdomen, unspecified Qualified Code(s): R10.10 - Upper abdominal pain, unspecified (4) Pancreatitis Current Visit: No Status: Acute Qualifiers: Chronicity: acute Pancreatitis type: unspecified pancreatitis type Acute pancreatitis complication: unspecified Qualified Code(s): K85.90 - Acute pancreatitis without necrosis or infection, unspecified Palliative-CN HPI - Data of Consult Patient: new to practice Consult date: 11/11/16 Requesting Physician: Ngoc Carmona MD Primary Care Provider: Haroon Liriano MD - Consult Narrative Palliative Care/Comfort Measures: Palliative care Reason for consult: Goals of Care History of present illness: Mr. Ralph is a 86 year old male admitted with sudden onset of abdominal pain, nausea, and vomiting, suggestive of gallstone pancreatitis. CT abdomen/pelvis showed acute pancreatitis. Patient is post-op day #2 Laparoscopic cholecystectomy. Case discussed with Dr. Carmona. The patient has been confused and requiring wrist restraints as well as ativan and morphine for pain and delirium. The patient has had no po intake post-op due to his confusion, disorientation and somnolence at times. This consult is for goals of care discussion. Upon this consult the granddaughter Leila is at bedside. CC: Ngoc Carmona MD Past Med Surg Social Fam HX - Past Medical History Source: old records reviewed, obtained from family Medical history: atrial fibrillation, CHF, coronary artery disease, DVT, hyperlipidemia, hypertension, renal disease, thyroid disease, TIA, other ( Recently diagnosed pulmonary embolism) Psychiatric history: no psych history - Past Surgical History Surgical History: coronary bypass (CABG) - Social History Smoking Status: Never smoker Smokeless Tobacco Status: No Alcohol use: none Drug use: none Current living situation: Home Activity Level: Independent ambulation Recent Out of Country Travel Within the Last 8 Weeks: No Exposure or Possible Exposure to Illness During Travel: No - Family History Mother Hx Family Cardiac Disorders: No Hx Family Respiratory Disorders: No Hx Family Cancer: No Hx Family GI Disorders: Yes (stomach acid) Hx Family Endocrine Disorder: No Hx Family Neuromuscular Disorders: No Hx Family Neurologic Disorders: No Hx Family HEENT Disorders: No Hx Family Autoimmune Disorders: No Father Hx Family Cardiac Disorders: Yes ([place]) Hx Family Respiratory Disorders: No Hx Family Cancer: No Hx Family GI Disorders: No Hx Family Endocrine Disorder: No Hx Family Neuromuscular Disorders: No Hx Family Neurologic Disorders: No Hx Family HEENT Disorders: No Hx Family Autoimmune Disorders: No Medications and Allergies Amiodarone HCl [Pacerone] 200 mg PO DAILY 02/18/16 [History] Atorvastatin Calcium [Lipitor] 80 mg PO HS 02/18/16 [History] Finasteride [Proscar] 5 mg PO DAILY 02/18/16 [History] Furosemide [Lasix] 40 mg PO DAILY 02/18/16 [History] Levothyroxine Sodium [Levoxyl] 50 mcg PO QAM 02/18/16 [History] Oxybutynin Chloride [Ditropan Xl] 10 mg PO HS 02/18/16 [History] Potassium Chloride [Klor-Con Sprinkle] 20 meq PO BID 02/18/16 [History] Galantamine HBr [Razadyne ER] 24 mg PO DAILY 09/01/16 [History] Loratadine [Allergy Relief] 10 mg PO DAILY PRN 09/01/16 [History] Apixaban [Eliquis] 2.5 mg PO BID 11/05/16 [History] Cholecalciferol (D-3) [Vitamin D] 2,000 unit PO DAILY 11/05/16 [History] Cyanocobalamin (Vitamin B-12) [Vitamin B-12] 1,000 mcg SL DAILY 11/05/16 [ History] Lisinopril [Zestril] 20 mg PO DAILY 11/05/16 [History] guaiFENesin [Guaifenesin] 800 mg PO TID 11/05/16 [History] Allergies acetaminophen [From Percocet] Adverse Reaction (Verified 11/05/16 08:16) Hallucinating Oxycodone [From Percocet] Adverse Reaction (Verified 11/05/16 08:16) Hallucinating ROS unobtainable: due to mental status (patient with confusion and moaning non- stop) - Constitutional Constitutional ROS PAL: decreased appetite, fatigue - EENT Eyes: requires corrective lenses - Respiratory Respiratory: dyspnea - Gastrointestinal Gastrointestinal: abdominal pain - Genitourinary Genitourinary ROS male: hematuria - Musculoskeletal Musculoskeletal ROS IM: muscle weakness - Neurological Neurological ROS: weakness Palliative Care-Exam - Constitutional Vitals: Temp Pulse Resp BP Pulse Ox 97.5 F L 76 18 130/55 91 11/11/16 11:00 11/11/16 11:00 11/11/16 11:04 11/11/16 11:00 11/11/16 11:04 General appearance: Present: mild distress Exam: moaning and attempting to grab abdomen - Head Head Exam: Present: atraumatic, normal inspection, normocephalic - Eye Eye exam: Present: PERRL - ENT ENT exam: Present: mucous membranes dry - Expanded ENT Exam Mouth Exam: Present: dry mucosa Teeth exam: Present: normal external inspection Throat exam: Present: normal inspection - Neck Neck exam: Present: full ROM - Respiratory Respiratory exam: Present: decreased breath sounds - Expanded Respiratory Exam Location: decreased breath sounds: Left, Right, Lower - Cardiovascular Cardiovascular exam: Present: +S1, +S2 - Expanded Cardiovascular Exam Peripheral pulses: 1+: Femoral (L) PM, Femoral (R) PM, Posterior Tibialis (L), Posterior Tibialis (R), 2+: Carotid (L) PM, Carotid (R) PM, Radial (L), Radial ( R), Dorsalis Pedis (L) PM, Dorsalis Pedis (R) PM - GI/Abdominal Exam GI/Abdominal exam: Present: diminished bowel sounds, distended, soft additional comments: s/p Lap jamila. Abdomen with clear dressings x 4. Clean dry and intact. Patient moans and screams loudly with abdominal palpation. - Rectal Rectal Exam: Present: deferred - Catheter Type: Urethral (Guzman) Additional comments: hematuria from patient pulling on guzman catheter - Extremities Exam Extremities exam: Present: full ROM - Expanded Upper Extremities Exam Shoulder exam: Present: full ROM Upper Arm exam: Present: full ROM Forearm wrist exam: Present: full ROM - Expanded Lower Extremities Exam Lower Leg exam: Present: full ROM - Neurological Exam Neurological exam: Present: altered Additional comments: patient moaning in pain, moving in bed, confused. Cannot communicate clearly - Expanded Neurological Exam Coma Scale Eye Opening: To Pain Coma Scale Motor Response: Localizes to Pain Coma Scale Verbal Response: Confused Coma Scale Total: 11 - Psychiatric Psychiatric exam: Present: agitated - Skin Skin exam: Present: pallor, warm Additional comments: Abdomen incisions [facility] Internal Medicine - CN: Reslt - Labs CBC & Chem 7: 11/11/16 03:25 11/11/16 03:25 Labs: Short CBC 11/11/16 Range/Units 03:25 WBC 11.4 H (4.3-11.1) K/mcL Hgb 9.6 L (12.9-16.9) g/dL Hct 31.4 L (37.5-50.1) % Plt Count 202 (140-400) K/mcL Neutrophils # 7.8 (1.6-8.9) K/mcL BMP 11/11/16 03:25 Sodium 144 Potassium 3.9 Chloride 108 Carbon Dioxide 30 H BUN 11 Creatinine 0.97 Glucose 138 H Calcium 8.7 Liver Function 11/11/16 Range/Units 03:25 Total Bilirubin 0.7 (0.2-1.2) mg/dL AST 37 H (5-34) Units/L ALT 24 (0-55) Units/L Alkaline Phosphatase 98 (38-126) Units/L Albumin 1.8 L (3.5-5.0) g/dL - ABG Interpretation ABG results: ABG ABG pH 7.37 pH Units (7.32-7.45) 11/11/16 11:29 ABG pCO2 56 mmHg (35-45) H 11/11/16 11:29 ABG pO2 69 mmHg (85-104) L 11/11/16 11:29 ABG O2 Saturation 93 % (95-98) L 11/11/16 11:29 PT/INR, D-dimer PT 16.4 Seconds (9.4-12.1) H 11/05/16 00:32 Consult Discharge Plan - Plan Referrals: Liriano,Haroon Silva MD [Primary Care Provider] - (Office request that patient calls to make the appt. after discharge. Thank you) Palliative Quality Palliative Quality: Screen for Code Status: Yes, Screen for Goals of Care: Yes, Screen for Pain: Yes, If Pain Regimen Started, Initiate Bowel Regimen: Yes, Screen for Nausea/Vomitting: Yes Code Status: 11/06/16 12:51 Resuscitation Status: Active [RES] Routine Comment: Resuscitation Status: [id number]
[2016-11-11] MEDS ORDERED: Furosemide 20 MG/2 ML VIAL IVP SCH (15:57)
[2016-11-11] MEDS ORDERED: *HR* LORazepam 2 MG/ML VIAL IVP PRN (16:05)
[2016-11-11 16:30] VITALS: BP 109/55
--- NOTE | 2016-11-11 17:26 | Discharge Summary ---
Date of Encounter: 11/11/16 Time of Encounter: 16:00 - Discharge Diagnosis (1) Acute encephalopathy Priority: Primary Status: Acute (2) Hypernatremia Priority: Primary Status: Resolved (3) Acute pancreatitis Priority: Primary Status: Acute Qualifiers: Pancreatitis type: unspecified pancreatitis type Acute pancreatitis complication: unspecified Qualified Code(s): K85.90 - Acute pancreatitis without necrosis or infection, unspecified (4) CHF (congestive heart failure) Priority: Secondary Status: Chronic Qualifiers: Congestive heart failure type: diastolic Congestive heart failure chronicity: chronic Qualified Code(s): I50.32 - Chronic diastolic (congestive ) heart failure (5) Hypothyroid Priority: Secondary Status: Chronic Qualifiers: Hypothyroidism type: unspecified Qualified Code(s): E03.9 - Hypothyroidism , unspecified (6) Hypertension Priority: Secondary Status: Chronic Qualifiers: Hypertension type: essential hypertension Qualified Code(s): I10 - Essential (primary) hypertension (7) Hyperlipidemia Priority: Secondary Status: Chronic Qualifiers: Hyperlipidemia type: unspecified Qualified Code(s): E78.5 - Hyperlipidemia , unspecified (8) CAD (coronary artery disease) Priority: Secondary Status: Chronic Qualifiers: Coronary Disease-Associated Artery/Lesion type: bypass graft [place] vs. transplanted heart: [place] heart Associated angina: without angina Qualified Code(s): I25.810 - Atherosclerosis of coronary artery bypass graft(s) without angina pectoris (9) Bladder outlet obstruction Priority: Secondary Status: Chronic (10) CKD (chronic kidney disease) stage 3, GFR 30-59 ml/min Priority: Secondary Status: Suspected (11) Pulmonary embolism Priority: Secondary Status: Chronic Qualifiers: Pulmonary embolism type: other Chronicity: acute Acute cor pulmonale presence: without acute cor pulmonale Qualified Code(s): I26.99 - Other pulmonary embolism without acute cor pulmonale (12) DVT (deep venous thrombosis) Priority: Secondary Status: Acute Qualifiers: DVT location: lower extremity Affected thrombotic vein of extremity: tibial Chronicity: acute Laterality: left Qualified Code(s): I82.442 - Acute embolism and thrombosis of left tibial vein - Discharge Medications Home Medications: Amiodarone HCl [Pacerone] 200 mg PO DAILY 02/18/16 [History] Atorvastatin Calcium [Lipitor] 80 mg PO HS 02/18/16 [History] Finasteride [Proscar] 5 mg PO DAILY 02/18/16 [History] Furosemide [Lasix] 40 mg PO DAILY 02/18/16 [History] Levothyroxine Sodium [Levoxyl] 50 mcg PO QAM 02/18/16 [History] Oxybutynin Chloride [Ditropan Xl] 10 mg PO HS 02/18/16 [History] Potassium Chloride [Klor-Con Sprinkle] 20 meq PO BID 02/18/16 [History] Galantamine HBr [Razadyne ER] 24 mg PO DAILY 09/01/16 [History] Loratadine [Allergy Relief] 10 mg PO DAILY PRN 09/01/16 [History] Apixaban [Eliquis] 2.5 mg PO BID 11/05/16 [History] Cholecalciferol (D-3) [Vitamin D] 2,000 unit PO DAILY 11/05/16 [History] Cyanocobalamin (Vitamin B-12) [Vitamin B-12] 1,000 mcg SL DAILY 11/05/16 [ History] Lisinopril [Zestril] 20 mg PO DAILY 11/05/16 [History] guaiFENesin [Guaifenesin] 800 mg PO TID 11/05/16 [History] Allergies/Adverse Reactions: Allergies acetaminophen [From Percocet] Adverse Reaction (Verified 11/05/16 08:16) Hallucinating Oxycodone [From Percocet] Adverse Reaction (Verified 11/05/16 08:16) Hallucinating Procedures/tests Complete & Pending: Procedures Performed prior 72 hours Category Date Time Status CT abd pelvis w iv no oral [CT] Stat Cat Scan 11/11/16 12:[address] head/brain wo con [CT] Stat Cat Scan 11/11/16 11:58 Completed Date of admission: 11/05/16 04:39 Primary care physician: Haroon Liriano MD Consults: 11/07/16 11:51 Consult to Surgery [CONS] Routine Consulting Provider: Surgery [facility] Reason for Consult: Acute gallstone pancreatitis, encephalopathy Call Completed: Yes 11/11/16 11:44 Consult to Palliative Care [CONS] Routine Comment: Consulting Provider: Palliative Care [facility] Reason for Consult: Goals of care discussion Call Completed: Yes Discharging clinician: Ngoc Carmona Anticipated date of discharge: 11/11/16 - Patient Status Disposition: Transfer Critical Access Hosp Condition: Serious Functional capacity at discharge: bed bound Overall status at discharge: patient is not back to baseline - Discharge Instructions Follow Up With: Haroon Liriano MD [Primary Care Provider] - (Office request that patient calls to make the appt. after discharge. Thank you) Hospital course: Mr. Ralph is a 86 year old male snf resident, with multiple medical problems including recent diagnosis of DVT and PE, on anticoagulation, was admitted with worsening abdominal pain, nausea and vomiting. He was noted to have acute pancreatitis along with cholelithiasis and was started on conservative management with bowel rest, IV hydration, supportive care with when necessary antiemetics and pain control with IV Dilaudid. He was also noted to have significant leukocytosis and has been empirically started on IV Zosyn. Patient was noted to be alert and oriented at the time of admission, however by the next morning he was noted to be very confused, disoriented and combative, all this attributed to the use of IV Dilaudid. This was discontinued and patient was managed with when necessary IV Ativan and morphine for agitation and abdominal pain. Surgery was consulted and patient subsequently underwent laparoscopic cholecystectomy, after which his electrolytes, serum creatinine and white blood cell count have improved and he was noted to have no postoperative complications. He was noted to be on Eliquis for anticoagulation for PE, which was changed to subcutaneous Lovenox due to the patient being unable to tolerate oral intake. Despite improvement in his labs and vital signs, patient continued to remain obtunded and whenever slightly alert, continue to report severe abdominal pain, especially in left upper quadrant. He was not alert enough to tolerate any kind of enteral nutrition or oral medications. CT abdomen/pelvis with IV contrast was repeated, which showed evidence of acute pancreatitis with no pseudocyst or abscess, no hematoma. CT head showed no evidence of acute abnormality. At this point, as the patient is not showing improvement to maximal medical intervention, family requested having him transferred to tertiary care facility , preferably to [facility] from where he was recently discharged after being treated for DVT and PE. Case was discussed with , Hospitalist at [place], who agreed that conservative medical management is the treatment option at this time, and kindly accepted this patient's care. - Time Spent with Patient Total time spent providing and/or coordinating discharge services: Greater than 30 minutes (45 min) - Constitutional Vitals: Temp Pulse Resp BP Pulse Ox 98.5 F 76 20 109/55 92 11/11/16 15:00 11/11/16 15:00 11/11/16 16:02 11/11/16 15:00 11/11/16 16:02 General appearance: Present: A&O X 0 (somnolent). Absent: answers questions appropriately - Cardiovascular Cardiovascular exam: Present: RRR, +S1, +S2. Absent: diastolic murmur, gallop, rubs, systolic murmur - GI/Abdominal GI/Abdominal exam: Present: normal bowel sounds, soft (extreme tenderness in LUQ ), no peritoneal signs. Absent: distended, tenderness - VTE Documentation of Mechanical Device: Intermittent pneumatic compression device
== END 2016-11-11 20:17 | disposition critical access hospital (66) | DRG 417 ==
LOC: 3ANU 23:22 → EMEROO 23:22 → 3ANU 11-05 03:51 → SUATTDRO 11-05 04:39
PROVIDERS: ADMIT Family Medicine; ATTEND Internal Medicine